=== PATIENT | male | born 1955 | race Caucasian/White ===

== ENCOUNTER 2017-10-27 10:23 | Inpatient (IN) | payer OTHER ==
[2017-10-27] MEDS ORDERED: Alum-Mag Hydrox-Simethicone Susp (30 mL) PO STA (11:51)
[2017-10-27 12:02] LABS: BASO # 0.1 K/uL (0.0-0.2); BASO % 0.9 % (0.0-2.0); EOS # 0.3 K/uL (0.0-0.7); EOS % 3.1 % (0.0-4.0); HEMOGLOBIN 16.5 g/dL (12.0-18.0); LYMPH # 1.2 K/uL (1.0-4.3); MEAN CELL VOLUME 89.6 fL (80.0-94.0); MEAN CORPUSCULAR HEMOGLOBIN 31.3 pg (27.0-31.0); MEAN CORPUSCULAR HGB CONC 34.9 g/dL (33.0-37.0); MEAN PLATELET VOLUME 10.1 fL (7.2-11.7); MONO # 0.6 K/uL (0.0-0.8); MONO % 7.2 % (0.0-10.0); NEUT # 6.1 K/uL (1.8-7.0); NEUT % 73.8 % (50.0-75.0); NRBC % 0.1 % (0.0-2.0); RBC 5.27 Mil/uL (4.40-5.90); WHITE BLOOD COUNT 8.3 K/uL (4.8-10.8)
[2017-10-27 12:16] LABS: ALB/GLOB RATIO 1.1 (1.0-2.1); ALBUMIN 4.1 g/dL (3.5-5.0); ALT/SGPT 29 U/L (21-72); AST/SGOT 32 U/L (17-59); BLOOD UREA NITROGEN 10 mg/dL (9-20); CALCIUM 9.3 mg/dl (8.6-10.4); GFR AFRICAN-AMERICAN > 60; GFR NON-AFRICAN AMERICAN > 60; LIPASE 54 U/L (23-300)
[2017-10-27 12:25] LABS: B-TYPE NATRIURETIC PEPTIDE 38.4 pg/mL (0-900); CK-MB 1.85 ng/mL (0.0-3.38)
--- NOTE | 2017-10-27 12:27 | RAD ---
Chest x-ray single frontal view History: Shortness of breath. Comparison: None available. Findings: Focal somewhat masslike consolidation at the right lung base which may represent focal infiltrate. Correlation with chest CT may be helpful to exclude underlying lesion. Mild venous congestion. Question trace left pleural effusion with mild left basilar consolidative changes. Mild cardiomegaly. Degenerative changes in the spine and shoulders. Impression: Focal somewhat masslike consolidation at the right lung base which may represent focal infiltrate. Correlation with chest CT may be helpful to exclude underlying lesion. Mild venous congestion. Question trace left pleural effusion with mild left basilar consolidative changes. Mild cardiomegaly.
[2017-10-27] MEDS ORDERED: Sodium Chloride 0.9% 1,000 ML ONE (12:29)
[2017-10-27] MEDS ORDERED: Aluminum Hydroxide/Magnesium Hydroxide Susp (30 mL) ONE (12:29)
[2017-10-27] MEDS: Sodium Chloride 0.9% 1,000 ML IV SCH ×2 (12:33→22:00)
[2017-10-27 13:09] LABS: SQUAMOUS EPITHIAL 4 /hpf (0-5); URINE BILIRUBIN NEGATIVE (NEGATIVE); URINE BLOOD NEGATIVE (NEGATIVE); URINE CLARITY Hazy (Clear); URINE COLOR Yellow (YELLOW); URINE GLUCOSE (UA) NORMAL (Normal); URINE LEUKOCYTE ESTERASE NEG Leu/uL (Negative); URINE PROTEIN NEGATIVE (NEGATIVE)
--- NOTE | 2017-10-27 14:24 | C.PDOC ---
History Of Present Illness 62 y/o male with history of HTN, DM, GERD, presents to ED with c/o chest pain for 1 week associated with sob. Patient states pain started as nagging on right side and became increasing more painful yesterday. States it feels "like acid is coming up". (+) orthopnea. Patient reports he saw his PMD 1 week ago for the problem who increased is antacid medication and referral for endoscopy. Reports pain is less today in comparison to yesterday. No h/o stress test. Time Seen by Provider: 10/27/17 11:20 Chief Complaint (Nursing): Chest Pain History Per: Patient History/Exam Limitations: no limitations Onset/Duration Of Symptoms: Days Current Symptoms Are (Timing): Still Present Past Medical History Reviewed: Historical Data, Nursing Documentation, Vital Signs Vital Signs: Last Vital Signs Temp 97.9 F 10/27/17 15:15 Pulse 70 10/27/17 15:15 Resp 20 10/27/17 15:15 BP 138/78 10/27/17 15:15 Pulse Ox 95 10/27/17 18:09 - Medical History PMH: HTN Surgical History: No Surg Hx - [facility] Procedures OTHER LOCAL DESTRUC SKIN (11/08/13) Family History: States: No Known Family Hx - Social History Hx Alcohol Use: No Hx Substance Use: No - Immunization History Hx Tetanus Toxoid Vaccination: No Hx Influenza Vaccination: No Hx Pneumococcal Vaccination: No Review Of Systems Constitutional: Negative for: Fever, Chills Cardiovascular: Positive for: Chest Pain Respiratory: Positive for: Shortness of Breath. Negative for: Cough Gastrointestinal: Negative for: Nausea, Vomiting Skin: Negative for: Rash Neurological: Negative for: Weakness, Numbness Physical Exam - Physical Exam Appears: Non-toxic, No Acute Distress, Other (Obese) Skin: Warm, Dry, No Rash Head: Atraumatic, Normacephalic Eye(s): bilateral: Normal Inspection, EOMI Nose: Normal Oral Mucosa: Moist Neck: Normal ROM, Supple Chest: Symmetrical Cardiovascular: Rhythm Regular Respiratory: Decreased Breath Sounds, No Rales, No Rhonchi, No Wheezing Gastrointestinal/Abdominal: Soft, No Tenderness, No Guarding, No Rebound Extremity: Normal ROM, Capillary Refill (<2 seconds) Neurological/Psych: Oriented x3, Normal Speech, Normal Cognition ED Course And Treatment - Laboratory Results Result Diagrams: 10/27/17 11:55 10/27/17 11:55 ECG: Interpreted By Me, Viewed By Me ECG Rhythm: Sinus Rhythm ECG Interpretation: Normal Rate From EC (BPM) O2 Sat by Pulse Oximetry: 95 (RA) Pulse Ox Interpretation: Normal - Other Rad CXR X-Ray: Viewed By Me, Read By Radiologist Interpretation: Chest x-ray single frontal view. History: Shortness of breath. Comparison: None available. Findings: Focal somewhat masslike consolidation at the right lung base which may represent focal infiltrate. Correlation with chest CT may be helpful to exclude underlying lesion. Mild venous congestion. Question trace left pleural effusion with mild left basilar consolidative changes. Mild cardiomegaly. Degenerative changes in the spine and shoulders. Impression: Focal somewhat masslike consolidation at the right lung base which may represent focal infiltrate. Correlation with chest CT may be helpful to exclude underlying lesion. Mild venous congestion. Question trace left pleural effusion with mild left basilar consolidative changes. Mild cardiomegaly. Chest CT X-Ray: Viewed By Me, Read By Radiologist Interpretation: PROCEDURE: CT Chest with contrast. HISTORY: Midsternal chest pain. COMPARISON: October 27, 2017. Single-view chest. TECHNIQUE: Contiguous axial images were obtained through the chest with intravenous contrast enhancement. Sagittal and coronal reconstructions were performed. IV contrast: 100 cc Visipaque 320. Radiation dose (DLP): 1046.30 mGy-cm. This CT exam was performed using one or more of the following dose reduction techniques: Automated exposure control, adjustment of the mA and/or kV according to patient size, and/or use of iterative reconstruction technique. FINDINGS: LUNGS: Irregular mass abutting the minor fissure anterior segment right lower lobe measuring 2.8 x 3 x 2.2 cm. The mass is suspicious for primary neoplasm of the lung. MEDIASTINUM: Unremarkable thoracic aorta. No aneurysm or dissection. Normal sized heart. Main pulmonary artery unremarkable. No vascular congestion. No lymphadenopathy. PLEURA: No pleural fluid. No pneumothorax. BONES: Lytic lesion T5 vertebral body a small paravertebral soft tissue mass anteriorly. UPPER ABDOMEN: Hepatomegaly, hepatic steatosis without focal hepatic mass. Cholelithiasis without CT evidence of acute cholecystitis. OTHER FINDINGS: None. IMPRESSION: Spiculated mass right lower lobe highly suspicious for primary neoplasm of the lung. Lytic lesion T5 vertebral body suspicious for osseous metastatic disease. Additional benign and/or incidental findings described above. Progress Note: CT chest, EKG, Blood work ordered. Protonix and IV fluids adminsitered. Spoke to Dr. Leonard agreed upon admission under his service. CXR reading reviewed. CT ordered. CT results reviewed. Results discsussed with Dr Leonard at 6pm. Disposition - Disposition Disposition: HOSPITALIZED Disposition Time: 14:00 Condition: STABLE - Clinical Impression Clinical Impression: Chest pain, SOB (shortness of breath) - PA / CARD FEEDER / Resident Statement MD/DO has reviewed & agrees with the documentation as recorded. - Scribe Statement The provider has reviewed the documentation as recorded by the Elke Morelos All medical record entries made by the Elke were at my direction and personally dictated by me. I have reviewed the chart and agree that the record accurately reflects my personal performance of the history, physical exam, medical decision making, and the department course for this patient. I have also personally directed, reviewed, and agree with the discharge instructions and disposition.
[2017-10-27] MEDS ORDERED: Iohexol 300 100 ML IJ ONE (16:43)
[2017-10-27] MEDS ORDERED: Home Med 1 UNIT (Losartan/Hydrochlorothiazide [Losartan-Hctz 50-12.5 Mg Tab] 1 EACH) PO SCH (18:00)
--- NOTE | 2017-10-27 18:01 | CT ---
PROCEDURE: CT Chest with contrast HISTORY: Midsternal chest pain COMPARISON: October 27, 2017. Single-view chest TECHNIQUE: Contiguous axial images were obtained through the chest with intravenous contrast enhancement. Sagittal and coronal reconstructions were performed. IV contrast: 100 cc Visipaque 320 Radiation dose (DLP): 1046.30 mGy-cm. This CT exam was performed using one or more of the following dose reduction techniques: Automated exposure control, adjustment of the mA and/or kV according to patient size, and/or use of iterative reconstruction technique. FINDINGS: LUNGS: Irregular mass abutting the minor fissure anterior segment right lower lobe measuring 2.8 x 3 x 2.2 cm. The mass is suspicious for primary neoplasm of the lung. MEDIASTINUM: Unremarkable thoracic aorta. No aneurysm or dissection. Normal sized heart. Main pulmonary artery unremarkable. No vascular congestion. No lymphadenopathy. PLEURA: No pleural fluid. No pneumothorax. BONES: Lytic lesion T5 vertebral body a small paravertebral soft tissue mass anteriorly. UPPER ABDOMEN: Hepatomegaly, hepatic steatosis without focal hepatic mass. Cholelithiasis without CT evidence of acute cholecystitis. OTHER FINDINGS: None. IMPRESSION: Spiculated mass right lower lobe highly suspicious for primary neoplasm of the lung. Lytic lesion T5 vertebral body suspicious for osseous metastatic disease. Additional benign and/or incidental findings described above.
[2017-10-28 05:01] LABS: HDL CHOLESTEROL 36 mg/dL (30-70)
[2017-10-28 05:12] LABS: LDL CHOLESTEROL 67 mg/dL (0-129)
[2017-10-28] MEDS ORDERED: Aluminum Hydroxide/Magnesium Hydroxide Susp (30 mL) PO STA (05:22)
[2017-10-28] MEDS: Sodium Chloride 0.9% 1,000 ML IV SCH ×4 (05:43→21:00)
[2017-10-28] MEDS: Enoxaparin 40 mg Syringe SC SCH (10:01)
--- NOTE | 2017-10-28 12:39 | CP.PCM.CON ---
History of Present Illness - History of Present Illness History of Present Illness: Reason for consult: Lung mass HPI 62 yo M with PMHx of HTN, DM and GERD came to ER c/o chest pain for one week and sob. Pt states having pain on right side, getting worse yesterday. Pt reports feeling acid come up. PCP recently increased his antiacid medication. Pt admits to orthopnea. Chest Xray done on admission shows incidental findings of a mass like consolidation on right lung base and left pleural effusion. Pt is seen and examined at bedside. Pt states feeling much better. Pt denies chest pain, on physical exam lungs were clear to auscultation bilaterally. Pt will be going for lung biopsy either today or Tuesday. Pt is suspicious of sleep apnea, PMHx: HTN, DM, GERD PSH: none Allergies: NKDA SH: No alcohol, no substance use Review of Systems - Review of Systems All systems: reviewed and no additional remarkable complaints except (chest pain , heartburn) Past Patient History - Past Social History Smoking Status: Heavy Smoker > 10 Cigarettes Daily - CARDIAC Hx Hypertension: Yes - ENDOCRINE/METABOLIC Hx Diabetes Mellitus Type 2: Yes - GASTROINTESTINAL Other/Comment: Acid reflux - PSYCHIATRIC Hx Substance Use: No - SURGICAL HISTORY Other/Comment: cyst removed from neck, Lt. knee surgery - ANESTHESIA Hx Anesthesia: No Hx Anesthesia Reactions: No Meds Allergies/Adverse Reactions: Allergies Allergy/AdvReac Type Severity Reaction Status Date / Time No Known Allergies Allergy Unverified 10/27/17 10:38 - Medications Medications: Current Medications Aspirin (Ecotrin) 81 mg PO DAILY [facility] Last Admin: 10/28/17 10:00 Dose: 81 mg Bisoprolol Fumarate (Zebeta) 5 mg PO BID [facility] Last Admin: 10/28/17 10:01 Dose: 5 mg Enoxaparin Sodium (Lovenox) 40 mg SC DAILY [facility] Last Admin: 10/28/17 10:01 Dose: 40 mg Glimepiride (Amaryl) 4 mg PO BID [facility] Last Admin: 10/28/17 10:03 Dose: 4 mg Home Med (Losartan/Hydrochlorothiazide [Losartan-Hctz 50-12.5 Mg Tab]) 1 each PO BID [facility] Hydralazine HCl (Apresoline) 50 mg PO BID [facility] Last Admin: 10/28/17 10:00 Dose: 50 mg Sodium Chloride (Sodium Chloride 0.9%) 1,000 mls @ 100 mls/hr IV .Q10H [facility] Last Admin: 10/28/17 08:17 Dose: Not Given Metformin HCl (Glucophage) 1,000 mg PO BID [facility] Pantoprazole Sodium (Protonix Inj) 40 mg IVP DAILY [facility] Last Admin: 10/28/17 10:01 Dose: 40 mg Rosuvastatin Calcium (Crestor) 10 mg PO [facility] Sitagliptin Phosphate (Januvia) 100 mg PO DAILY [facility] Last Admin: 10/28/17 10:00 Dose: 100 mg Tamsulosin HCl (Flomax) 0.4 mg PO DAILY [facility] Last Admin: 10/28/17 10:00 Dose: 0.4 mg Physical Exam - Head Exam Head Exam: ATRAUMATIC, NORMOCEPHALIC - Eye Exam Eye Exam: Normal appearance - ENT Exam ENT Exam: Mucous Membranes Moist - Neck Exam Neck exam: Positive for: Normal Inspection - Respiratory Exam Respiratory Exam: Rhonchi, Wheezes - Cardiovascular Exam Cardiovascular Exam: REGULAR RHYTHM - GI/Abdominal Exam GI & Abdominal Exam: Normal Bowel Sounds, Soft - Extremities Exam Extremities exam: Positive for: normal inspection Results - Vital Signs Recent Vital Signs: Last Vital Signs Temp 98.3 F 10/28/17 08:53 Pulse 78 10/28/17 08:53 Resp 20 10/28/17 08:53 BP 137/79 10/28/17 08:53 Pulse Ox 99 10/28/17 08:53 - Labs Result Diagrams: 10/27/17 11:55 10/27/17 11:55 Labs: Laboratory Results - last 24 hr 10/27/17 10/27/17 10/27/17 13:03 16:16 18:01 POC Glucose (mg/dL) 94 Hemoglobin A1c Troponin I < 0.0120 Triglycerides Cholesterol LDL Cholesterol Direct HDL Cholesterol Urine Color Yellow Urine Clarity Hazy Urine pH 7.0 Ur Specific [place] 1.013 Urine Protein Negative Urine Glucose (UA) Normal Urine Ketones Negative Urine Blood Negative Urine Nitrate Negative Urine Bilirubin Negative Urine Urobilinogen 2.0 Ur Leukocyte Esterase Neg Urine WBC (Auto) 1 Urine RBC (Auto) 1 Ur Squamous Epith Cells 4 10/27/17 10/28/17 10/28/17 20:21 04:47 04:47 POC Glucose (mg/dL) 138 H Hemoglobin A1c 6.5 Troponin I < 0.0120 Triglycerides 143 Cholesterol 133 LDL Cholesterol Direct 67 HDL Cholesterol 36 Urine Color Urine Clarity Urine pH Ur Specific [place] Urine Protein Urine Glucose (UA) Urine Ketones Urine Blood Urine Nitrate Urine Bilirubin Urine Urobilinogen Ur Leukocyte Esterase Urine WBC (Auto) Urine RBC (Auto) Ur Squamous Epith Cells 10/28/17 10/28/17 06:40 11:26 POC Glucose (mg/dL) 113 H 102 Hemoglobin A1c Troponin I Triglycerides Cholesterol LDL Cholesterol Direct HDL Cholesterol Urine Color Urine Clarity Urine pH Ur Specific [place] Urine Protein Urine Glucose (UA) Urine Ketones Urine Blood Urine Nitrate Urine Bilirubin Urine Urobilinogen Ur Leukocyte Esterase Urine WBC (Auto) Urine RBC (Auto) Ur Squamous Epith Cells Assessment & Plan - Assessment and Plan (Free Text) Assessment: Assessment and Plan: 1. Rt Lung mass, probable neoplasm - Chest CT 10/27: Spiculated 2.8 x 3 x 2.2 cm mass right lower lobe highly suspicious for primary neoplasm of the lung. Lytic lesion T5 vertebral body suspicious for osseous metastatic disease. - CXR 10/27: Focal somewhat masslike consolidatioon at the Rt lung base which may represent focal inflitrate. Mild venous congestion. Question trace left pelural effusion with mild left basilar consolidative changes. Mild cardiomegaly , - O2 Sat% 96-99 on RA - IR for biopsy of lung mass 2. Chest pain assoc with SOB 2/2 GERD - Negative HIMA x3 - no significant finding on EKG 10/27 3. Sleep Apnea - O2 Sat% 96-99 on RA - recommend sleep study and breathing test as outpatient
[2017-10-28] MEDS: Albuterol-Ipratrop 3 mg / 0.5 (3 ml) UD INH SCH ×2 (13:36→20:07)
--- NOTE | 2017-10-28 17:55 | CARD ---
APPROVED REPORT EXAM: Two-dimensional and M-mode echocardiogram with Doppler and color Doppler. Other Information Quality : FairRhythm : NSR INDICATION Chest Pain RISK FACTORS Obesity 2D DIMENSIONS IVSd1.0 (0.7-1.1cm)LVDd4.7 (3.9-5.9cm) PWd1.1 (0.7-1.1cm)LVDs2.8 (2.5-4.0cm) FS (%) 40.5 %LVEF (%)71.2 (>50%) M-Mode DIMENSIONS Left Atrium (MM)5.24 (2.5-4.0cm)Aortic Root3.59 (2.2-3.7cm) Aortic Cusp Exc.2.25 (1.5-2.0cm) Mitral Valve MV E Lehaxrak15.6cm/sMV A Xnozgznk150.7cm/sE/A ratio0.7 TDI E/Lateral E'0.0E/Medial E'0.0 Tricuspid Valve TR Peak Loteektz016hx/sTR Peak Gr.26mmHg LEFT VENTRICLE The left ventricle is normal size. There is normal left ventricular wall thickness. The left ventricular function is normal. The left ventricular ejection fraction is within the normal range. There is normal LV segmental wall motion. Transmitral Doppler flow pattern is Grade I-abnormal relaxation pattern. RIGHT VENTRICLE The right ventricle is normal size. There is normal right ventricular wall thickness. The right ventricular systolic function is normal. ATRIA The left atrium is mildly dilated. The right atrium is borderline dilated. AORTIC VALVE The aortic valve is normal in structure. There is trace aortic regurgitation. There is no aortic valvular stenosis. MITRAL VALVE The mitral valve is mildly thickened. There is no mitral valve stenosis. There is no mitral valve regurgitation noted. TRICUSPID VALVE The tricuspid valve is normal in structure. GREAT VESSELS The aortic root is normal in size. The IVC was not visualized. PERICARDIAL EFFUSION There is a trace circumferential pericardial effusion. <Conclusion> The left ventricle is normal size. There is normal left ventricular wall thickness. The left ventricular function is normal. The left ventricular ejection fraction is within the normal range. There is normal LV segmental wall motion. Transmitral Doppler flow pattern is Grade I-abnormal relaxation pattern.
--- NOTE | 2017-10-28 22:00 | CARD ---
APPROVED REPORT EKG Measurement Heart [id number] CT [id number] <Conclusion> Normal sinus rhythm Normal ECG
[2017-10-29] MEDS ORDERED: Aluminum Hydroxide/Magnesium Hydroxide Susp (30 mL) PO ONE (00:45)
--- NOTE | 2017-10-29 00:50 | CON ---
DATE: 10/28/2017. REASON FOR CONSULTATION: Shortness of breath. HISTORY OF PRESENT ILLNESS: The patient is a 62-year-old morbidly obese male, who is a smoker. He has a history of gastroesophageal reflux according to him. He presented because of shortness of breath. Chest CT scan revealed speculated mass in the right lower lobe, highly suspicious of primary neoplasm. Lytic lesions in T4 vertebra, suspicious of osseus metastatic lesion. The patient denies any recent loss of weight and denies any hemoptysis. SOCIAL HISTORY: The patient is a smoker. MEDICATIONS: Amaryl 4 mg p.o. twice a day, hydralazine 50 mg twice a day, Crestor 10 mg once a day, aspirin 81 mg once a day, Januvia 100 mg once a day, Lovenox 40 mg subcutaneous once a day, Zebeta 5 mg twice a day, Spiriva 18 mcg inhalation daily. PHYSICAL EXAMINATION: GENERAL: The patient is a morbidly obese male, who does not appear to be in acute distress. VITAL SIGNS: Blood pressure 137/79, heart rate 78, temperature 98.3, respirations 20. HEENT: Normocephalic. CHEST: Bilateral rhonchi. HEART: S1, S2 regular. EXTREMITIES: Trace leg edema. LABORATORY DATA: Hemoglobin and hematocrit 16.5 and 47.2, white count and platelet count are within normal limits. SMA-7 is within normal limits, except for glucose of 116. Three sets of troponins are negative. Lipid profile is within normal limits. Chest x-ray reveals cardiomegaly, prominent bronchovascular markings and questionable right lower lobe mass. EKG revealed normal sinus rhythm. ASSESSMENT: 1. Right lower lobe lung mass with questionable bony metastases. 2. Hypertension and diabetes mellitus. RECOMMENDATIONS: Continue current metformin, subcutaneous Lovenox, Protonix and Zebeta. I will review the echocardiographic study that was performed today. The plan is to perform a CT guided needle biopsy on the patient's right lower lobe lung mass. Lopez Daniels MD
[2017-10-29] MEDS: Albuterol-Ipratrop 3 mg / 0.5 (3 ml) UD INH SCH ×4 (01:22→20:08)
[2017-10-29] MEDS: Sodium Chloride 0.9% 1,000 ML IV SCH ×2 (05:31)
--- NOTE | 2017-10-29 08:51 | HP ---
HISTORY OF PRESENT ILLNESS: This is a 62-year-old male who is morbidly obese with history of multiple medical problems, presented to emergency room with worsening chest pain over 1 week duration. The patient stated that he has a feeling that acid was coming up, and the proton pump inhibitor was increased last week but the pain continued on the right side and was increasing with movement as well as in breathing. The patient presented to emergency room for evaluation, and subsequently, admitted for further management. Positive exertional shortness of breath. Other review of systems is negative. ALLERGIES: NO KNOWN ALLERGY. MEDICATIONS: As per MAR. SOCIAL HISTORY: Smoker. No EtOH or substance abuse. FAMILY HISTORY: Not contributory. PAST MEDICAL HISTORY: Type 2 diabetes mellitus, hypertension. PHYSICAL EXAMINATION: GENERAL: The patient is in bed, not in any cardiopulmonary distress at the time of this examination. VITAL SIGNS: Blood pressure 137/79, temperature 98.3, respiratory rate 20, and pulse 78. HEENT: Pupils equal and reactive to light. Normal-appearing mucosa of the conjunctivae, oropharynx, and nasal membrane mucosa. NECK: Supple. No JVD. No carotid bruit. No lymph node. No thyromegaly. CHEST AND LUNGS: Bilateral symmetrical expansion. Good air exchange. No rales, no rhonchi. CARDIOVASCULAR SYSTEM: PMI not localized. S1, S2. No additional sounds. ABDOMEN: Normoactive bowel sounds. No tenderness. No organomegaly. No masses. EXTREMITIES: No cyanosis, no clubbing, no edema. A[employer] COMMODITIES GRADER: Alert, awake, oriented x2. No neurological deficit could be appreciated. Both chest x-ray and CAT scan showed that there is a right lung mass, and there is a lytic lesion on T5 suggestive for metastatic disease. ASSESSMENT: 1. Right lung mass as a possible cause for right-sided chest pain with lytic lesion at T5. 2. Type 2 diabetes mellitus. 3. Hypertension. 4. Gastroesophageal reflux disease. PLAN: We will do cardiac enzymes to rule out myocardial infarction. Cardiology and pulmonary consult, and IR consult for possible biopsy. Accu-Cheks with insulin coverage. Resume the patient's home medications. Lucero Leonard MD [facility] # [id number]
[2017-10-29] MEDS: Tiotropium 18 mcg Cap For Inhalation INH SCH (09:00)
[2017-10-29] MEDS: Enoxaparin 40 mg Syringe SC SCH (09:52)
--- NOTE | 2017-10-29 14:52 | PN ---
DATE: SUBJECTIVE: The patient complains of acid pain. He denies any chest pain retrosternally. PHYSICAL EXAMINATION: VITAL SIGNS: Blood pressure 132/82, heart rate 63, temperature 97.8, respirations 20. HEENT: Normocephalic. CHEST: Bilateral rhonchi. HEART: S1 and S2, regular. EXTREMITIES: 1+ pitting edema. LABORATORY DATA: Today's blood sugars are 104, 115, 151. Echocardiographic study revealed normal left ventricular size, wall thickness, and systolic function and grade 1 abnormal relaxation pattern. ASSESSMENT: 1. Right lower lobe lung mass. 2. Chronic obstructive lung disease. 3. Chest pain, myocardial infarction ruled out. 4. History of acid reflux. RECOMMENDATIONS: Continue hydralazine 50 mg twice a day, Cozaar 50 mg once a day, subcutaneous Lovenox at 40 mg once a day, hydrochlorothiazide 12.5 mg once a day, Protonix at 40 mg intravenously once a day, Zebeta at 5 mg twice a day. Discontinue aspirin for now. Lopez Daniels MD
--- NOTE | 2017-10-29 18:24 | CP.PCM.PN ---
Subjective - Date & Time of Evaluation Date of Evaluation: 10/29/17 Time of Evaluation: 16:00 - Subjective Subjective: The patient seen and examined Complaining of nasal congestion and postnasal drip GERD much better Denies shortness of breath Afebrile Lung biopsy on Tuesday Start Flonase Objective - Vital Signs/Intake and Output Vital Signs (last 24 hours): Temp Pulse Resp BP Pulse Ox 98.2 F 80 20 157/78 H 95 10/29/17 15:00 10/29/17 16:00 10/29/17 15:00 10/29/17 15:00 10/29/17 15:00 - Medications Medications: Current Medications Albuterol/Ipratropium (Duoneb 3 Mg/0.5 Mg (3 Ml) Ud) 3 ml INH RQ6 [facility] Last Admin: 10/29/17 13:09 Dose: 3 ml Bisoprolol Fumarate (Zebeta) 5 mg PO BID [facility] Last Admin: 10/29/17 17:53 Dose: 5 mg Enoxaparin Sodium (Lovenox) 40 mg SC DAILY [facility] Last Admin: 10/29/17 09:52 Dose: 40 mg Fluticasone Propionate (Flonase) 1 spr AIDEN DAILY [facility] Glimepiride (Amaryl) 4 mg PO BID [facility] Last Admin: 10/29/17 17:11 Dose: Not Given Hydralazine HCl (Apresoline) 50 mg PO BID [facility] Last Admin: 10/29/17 17:53 Dose: 50 mg Hydrochlorothiazide (Microzide) 12.5 mg PO DAILY [facility] Last Admin: 10/29/17 09:52 Dose: 12.5 mg Sodium Chloride (Sodium Chloride 0.9%) 1,000 mls @ 100 mls/hr IV .Q10H [facility] Last Admin: 10/29/17 05:31 Dose: 100 mls/hr Losartan Potassium (Cozaar) 50 mg PO DAILY [facility] Last Admin: 10/29/17 09:52 Dose: 50 mg Metformin HCl (Glucophage) 1,000 mg PO BID [facility] Pantoprazole Sodium (Protonix Inj) 40 mg IVP DAILY [facility] Last Admin: 10/29/17 09:52 Dose: 40 mg Rosuvastatin Calcium (Crestor) 10 mg PO HS [facility] Last Admin: 10/28/17 22:05 Dose: 10 mg Sitagliptin Phosphate (Januvia) 100 mg PO DAILY [facility] Last Admin: 10/29/17 09:52 Dose: 100 mg Tamsulosin HCl (Flomax) 0.4 mg PO DAILY [facility] Last Admin: 10/29/17 09:52 Dose: 0.4 mg Tiotropium [place] (Spiriva) 18 mcg INH RQ24 [facility] Last Admin: 10/29/17 09:00 Dose: 18 mcg - Labs Labs: 10/27/17 11:55 10/27/17 11:55
--- NOTE | 2017-10-30 01:22 | PN ---
DATE: 10/29/2017 SUBJECTIVE: The patient was seen today, 10/29/2017. He is still having some right-sided chest pain, but the hyperacidity is improving. PHYSICAL EXAMINATION: VITAL SIGNS: Blood pressure is 157/78, temperature 98.2, respiratory rate 20, and pulse 68. HEENT: Pupils equal, and reactive to light. Normal-appearing mucosa of the conjunctivae, oropharynx, and nasal membrane mucosa. NECK: Supple. No JVD. No carotid bruit. No lymph node. No thyromegaly. CHEST/LUNGS: Bilateral symmetrical expansion. Good air exchange. No rales, no rhonchi. CARDIOVASCULAR SYSTEM: PMI not localized. S1, S2. No additional sounds. ABDOMEN: Normoactive bowel sounds. No tenderness. No organomegaly. No masses. EXTREMITIES: No cyanosis, no clubbing, no edema. LINING SEWER: Alert, awake, and oriented x3. No neurological deficit could be appreciated. ASSESSMENT: 1. Chest pain, likely musculoskeletal with right lung mass and lytic lesion in T5 suggestive of metastasis. 2. Gastroesophageal reflux disease. 3. Hypertension. 4. Type 2 diabetes mellitus. PLAN: Continue current medications. The patient is scheduled for CT-guided biopsy by IR. Lucero Leonard MD
[2017-10-30] MEDS: Albuterol-Ipratrop 3 mg / 0.5 (3 ml) UD INH SCH ×4 (01:41→20:39)
[2017-10-30 06:44] LABS: HEMOGLOBIN 15.1 g/dL (12.0-18.0); MEAN CELL VOLUME 89.8 fL (80.0-94.0); MEAN CORPUSCULAR HEMOGLOBIN 31.3 pg (27.0-31.0); MEAN CORPUSCULAR HGB CONC 34.8 g/dL (33.0-37.0); RBC 4.84 Mil/uL (4.40-5.90); WHITE BLOOD COUNT 6.9 K/uL (4.8-10.8)
[2017-10-30 06:56] LABS: INR 1.1
[2017-10-30 07:06] LABS: ALBUMIN 3.6 g/dL (3.5-5.0); ALT/SGPT 36 U/L (21-72); AST/SGOT 35 U/L (17-59); BLOOD UREA NITROGEN 13 mg/dL (9-20); CALCIUM 8.6 mg/dl (8.6-10.4); GFR AFRICAN-AMERICAN > 60; GFR NON-AFRICAN AMERICAN > 60
[2017-10-30] MEDS: Tiotropium 18 mcg Cap For Inhalation INH SCH (07:37)
[2017-10-30] MEDS: Fluticasone Nasal 50 mcg/Spray NAS SCH (09:33)
[2017-10-30] MEDS ORDERED: Fluticasone Nasal 50 mcg/Spray NAS SCH (10:00)
--- NOTE | 2017-10-30 19:17 | PN ---
DATE: 10/30/2017 SUBJECTIVE: The patient has been experiencing what he describes as acid reflux. PHYSICAL EXAMINATION: VITAL SIGNS: Blood pressure 133/77, heart rate 63, temperature 97.9, respirations 18. HEENT: Head is normocephalic. CHEST: Bilateral rhonchi. HEART: S1 and S2, regular. EXTREMITIES: 1+ pitting edema. LABORATORY DATA: Today's SMA-7 is within normal limits except for glucose of 112. PT, PTT, INR are within normal limit. Today's hemoglobin, hematocrit, white count, and platelet count are within normal limit. ASSESSMENT: 1. Right lower lobe lung mass. 2. Chronic obstructive lung disease. 3. Uncontrolled diabetes mellitus. RECOMMENDATIONS: Continue current Amaryl, hydralazine Cozaar, Crestor, albuterol, Flonase, metformin. Hold subcutaneous Lovenox tomorrow for the planned lung biopsy. Lopez Daniels MD
--- NOTE | 2017-10-31 00:42 | PN ---
DATE: 10/30/2017 SUBJECTIVE: The patient is seen today, 10/30/2017. He still has some right-sided chest pain. OBJECTIVE: VITAL SIGNS: Blood pressure is 134/85, temperature 98.3, respiratory rate 20, pulse 65. HEENT: Pupils equal and reactive to light. Normal-appearing mucosa of the conjunctivae, oropharynx, and nasal membrane mucosa. NECK: Supple. No JVD. No carotid bruit. No lymph node. No thyromegaly. CHEST AND LUNGS: Bilateral symmetrical expansion. Good air exchange. No rales, no rhonchi. CARDIOVASCULAR SYSTEM: PMI not localized. S1, S2. No additional sounds. ABDOMEN: Normoactive bowel sounds. No tenderness. No organomegaly. No masses. EXTREMITIES: No cyanosis, no clubbing, no edema. TRANSLATOR/INTERPRETER: Alert, awake, oriented x2. No neurological deficit could be appreciated. ASSESSMENT: 1. Chest pain, myocardial infarction ruled out. 2. Right lung mass with lytic lesion in T5 suggestive of metastasis. 3. Type 2 diabetes mellitus. 4. Hypertension. 5. Smoker. PLAN: Discussed the patient's condition with Cardiology who suggested to do a stress test. The patient also for CT-guided biopsy of the right lung mass by IR. Lucero Leonard MD
[2017-10-31] MEDS: Albuterol-Ipratrop 3 mg / 0.5 (3 ml) UD INH SCH ×4 (01:19→21:09)
[2017-10-31] MEDS: Tiotropium 18 mcg Cap For Inhalation INH SCH (08:10)
[2017-10-31] MEDS ORDERED: Midazolam 2 MG/2 ML VIAL ONE (09:47)
[2017-10-31] MEDS: Fluticasone Nasal 50 mcg/Spray NAS SCH (10:20)
--- NOTE | 2017-10-31 10:28 | PCM.SURG1 ---
Surgeon's Initial Post Op Note - Surgeon's Notes Surgeon: Justin Escalona MD Associate Professor Of Geology: NONE Type of Anesthesia: IV Sedation Pre-Operative Diagnosis: Right lung nodule Operative Findings: CT showed a spiculated 2.8 cm right lung nodule. Post-Operative Diagnosis: Right lung nodule Operation Performed: CT guided core biopsy. Specimen/Specimens Removed: 20-gauge core x 2 Estimated Blood Loss: EBL {In ML}: 0 Blood Products Given: N/A Drains Used: No Drains Post-Op Condition: Fair Date of Surgery/Procedure: 10/31/17 Time of Surgery/Procedure: 10:25
--- NOTE | 2017-10-31 11:34 | CT ---
. PROCEDURE: Date of procedure: 10/31/2017 Procedure: 1. CT-guided lung nodule biopsy, CPT [address] Guidance for biopsy, [address] Radiation: 1151.52 mGy-cm Medications: The patient was sedated by anesthesiologist along with physiologic monitoring. HISTORY: Right upper lobe lung nodule TECHNIQUE: Following informed consent, the Pt's chest was marked. The Pt was placed prone on the CT table and procedure time out was performed. A noncontrast CT scan was performed. Noncontrast CT scan confirmed the presence of a peripheral 2.8 cm mass. A skin localizer was placed on the patient's right back and a repeat CT scan was performed. The skin was marked, prepped, and draped in the usual sterile fashion. After the skin was anesthetized with lidocaine and the patient sedated by the anesthesiologist, a 20 gauge core needle was advanced percutaneously under direct CT guidance into the mass. Upon confirmation of needle position, two 20-gauge core specimens were obtained and sent for routine pathology. The needle was removed and a xeroform dressing was applied. A post biopsy CT scan showed no pneumothorax. IMPRESSION: CT guided core biopsy right lung nodule.
--- NOTE | 2017-10-31 13:03 | RAD ---
PROCEDURE: CHEST RADIOGRAPH, 1 VIEW HISTORY: Status post right lung mass biopsy. COMPARISON: None available. FINDINGS: LUNGS: Slight vascular congestion. Opacity right lower lobe consistent with lung nodule seen on CT scan. PLEURA: No pneumothorax or pleural fluid seen. CARDIOVASCULAR: Slightly enlarged cardiopericardial silhouette. OSSEOUS STRUCTURES: No significant abnormalities. VISUALIZED UPPER ABDOMEN: Normal. OTHER FINDINGS: None. IMPRESSION: No pneumothorax following biopsy of right lung nodule.
--- NOTE | 2017-10-31 15:46 | CP.PCM.PN ---
Subjective - Date & Time of Evaluation Date of Evaluation: 10/31/17 Time of Evaluation: 11:30 - Subjective Subjective: Patient seen and examined at bedside after returning from R-guided lung biopsy today. The patient feels better and would like to go home. Informed the patient that from a pulmonary standpoint he is ready for discharge but will need outpatient follow-up. Assessment and Plan: 1. Rt Lung mass, probable neoplasm - Chest CT 10/27: Spiculated 2.8 x 3 x 2.2 cm mass right lower lobe highly suspicious for primary neoplasm of the lung. Lytic lesion T5 vertebral body suspicious for osseous metastatic disease. - CXR 10/27: Focal somewhat masslike consolidatioon at the Rt lung base which may represent focal inflitrate. Mild venous congestion. Question trace left pelural effusion with mild left basilar consolidative changes. Mild cardiomegaly , - lung biopsy today, results pending 2. Chest pain assoc with SOB 2/2 GERD - protonix 3. Sleep Apnea - O2 Sat% 96-99 on RA - recommend sleep study and breathing test as outpatient Objective - Vital Signs/Intake and Output Vital Signs (last 24 hours): Temp Pulse Resp BP Pulse Ox 97.6 F 73 20 138/81 97 10/31/17 08:28 10/31/17 12:21 10/31/17 08:28 10/31/17 08:28 10/31/17 08:28 Intake and Output: 10/31/17 10/31/17 06:59 18:59 Intake Total 480 350 Balance 480 350 - Medications Medications: Current Medications Albuterol/Ipratropium (Duoneb 3 Mg/0.5 Mg (3 Ml) Ud) 3 ml INH RQ6 [facility] Last Admin: 10/31/17 13:43 Dose: Not Given Bisoprolol Fumarate (Zebeta) 5 mg PO BID [facility] Last Admin: 10/31/17 10:20 Dose: Not Given Enoxaparin Sodium (Lovenox) 40 mg SC DAILY [facility] Last Admin: 10/29/17 09:52 Dose: 40 mg Fluticasone Propionate (Flonase) 1 spr AIDEN DAILY [facility] Last Admin: 10/31/17 10:20 Dose: Not Given Glimepiride (Amaryl) 4 mg PO BID [facility] Last Admin: 10/31/17 09:19 Dose: Not Given Hydralazine HCl (Apresoline) 50 mg PO BID [facility] Last Admin: 10/31/17 10:19 Dose: Not Given Hydrochlorothiazide (Microzide) 12.5 mg PO DAILY [facility] Last Admin: 10/31/17 11:51 Dose: 12.5 mg Losartan Potassium (Cozaar) 50 mg PO DAILY [facility] Last Admin: 10/31/17 11:49 Dose: 50 mg Metformin HCl (Glucophage) 1,000 mg PO BID [facility] Pantoprazole Sodium (Protonix Inj) 40 mg IVP DAILY [facility] Last Admin: 10/31/17 10:20 Dose: Not Given Rosuvastatin Calcium (Crestor) 10 mg PO HS [facility] Last Admin: 10/30/17 21:57 Dose: 10 mg Sitagliptin Phosphate (Januvia) 100 mg PO DAILY [facility] Last Admin: 10/31/17 10:20 Dose: Not Given Tamsulosin HCl (Flomax) 0.4 mg PO DAILY [facility] Last Admin: 10/31/17 11:50 Dose: 0.4 mg Tiotropium [place] (Spiriva) 18 mcg INH RQ24 [facility] Last Admin: 10/31/17 08:10 Dose: 18 mcg - Labs Labs: 10/30/17 06:38 10/30/17 06:38 PT 12.0 SECONDS (9.7-12.2) 10/30/17 06:38 INR 1.1 10/30/17 06:38 APTT 34 SECONDS (21-34) 10/30/17 06:38
--- NOTE | 2017-10-31 21:23 | PN ---
DATE: SUBJECTIVE: The patient denies any chest pain. He underwent needle-guided biopsy. Chest x-ray revealed normal pneumothorax. PHYSICAL EXAMINATION: VITAL SIGNS: Blood pressure 138/81, heart rate 64, temperature 97.6, respirations 20. HEENT: Normocephalic. CHEST: Clear. HEART: S1 and S2, regular. EXTREMITIES: Trace leg edema. The patient underwent a treadmill stress test; however, he exercised for 3 minutes on Sanjay protocol. Case was terminated due to significant shortness of breath. The patient achieved 72% of the predicted maximal heart rate. There was no chest pain or ischemic EKG changes. ASSESSMENT: 1. Right lower lobe lung mass with possible spinal Met. 2. Atypical chest pain. 3. Diabetes mellitus. 4. Morbid obesity. 5. Chronic obstructive lung disease. RECOMMENDATIONS: The case was discussed with the primary physician. Continue current conservative medical management. Cardiac catheterization, so far is not justified unless the patient has more typical current level of chest pain or has ischemic EKG changes. I will obtain venous Doppler of the lower extremities. Lopez Daniels MD MTDRichard
--- NOTE | 2017-10-31 22:24 | CP.PCM.CON ---
History of Present Illness - History of Present Illness History of Present Illness: 62 year old male with a history of tobacco abuse, DM, HTN, GERD, presenting with chest pain and shortness of breath, found to have a RLL lung mass s/p percutaneous biopsy. The patient notes to right sided chest pain with shortness of breath, worsening for about 1 week which prompted him to come to the hospital. He feels his pain is related to acid reflux and had a recent increase in his antacid medication by his PMD. Review of his imaging shows a 3cm RLL mass with a T5 lytic lesion. Past medical history: tobacco abuse, HTN, DM, GERD Past surgical history: Neck and knee surgery Family history: Mother had cervical cancer Social history: 1/2ppd x 40 years, denies alcohol, and illicit drug use. Allergies: NKA Review of systems: All remaining review of systems including HEENT, cardiovascular, respiratory, gastrointestinal, genitourinary, musculoskeletal, dermatologic, neurologic, and psychiatric are negative unless mentioned in the HPI. Past Patient History - Past Social History Smoking Status: Current Some Days Smoker - CARDIAC Hx Hypertension: Yes - ENDOCRINE/METABOLIC Hx Diabetes Mellitus Type 2: Yes - MUSCULOSKELETAL/RHEUMATOLOGICAL Hx Falls: No - GASTROINTESTINAL Other/Comment: Acid reflux - PSYCHIATRIC Hx Substance Use: No - SURGICAL HISTORY Other/Comment: cyst removed from neck, Lt. knee surgery - ANESTHESIA Hx Anesthesia: No Hx Anesthesia Reactions: No Meds Allergies/Adverse Reactions: Allergies Allergy/AdvReac Type Severity Reaction Status Date / Time No Known Allergies Allergy Unverified 10/27/17 10:38 - Medications Medications: Current Medications Albuterol/Ipratropium (Duoneb 3 Mg/0.5 Mg (3 Ml) Ud) 3 ml INH RQ6 [facility] Last Admin: 10/31/17 21:09 Dose: 3 ml Bisoprolol Fumarate (Zebeta) 5 mg PO BID [facility] Last Admin: 10/31/17 18:30 Dose: 5 mg Enoxaparin Sodium (Lovenox) 40 mg SC DAILY [facility] Last Admin: 10/29/17 09:52 Dose: 40 mg Fluticasone Propionate (Flonase) 1 spr AIDEN DAILY [facility] Last Admin: 10/31/17 10:20 Dose: Not Given Glimepiride (Amaryl) 4 mg PO BID [facility] Last Admin: 10/31/17 18:30 Dose: Not Given Hydralazine HCl (Apresoline) 50 mg PO BID [facility] Last Admin: 10/31/17 18:30 Dose: 50 mg Hydrochlorothiazide (Microzide) 12.5 mg PO DAILY [facility] Last Admin: 10/31/17 11:51 Dose: 12.5 mg Losartan Potassium (Cozaar) 50 mg PO DAILY [facility] Last Admin: 10/31/17 11:49 Dose: 50 mg Metformin HCl (Glucophage) 1,000 mg PO BID [facility] Pantoprazole Sodium (Protonix Inj) 40 mg IVP DAILY [facility] Last Admin: 10/31/17 10:20 Dose: Not Given Rosuvastatin Calcium (Crestor) 10 mg PO HS [facility] Last Admin: 10/31/17 21:27 Dose: 10 mg Sitagliptin Phosphate (Januvia) 100 mg PO DAILY [facility] Last Admin: 10/31/17 10:20 Dose: Not Given Tamsulosin HCl (Flomax) 0.4 mg PO DAILY [facility] Last Admin: 10/31/17 11:50 Dose: 0.4 mg Tiotropium [place] (Spiriva) 18 mcg INH RQ24 [facility] Last Admin: 10/31/17 08:10 Dose: 18 mcg Physical Exam - Head Exam Head Exam: ATRAUMATIC - Eye Exam Eye Exam: Normal appearance - ENT Exam ENT Exam: Mucous Membranes Dry - Respiratory Exam Respiratory Exam: NORMAL BREATHING PATTERN - Cardiovascular Exam Cardiovascular Exam: +S1, +S2 - GI/Abdominal Exam GI & Abdominal Exam: Normal Bowel Sounds - Neurological Exam Neurological exam: Oriented x3 - Psychiatric Exam Psychiatric exam: Normal Affect, Normal Mood - Skin Skin Exam: Warm Results - Vital Signs Recent Vital Signs: Last Vital Signs Temp 98.4 F 10/31/17 15:48 Pulse 83 10/31/17 16:00 Resp 20 10/31/17 15:48 BP 145/91 H 10/31/17 15:48 Pulse Ox 95 10/31/17 15:48 - Labs Result Diagrams: 10/30/17 06:38 10/30/17 06:38 Labs: Laboratory Results - last 24 hr 10/31/17 10/31/17 10/31/17 06:24 09:10 12:00 POC Glucose (mg/dL) 96 116 H 102 10/31/17 10/31/17 17:06 20:51 POC Glucose (mg/dL) 107 86 Assessment & Plan (1) Lung mass Assessment and Plan: concerning for malignancy s/p percutaneous biopsy Lytic lesion concerning for metastatic disease outpatient f/u of biopsy outpatient PET CT scan and MRI brain to obtain baseline staging Thank you for this interesting consult. Status: Acute
--- NOTE | 2017-11-01 00:48 | PN ---
DATE: 10/31/2017 SUBJECTIVE: The patient is seen today, 10/31/2017. He is still having right-sided chest pain, status post CT-guided biopsy by interventional radiologist today. OBJECTIVE: VITAL SIGNS: Blood pressure 145/91, temperature 98.4, respiratory rate 20, and pulse 80. HEENT: Pupils equal and reactive to light. Normal-appearing mucosa of the conjunctivae, oropharynx, and nasal membrane mucosa. NECK: Supple. No JVD. No carotid bruit. No lymph nodes. No thyromegaly. CHEST AND LUNGS: Bilateral symmetrical expansion. Good air exchange. No rales. No rhonchi. CARDIOVASCULAR SYSTEM: PMI not localized. S1, S2. No additional sounds. ABDOMEN: Normoactive bowel sounds. No tenderness. No organomegaly. No masses. EXTREMITIES: No cyanosis, no clubbing, no edema. AWNING CRAFTSMAN: Alert, awake, and oriented x2. No neurological deficit could be appreciated. ASSESSMENT: 1. Chest pain. Differential diagnosis cardiac versus gastroesophageal reflux. 2. Right lung mass with lytic lesion on T5. 3. Hypertension. 4. Type 2 diabetes mellitus. 5. Smoker. 6. Morbid obesity. PLAN: I discussed the patient's condition with Cardiology who did a submaximal stress test and cleared the patient for EGD. GI consult was called and also oncology consult was called for lung mass with possible bone metastasis. Lucero Leonard MD
[2017-11-01] MEDS: Albuterol-Ipratrop 3 mg / 0.5 (3 ml) UD INH SCH ×4 (03:35→20:13)
--- NOTE | 2017-11-01 08:22 | CP.PCM.CON ---
History of Present Illness - History of Present Illness History of Present Illness: ASked to see pt for epig pain and reflux. h/o DM, HTN, obesity. Admitted for CP and SOB. Pt reports worse reflux x 2 weeks- severe.- improving with PPI. Reports dysphagia 4 mo ago- which improved. Denies wt loss, RB Review of Systems - Constitutional Constitutional: absent: Anorexia, Chills, Weight Gain, Weight Loss - Cardiovascular Cardiovascular: Chest Pain, Dyspnea - Respiratory Respiratory: Dyspnea on Exertion. absent: Hemoptysis - Gastrointestinal Gastrointestinal: Abdominal Pain, Belching, Dysphagia. absent: Coffee Ground Emesis, Constipation, Diarrhea, Hematemesis, Hematochezia, Loose Stools, Melena , Odynophagia - Genitourinary Genitourinary: absent: Dysuria, Hematuria - Musculoskeletal Musculoskeletal: absent: Muscle Cramps - Integumentary Integumentary: absent: Jaundice - Neurological Neurological: absent: Convulsions - Psychiatric Psychiatric: absent: Hallucinations Past Patient History - Past Social History Smoking Status: Current Some Days Smoker - CARDIAC Hx Hypertension: Yes - ENDOCRINE/METABOLIC Hx Diabetes Mellitus Type 2: Yes - MUSCULOSKELETAL/RHEUMATOLOGICAL Hx Falls: No - GASTROINTESTINAL Other/Comment: Acid reflux - PSYCHIATRIC Hx Substance Use: No - SURGICAL HISTORY Other/Comment: cyst removed from neck, Lt. knee surgery - ANESTHESIA Hx Anesthesia: No Hx Anesthesia Reactions: No Meds Allergies/Adverse Reactions: Allergies Allergy/AdvReac Type Severity Reaction Status Date / Time No Known Allergies Allergy Unverified 10/27/17 10:38 - Medications Medications: Current Medications Albuterol/Ipratropium (Duoneb 3 Mg/0.5 Mg (3 Ml) Ud) 3 ml INH RQ6 [facility] Last Admin: 11/01/17 03:35 Dose: Not Given Bisoprolol Fumarate (Zebeta) 5 mg PO BID [facility] Last Admin: 10/31/17 18:30 Dose: 5 mg Enoxaparin Sodium (Lovenox) 40 mg SC DAILY [facility] Last Admin: 10/29/17 09:52 Dose: 40 mg Fluticasone Propionate (Flonase) 1 spr AIDEN DAILY [facility] Last Admin: 10/31/17 10:20 Dose: Not Given Glimepiride (Amaryl) 4 mg PO BID [facility] Last Admin: 10/31/17 18:30 Dose: Not Given Hydralazine HCl (Apresoline) 50 mg PO BID [facility] Last Admin: 10/31/17 18:30 Dose: 50 mg Hydrochlorothiazide (Microzide) 12.5 mg PO DAILY [facility] Last Admin: 10/31/17 11:51 Dose: 12.5 mg Losartan Potassium (Cozaar) 50 mg PO DAILY [facility] Last Admin: 10/31/17 11:49 Dose: 50 mg Metformin HCl (Glucophage) 1,000 mg PO BID [facility] Pantoprazole Sodium (Protonix Inj) 40 mg IVP DAILY [facility] Last Admin: 10/31/17 10:20 Dose: Not Given Rosuvastatin Calcium (Crestor) 10 mg PO HS [facility] Last Admin: 10/31/17 21:27 Dose: 10 mg Sitagliptin Phosphate (Januvia) 100 mg PO DAILY [facility] Last Admin: 10/31/17 10:20 Dose: Not Given Tamsulosin HCl (Flomax) 0.4 mg PO DAILY [facility] Last Admin: 10/31/17 11:50 Dose: 0.4 mg Tiotropium [place] (Spiriva) 18 mcg INH RQ24 [facility] Last Admin: 10/31/17 08:10 Dose: 18 mcg Physical Exam - Constitutional Appears: Well - Respiratory Exam Respiratory Exam: Clear to Auscultation Bilateral - Cardiovascular Exam Cardiovascular Exam: RRR - GI/Abdominal Exam GI & Abdominal Exam: Normal Bowel Sounds, Soft. absent: Distended, Firm, Guarding, Mass, Rebound, Tenderness - Extremities Exam Extremities exam: Negative for: calf tenderness - Neurological Exam Neurological exam: Alert, Oriented x3 Results - Vital Signs Recent Vital Signs: Last Vital Signs Temp 98.4 F 11/01/17 04:10 Pulse 51 L 11/01/17 04:17 Resp 20 11/01/17 04:10 BP 138/83 11/01/17 04:10 Pulse Ox 96 11/01/17 04:10 - Labs Result Diagrams: 10/30/17 06:38 10/30/17 06:38 Labs: Laboratory Results - last 24 hr 10/31/17 10/31/17 10/31/17 09:10 12:00 17:06 POC Glucose (mg/dL) 116 H 102 107 10/31/17 11/01/17 20:51 06:19 POC Glucose (mg/dL) 86 102 Assessment & Plan (1) Diabetes mellitus Status: Acute (2) HTN (hypertension) Status: Acute (3) Epigastric pain Assessment and Plan: Consider gastritis. I doubt ulcer. Had dysphagia- but waas MONTHS ago. Status: Acute (4) Esophageal reflux Assessment and Plan: GERD. Dysphagia- gone Consider EGD. Pt reports esophogram 2 yrs ago. Pt wants to go home. Status: Acute (5) Colon polyps Assessment and Plan: Had colonosocpy last year showing 2 benign polyps and a abnormal colon fold with a dimple. this could be an inverted diverticulum, it was not removed or biopsied. I had recommended to patient to go to [facility] for colonoscopic ultrasound- he failed to do this. I told patient now that he should do this when he is discharged. I explained risk for polyp and cancer. Status: Acute (6) Chest pain Status: Acute (7) Lung mass Status: Acute (8) SOB (shortness of breath) Status: Acute
[2017-11-01] MEDS: Tiotropium 18 mcg Cap For Inhalation INH SCH (08:48)
[2017-11-01] MEDS: Fluticasone Nasal 50 mcg/Spray NAS SCH ×2 (10:17→21:11)
--- NOTE | 2017-11-01 13:11 | CP.PCM.PN ---
Subjective - Date & Time of Evaluation Date of Evaluation: 11/01/17 Time of Evaluation: 13:00 - Subjective Subjective: No complaints, seen eating. Objective - Vital Signs/Intake and Output Vital Signs (last 24 hours): Temp Pulse Resp BP Pulse Ox 98.3 F 59 L 20 145/84 95 11/01/17 08:42 11/01/17 08:42 11/01/17 08:42 11/01/17 08:42 11/01/17 08:42 Intake and Output: 11/01/17 11/01/17 06:59 18:59 Intake Total 400 Balance 400 - Medications Medications: Current Medications Albuterol/Ipratropium (Duoneb 3 Mg/0.5 Mg (3 Ml) Ud) 3 ml INH RQ6 [facility] Last Admin: 11/01/17 08:48 Dose: 3 ml Bisoprolol Fumarate (Zebeta) 5 mg PO BID [facility] Last Admin: 11/01/17 10:18 Dose: 5 mg Enoxaparin Sodium (Lovenox) 40 mg SC DAILY [facility] Last Admin: 10/29/17 09:52 Dose: 40 mg Fluticasone Propionate (Flonase) 1 spr AIDEN DAILY [facility] Last Admin: 11/01/17 10:17 Dose: 1 spray Glimepiride (Amaryl) 4 mg PO BID [facility] Last Admin: 11/01/17 10:16 Dose: 4 mg Hydralazine HCl (Apresoline) 50 mg PO BID [facility] Last Admin: 11/01/17 10:16 Dose: 50 mg Hydrochlorothiazide (Microzide) 12.5 mg PO DAILY [facility] Last Admin: 11/01/17 10:17 Dose: 12.5 mg Losartan Potassium (Cozaar) 50 mg PO DAILY [facility] Last Admin: 11/01/17 10:16 Dose: 50 mg Pantoprazole Sodium (Protonix Inj) 40 mg IVP DAILY [facility] Last Admin: 11/01/17 10:19 Dose: 40 mg Rosuvastatin Calcium (Crestor) 10 mg PO HS [facility] Last Admin: 10/31/17 21:27 Dose: 10 mg Sitagliptin Phosphate (Januvia) 100 mg PO DAILY [facility] Last Admin: 11/01/17 10:17 Dose: 100 mg Tamsulosin HCl (Flomax) 0.4 mg PO DAILY [facility] Last Admin: 11/01/17 10:17 Dose: 0.4 mg Tiotropium [facility] (Spiriva) 18 mcg INH RQ24 [facility] Last Admin: 11/01/17 08:48 Dose: Not Given - Labs Labs: 10/30/17 06:38 10/30/17 06:38 PT 12.0 SECONDS (9.7-12.2) 10/30/17 06:38 INR 1.1 10/30/17 06:38 APTT 34 SECONDS (21-34) 10/30/17 06:38 - Head Exam Head Exam: ATRAUMATIC - Eye Exam Eye Exam: Normal appearance - ENT Exam ENT Exam: Mucous Membranes Dry - Respiratory Exam Respiratory Exam: NORMAL BREATHING PATTERN - Cardiovascular Exam Cardiovascular Exam: +S1, +S2 - GI/Abdominal Exam GI & Abdominal Exam: Normal Bowel Sounds Assessment and Plan (1) Lung mass Assessment & Plan: s/p biopsy L5 lytic lesion suggestive of metastasis if confirmed malignancy outpatient f/u Status: Acute
--- NOTE | 2017-11-01 15:06 | CP.PCM.PN ---
Subjective - Date & Time of Evaluation Date of Evaluation: 11/01/17 Time of Evaluation: 10:00 - Subjective Subjective: Patient seen and examined at bedside. The patient feels better and would like to go home. The patient's lung biopsy yesterday was uncomplicated. Clear for discharge from pulmonary standpoint. Assessment and Plan: 1. Rt Lung mass, probable neoplasm - Chest CT 10/27: Spiculated 2.8 x 3 x 2.2 cm mass right lower lobe highly suspicious for primary neoplasm of the lung. Lytic lesion T5 vertebral body suspicious for osseous metastatic disease. - CXR 10/27: Focal somewhat masslike consolidatioon at the Rt lung base which may represent focal inflitrate. Mild venous congestion. Question trace left pelural effusion with mild left basilar consolidative changes. Mild cardiomegaly , - lung biopsy done yesterday, results pending - Dr. Gallo suggests outpatient work-up 2. Chest pain assoc with SOB 2/2 GERD - protonix - Dr. Irvin on-board 3. Sleep Apnea - O2 Sat% 95-97 on RA - recommend sleep study and breathing test as outpatient Objective - Vital Signs/Intake and Output Vital Signs (last 24 hours): Temp Pulse Resp BP Pulse Ox 98.3 F 59 L 20 145/84 95 11/01/17 08:42 11/01/17 08:42 11/01/17 08:42 11/01/17 08:42 11/01/17 08:42 Intake and Output: 11/01/17 11/01/17 06:59 18:59 Intake Total 400 Balance 400 - Medications Medications: Current Medications Albuterol/Ipratropium (Duoneb 3 Mg/0.5 Mg (3 Ml) Ud) 3 ml INH RQ6 [facility] Last Admin: 11/01/17 13:14 Dose: 3 ml Bisoprolol Fumarate (Zebeta) 5 mg PO BID [facility] Last Admin: 11/01/17 10:18 Dose: 5 mg Enoxaparin Sodium (Lovenox) 40 mg SC DAILY [facility] Last Admin: 10/29/17 09:52 Dose: 40 mg Fluticasone Propionate (Flonase) 1 spr AIDEN DAILY [facility] Last Admin: 11/01/17 10:17 Dose: 1 spray Glimepiride (Amaryl) 4 mg PO BID [facility] Last Admin: 11/01/17 10:16 Dose: 4 mg Hydralazine HCl (Apresoline) 50 mg PO BID [facility] Last Admin: 11/01/17 10:16 Dose: 50 mg Hydrochlorothiazide (Microzide) 12.5 mg PO DAILY [facility] Last Admin: 11/01/17 10:17 Dose: 12.5 mg Losartan Potassium (Cozaar) 50 mg PO DAILY [facility] Last Admin: 11/01/17 10:16 Dose: 50 mg Pantoprazole Sodium (Protonix Inj) 40 mg IVP DAILY [facility] Last Admin: 11/01/17 10:19 Dose: 40 mg Rosuvastatin Calcium (Crestor) 10 mg PO HS [facility] Last Admin: 10/31/17 21:27 Dose: 10 mg Sitagliptin Phosphate (Januvia) 100 mg PO DAILY [facility] Last Admin: 11/01/17 10:17 Dose: 100 mg Tamsulosin HCl (Flomax) 0.4 mg PO DAILY [facility] Last Admin: 11/01/17 10:17 Dose: 0.4 mg Tiotropium [place] (Spiriva) 18 mcg INH RQ24 [facility] Last Admin: 11/01/17 08:48 Dose: Not Given - Labs Labs: 10/30/17 06:38 10/30/17 06:38 PT 12.0 SECONDS (9.7-12.2) 10/30/17 06:38 INR 1.1 10/30/17 06:38 APTT 34 SECONDS (21-34) 10/30/17 06:38
--- NOTE | 2017-11-01 18:10 | PN ---
DATE: 11/01/2017 SUBJECTIVE: The patient denies any chest pain or shortness of breath today. PHYSICAL EXAMINATION: VITAL SIGNS: Blood pressure 145/84, heart rate 59, temperature 98.3, respirations 20. HEENT: Normocephalic. CHEST: Diminished breath sounds over the bases. HEART: S1 and S2, regular and distant. EXTREMITIES: Trace leg edema. LABORATORY DATA: Today's blood sugar is 102 and 92 respectively. The preliminary report of venous Doppler of lower extremity, no DVT's, official report is still pending. The patient was evaluated by Dr. Gallo, key operator yesterday. RECOMMENDATIONS: Outpatient followup of biopsy and outpatient PET CT scan and brain MRI to obtain baseline staging. ASSESSMENT: 1. Atypical chest pain, myocardial infarction is ruled out. 2. Right lower lobe lung mass with possible spinal metastasis. 3. Morbid obesity. 4. Chronic obstructive lung disease. 5. Hypertension. RECOMMENDATIONS: Continue current Zebeta, IV Protonix, hydrochlorothiazide, subcutaneous Lovenox, albuterol, Crestor, Cozaar, hydralazine, and Amaryl. The case was discussed with . No increased cardiac workup is justified at this time. Lopez Daniels MD
--- NOTE | 2017-11-01 19:10 | CARD ---
APPROVED REPORT Protocol: LUTHER Test Type: Treadmill Stress Test Test Indications: CHEST PAIN,SOB Medications: LIST SCAN Medical History: CHEST PAIN,SHORTNESS OF BREATH Target HR: 159 bpm Resting ECG: normal Resting Heart Rate: 75 bpm Resting Blood Pressure: 144/86mmHg submaximum (85%): 135 bpm TEST SUMMARY [id number]. EXERCISESTAGE [id number]. [id number]. POST EXERCISE Reason for Termination: Dyspnea Target HR: No Max HR: 115 bpm 72% of Maximum Predicted HR: 159 bpm Exercise duration: 03:00 min:sec, 1 Stage Exercise capacity: 4.6METs Max Blood Pressure: 214/98mmHg Blood Pressure response to exercise: resting hypertension - exaggerated response Heart Rate response to exercise: appropriate Chest Pain: No, none Angina index: 0 Arrhythmia: Yes, ventricular premature beats-isolated ST Change: No, none Deviation: 0 mm INTERPRETATION Stress EKG Conclusion: Nondiagnostic stress test
--- NOTE | 2017-11-02 01:14 | PN ---
DATE: 11/01/2017 DAILY PROGRESS NOTE SUBJECTIVE: Patient is seen today, 11/01/2017. He still has some right-sided chest pain. The patient was seen by both Gastroenterology and Hematology/Oncology. OBJECTIVE: VITAL SIGNS: Blood pressure 144/76, temperature 98.6, respiratory rate 20, and pulse 70. HEENT: Pupils equal, reactive to light. Normal-appearing mucosa of the conjunctivae, oropharynx and nasal membrane mucosa. NECK: Supple. No JVD. No carotid bruit. No lymph node. No thyromegaly. CHEST AND LUNGS: Bilateral symmetrical expansion. Good air exchange. No rales, no rhonchi. CARDIOVASCULAR SYSTEM: PMI not localized. S1, S2. No additional sounds. ABDOMEN: Normoactive bowel sounds. No tenderness. No organomegaly. No masses. EXTREMITIES: No cyanosis, no clubbing, no edema. METAL PLATER: Alert, awake, oriented x2. No neurological deficit could be appreciated. ASSESSMENT: 1. Chest pain, myocardial infarction was ruled out and stress test was negative for ischemia and patient reached to 70% of heart rates. 2. Hypertension. 3. Type 2 diabetes mellitus. 4. Right lung mass with lytic lesion on T5. 5. Severe gastroesophageal reflux disease. PLAN: Discussed patient's condition with Gastroenterology. We will plan to do an EGD in the morning. Lucero Leonard MD
[2017-11-02] MEDS: Albuterol-Ipratrop 3 mg / 0.5 (3 ml) UD INH SCH ×2 (01:27→07:10)
[2017-11-02] MEDS: Tiotropium 18 mcg Cap For Inhalation INH SCH (07:10)
[2017-11-02] MEDS ORDERED: Pneumococcal 23-Valent Vaccine IM ONE (10:00)
[2017-11-02] MEDS ORDERED: Fluticasone Nasal 50 mcg/Spray NAS SCH (10:00)
[2017-11-02] MEDS: Fluticasone Nasal 50 mcg/Spray NAS SCH (10:39)
[2017-11-02] MEDS ORDERED: Propofol 10 mg/ml Inj (20 ML) ONE (10:52)
--- NOTE | 2017-11-02 10:59 | VASCLAB ---
PROCEDURE: Lower Extremity Venous Duplex Exam. HISTORY: r/o DVT PRIORS: None. TECHNIQUE: Bilateral common femoral, femoral, popliteal and posterior tibial, peroneal and great saphenous veins were evaluated. Flow was assessed with color Doppler, compressibility, assessment of phasic flow and augmentation response. Report prepared by Nacho Bell, ANNIE, RVT FINDINGS: RIGHT: 1. Common Femoral Vein: 1.1. Compressibility - Fully compressible: Thrombus - None : Flow - Phasic: Augmentation -Normal: Reflux - None. 2. Femoral Vein: 2.1. Compressibility - Fully compressible: Thrombus - None : Flow - Phasic: Augmentation -Normal: Reflux - None. 3. Popliteal Vein: 3.1. Compressibility - Fully compressible: Thrombus - None : Flow - Phasic: Augmentation -Normal: Reflux - None. 4. Posterior Tibial Vein: 4.1. Compressibility - Fully compressible: Thrombus - None: Flow - Phasic: Augmentation -Normal: Reflux - None. 5. Peroneal Vein: 5.1. Compressibility - Fully compressible: Thrombus - None: Flow - Phasic: Augmentation -Normal: Reflux - None. 6. Great Saphenous Vein: 6.1. Compressibility - Fully compressible: Thrombus - None: Flow - Phasic: Augmentation - Normal: Reflux - None. LEFT: 1. Common Femoral Vein: 1.1. Compressibility - Fully compressible: Thrombus - None: Flow - Phasic: Augmentation -Normal: Reflux - None. 2. Femoral Vein: 2.1. Compressibility - Fully compressible: Thrombus - None: Flow - Phasic: Augmentation -Normal: Reflux - None. 3. Popliteal Vein: 3.1. Compressibility - Fully compressible: Thrombus - None : Flow - Phasic: Augmentation -Normal: Reflux - None. 4. Posterior Tibial Vein: 4.1. Compressibility - Fully compressible: Thrombus - None: Flow - Phasic: Augmentation -Normal: Reflux - None. 5. Peroneal Vein: 5.1. Compressibility - Fully compressible: Thrombus - None: Flow - Phasic: Augmentation -Normal: Reflux - None. 6. Great Saphenous Vein: 6.1. Compressibility - Fully compressible: Thrombus - None: Flow - Phasic: Augmentation - Normal: Reflux - None. OTHER FINDINGS: Right: None significant. Left: None significant. IMPRESSION: Right: No evidence of deep or superficial vein thrombosis of the right lower extremity. Normal valve function noted of the right side. Left: No evidence of deep or superficial vein thrombosis of the left lower extremity. Normal valve function noted of the left side.
[2017-11-02 11:47] VITALS: O2SAT 98
[2017-11-02 12:06] VITALS: BP 137/86; PULSE 95; RESP 16; TEMP 98
--- NOTE | 2017-11-02 22:18 | CP.PCM.PN ---
Subjective - Date & Time of Evaluation Date of Evaluation: 11/02/17 Time of Evaluation: 12:00 - Subjective Subjective: No complaints. Objective - Vital Signs/Intake and Output Vital Signs (last 24 hours): Temp Pulse Resp BP Pulse Ox 98 F 95 H 16 137/86 98 11/02/17 12:00 11/02/17 12:00 11/02/17 12:00 11/02/17 12:00 11/02/17 12:00 Intake and Output: 11/02/17 11/03/17 18:59 06:59 Intake Total 300 Balance 300 - Labs Labs: 10/30/17 06:38 10/30/17 06:38 PT 12.0 SECONDS (9.7-12.2) 10/30/17 06:38 INR 1.1 10/30/17 06:38 APTT 34 SECONDS (21-34) 10/30/17 06:38 - Head Exam Head Exam: ATRAUMATIC - Eye Exam Eye Exam: Normal appearance - ENT Exam ENT Exam: Mucous Membranes Dry - Respiratory Exam Respiratory Exam: NORMAL BREATHING PATTERN - Cardiovascular Exam Cardiovascular Exam: +S1, +S2 - GI/Abdominal Exam GI & Abdominal Exam: Normal Bowel Sounds - Extremities Exam Extremities Exam: Normal Inspection Assessment and Plan (1) Lung mass Assessment & Plan: discussed with pathology; prelim NSCLC adenocarcinoma outpatient PET CT scan and MRI to complete staging L5 lytic lesion concerning for metastasis Status: Acute
--- NOTE | 2017-11-04 08:02 | DS ---
REASON FOR ADMISSION: This is a 62-year-old male with history of multiple medical problems who was admitted through emergency room for chest pain. COURSE OF HOSPITALIZATION: The patient was evaluated in the emergency room and admitted for chest pain. Myocardial infarction was ruled out. The patient's chest x-ray showed right lung mass and CAT scan was done that showed lytic lesion on T5. The patient had also symptoms of gastroesophageal reflux disease. The patient had in this admission, consultation with cardiology, gastroenterology, pulmonary, and hematology/oncology. The patient had a CT-guided biopsy of the right lung mass that showed adenocarcinoma. The patient also had an EGD that showed some esophagitis and gastritis. The patient was discharged home, and he was to follow with Dr. Angelo Gallo the following day for further investigating and staging the lung cancer and deciding treatment. The patient was discharged in asymptomatic condition to continue his preadmission medications. FINAL DIAGNOSES: 1. Adenocarcinoma of the lung. 2. Gastroesophageal reflux disease. 3. Hypertension. 4. Type 2 diabetes mellitus. 5. Morbid obesity. 6. Smoker. Lucero Leonard MD
--- NOTE | 2017-11-06 10:59 | CARD ---
APPROVED REPORT EKG Measurement Heart [id number] <Conclusion> Normal sinus rhythm Normal ECG
== END 2017-11-02 14:05 | disposition home or self-care (01) | DRG 181 ==
LOC: C.ER 10:23 → C.9E 11:57 → C.6T 12:48 → OBSVTOIN 10-29 11:57
PROVIDERS: ADMIT Internal Medicine; ATTEND Internal Medicine
PROC: 0BBK3ZX Excision of Right Lung, Percutaneous Approach, Diagnostic (ICD-10-PCS; principal; 2017-10-31)
PROC: BB24ZZZ Computerized Tomography (CT Scan) of Bilateral Lungs (ICD-10-PCS; 2017-10-31)
PROC: 0DB58ZX Excision of Esophagus, Via Natural or Artificial Opening Endoscopic, Diagnostic (ICD-10-PCS; 2017-11-02)
PROC: 0DB68ZX Excision of Stomach, Via Natural or Artificial Opening Endoscopic, Diagnostic (ICD-10-PCS; 2017-11-02)
DX: C34.31 Malignant neoplasm of lower lobe, right bronchus or lung (principal); C79.51 Secondary malignant neoplasm of bone; J90 Pleural effusion, not elsewhere classified; Z68.41 Body mass index [BMI] 40.0-44.9, adult; K21.9 Gastro-esophageal reflux disease without esophagitis; K31.7 Polyp of stomach and duodenum; E66.01 Morbid (severe) obesity due to excess calories; E11.65 Type 2 diabetes mellitus with hyperglycemia; I10 Essential (primary) hypertension; J44.9 Chronic obstructive pulmonary disease, unspecified; I51.7 Cardiomegaly; K63.5 Polyp of colon; G47.30 Sleep apnea, unspecified; F17.210 Nicotine dependence, cigarettes, uncomplicated

== ENCOUNTER 2018-02-16 11:20 | Inpatient (IN) | payer OTHER ==
--- NOTE | 2018-02-16 11:38 | C.PDOC ---
History Of Present Illness 63 y/o male with history of HTN and DM presents to ED with c/o cellulitis of left lower leg which has been present for the past few days. Patient states that he was referred to the ER by his PMD, . Denies having fever and chills. Of note, patient states that he has history of lung cancer and he is undergoing chemotherapy treatment with . Time Seen by Provider: 02/16/18 11:35 Chief Complaint (Nursing): Abnormal Skin Integrity History Per: Patient History/Exam Limitations: no limitations Onset/Duration Of Symptoms: Days Current Symptoms Are (Timing): Still Present Severity: Moderate Past Medical History Reviewed: Historical Data, Nursing Documentation, Vital Signs Vital Signs: Last Vital Signs Temp 99.0 F 02/16/18 11:29 Pulse 100 H 02/16/18 11:29 Resp 20 02/16/18 11:29 BP 131/81 02/16/18 11:29 Pulse Ox 97 02/16/18 12:21 - Medical History PMH: HTN Surgical History: No Surg Hx - [facility] Procedures COMPUTERIZED TOMOGRAPHY (CT SCAN) OF BILATERAL LUNGS (10/29/17) EXCISION OF ESOPHAGUS, ENDO, DIAGN (10/29/17) EXCISION OF RIGHT LUNG, PERCUTANEOUS APPROACH, DIAGNOSTIC (10/29/17) EXCISION OF STOMACH, ENDO, DIAGN (10/29/17) OTHER LOCAL DESTRUC SKIN (11/08/13) Family History: States: No Known Family Hx - Social History Hx Alcohol Use: No Hx Substance Use: No - Immunization History Hx Tetanus Toxoid Vaccination: No Hx Influenza Vaccination: No Hx Pneumococcal Vaccination: No Review Of Systems Except As Marked, All Systems Reviewed And Found Negative. Constitutional: Negative for: Fever, Chills Skin: Positive for: Other (cellulitis to left lower leg) Physical Exam - Physical Exam Appears: Non-toxic, No Acute Distress, Other (morbidly obese) Skin: Normal Color, Warm, Dry, Other (distal anterior tibial region of left leg : bright blanching erythema, circumferential, extends to ankle, tactile warmth left foot: hyperkeratosis and scaling) Head: Atraumatic, Normacephalic Eye(s): bilateral: Normal Inspection Nose: Normal Oral Mucosa: Moist Neck: Supple Chest: Symmetrical Cardiovascular: Rhythm Regular Respiratory: Normal Breath Sounds, No Rales, No Rhonchi, No Wheezing Extremity: Normal ROM, Other (bilateral pedal edema) Neurological/Psych: Oriented x3, Normal Speech ED Course And Treatment - Laboratory Results Result Diagrams: 02/16/18 12:00 02/16/18 12:00 O2 Sat by Pulse Oximetry: 97 (RA) Pulse Ox Interpretation: Normal Medical Decision Making Medical Decision Making: Impression: Cellulitis Plan: * Labs * UA * Zosyn IV * Vancomycin IV Progress: Labs reviewed. [id number] Leonard for admission. He requests Vanco IV and to consult ID Dr Auguste Disposition Counseled Patient/Family Regarding: Diagnosis - Disposition Disposition: HOSPITALIZED Disposition Time: 12:40 Condition: STABLE - POA Present On Arrival: None - Clinical Impression Clinical Impression: Cellulitis of left leg - PA / [employer] STATISTICAL PROGRAMMER / Resident Statement MD/DO has reviewed & agrees with the documentation as recorded. - Scribe Statement The provider has reviewed the documentation as recorded by the Chloee Jimbo Swan Provider Attestation All medical record entries made by the Scribe were at my direction and personally dictated by me. I have reviewed the chart and agree that the record accurately reflects my personal performance of the history, physical exam, medical decision making, and the department course for this patient. I have also personally directed, reviewed, and agree with the discharge instructions and disposition. Decision To Admit - Pt Status Changed To: Hospital Disposition Of: Inpatient - Admit Certification Admit to Inpatient:: After my assessment, the patient will require hospitalization for at least two midnights. This is because of the severity of symptoms shown, intensity of services needed, and/or the medical risk in this patient being treated as an outpatient. - InPatient: Physician Admission Certification: I certify that this patient requires 2 or more midnights of care for the following reason:: Patient with cellulitis of left lower extremity, not improving with oral antibiotics and area is worsening. Patient needs IV antibiotics. Will consult ID - . Bed Request Type: Regular Admitting Physician: Lucero Leonard Patient Diagnosis: Cellulitis of left leg
[2018-02-16] MEDS ORDERED: Vancomycin 1 gm/NS 200 ml 1 GM/200 ML BAG IVPB STA (11:57)
[2018-02-16] MEDS ORDERED: Piperacill/Tazo 3.375gm in Dex 3.375 GM/50 ML BAG IVPB STA (11:57)
[2018-02-16 12:03] LABS: BASO # 0.1 K/uL (0.0-0.2); BASO % 0.7 % (0.0-2.0); EOS # 0.1 K/uL (0.0-0.7); EOS % 0.6 % (0.0-4.0); HEMOGLOBIN 13.6 g/dL (12.0-18.0); LYMPH # 1.1 K/uL (1.0-4.3); LYMPH % 8.7 % (20.0-40.0); MEAN CORPUSCULAR HEMOGLOBIN 32.9 pg (27.0-31.0); MEAN CORPUSCULAR HGB CONC 34.9 g/dL (33.0-37.0); MEAN PLATELET VOLUME 8.9 fL (7.2-11.7); MONO # 1.6 K/uL (0.0-0.8); MONO % 12.7 % (0.0-10.0); NEUT # 9.9 K/uL (1.8-7.0); NEUT % 77.3 % (50.0-75.0); PLATELET COUNT 261 K/uL (130-400); RBC 4.14 Mil/uL (4.40-5.90); RED CELL DISTRIBUTION WIDTH 17.2 % (11.5-14.5)
[2018-02-16 12:06] LABS: MEAN CELL VOLUME 94.2 fL (80.0-94.0); WHITE BLOOD COUNT 12.8 K/uL (4.8-10.8)
[2018-02-16 12:13] LABS: INR 1.3; PROTHROMBIN TIME 13.9 SECONDS (9.7-12.2)
[2018-02-16 12:16] LABS: ALB/GLOB RATIO 1.1 (1.0-2.1); ALBUMIN 4.2 g/dL (3.5-5.0); ALT/SGPT 39 U/L (21-72); AST/SGOT 29 U/L (17-59); BLOOD UREA NITROGEN 11 mg/dL (9-20); CALCIUM 9.3 mg/dl (8.6-10.4); GFR NON-AFRICAN AMERICAN > 60
[2018-02-16] MEDS ORDERED: Piperacillin/Tazobact 3.375 gm 100 ML IVPB ONE (12:18)
[2018-02-16 12:24] LABS: LYMPHOCYTE 12 % (20-40); MONOCYTE 12 % (0-10); NEUTROPHIL 76 % (50-75); PLATELET ESTIMATE NORMAL (NORMAL); TOTAL CELLS COUNTED 100
[2018-02-16 12:25] LABS: B-TYPE NATRIURETIC PEPTIDE 50.9 pg/mL (0-900)
[2018-02-16 12:43] LABS: SQUAMOUS EPITHIAL 2 /hpf (0-5); URINE BILIRUBIN NEGATIVE (NEGATIVE); URINE BLOOD NEGATIVE (NEGATIVE); URINE CLARITY Clear (Clear); URINE COLOR Yellow (YELLOW); URINE GLUCOSE (UA) NORMAL (Normal); URINE LEUKOCYTE ESTERASE NEG Leu/uL (Negative); URINE PROTEIN NEGATIVE (NEGATIVE); URINE UROBILINOGEN NORMAL mg/dL (0.2-1.0)
[2018-02-16] MEDS ORDERED: oxyCODONE 5 mg Immediate Release Tab PO PRN (17:43)
--- NOTE | 2018-02-16 19:51 | CP.PCM.CON ---
History of Present Illness - History of Present Illness History of Present Illness: INFECTIOUS DISEASE CONSULT; HPI; 63-year-old male with history of hypertension, DM, GERD who presented to [facility] ER because of cellulitis of the left lower leg which has been present for past few days. Patient states he was referred to the ER by his private Humaira Leonard. Patient states he was given some by mouth antibiotics for 10 days by his oncologist for cellulitis but it failed to improve. So he is referred to ER for further evaluation. Patient gives history of NSCLC- CA of the LUNG diagnosed in September 2017. Patient states he had a biopsy which came back positive for lung CA and also IMAGING SHOWED L5 lytic lesion at that time. Patient presently on chemotherapy as per his oncologist Dr. LABOY and last dose given was on January 30, 2018. PATIENT DENIES ANY FEVER OR CHILLS.DENIES ANY COUGH OR CHEST PAIN AT PRESENT. INFECTIOUS DISEASE CONSULT REQUESTED BY PMD FOR CELLULITIS LEFT LOWER EXTREMITY NON-RESOLVING WITH OUTPATIENT THERAPY. Past medical history: tobacco abuse, HTN, DM, GERD,MORBID OBESITY. Past surgical history: Neck and knee surgery Family history: Mother had cervical cancer Social history: 1/2ppd x 40 years, denies alcohol, and illicit drug use.PATIENT STATES HE HAS QUIT SMOKING SINCE LAST 3 MONTHS. Allergies: NKA Review of Systems - Constitutional Constitutional: absent: Chills, Fever - EENT Eyes: absent: Change in Vision, Floaters Ears: absent: Ear Pain, Dizziness Nose/Mouth/Throat: absent: Dry Mouth, Dysphagia, Odynophagia - Cardiovascular Cardiovascular: Dyspnea on Exertion, Pedal Edema. absent: Chest Pain, Dyspnea, Palpitations - Respiratory Respiratory: absent: Cough, Hemoptysis - Gastrointestinal Gastrointestinal: absent: Abdominal Pain, Constipation, Loose Stools, Nausea, Odynophagia, Vomiting - Genitourinary Genitourinary: absent: Change in Urinary Stream, Dysuria, Freq UTI - Integumentary Integumentary: Dry Skin, Pruritus, Rash (SCALY RASH BOTH ELBOWS, ANTERIOR KNEES AND KNUCKLES OF THE HAND ? PSORIASIS..) - Psychiatric Psychiatric: absent: Depression - Hematologic/Lymphatic Hematologic: As Per HPI. absent: Lymphadenopathy Past Patient History - Past Medical History & Family History Past Medical History?: Yes - Past Social History Smoking Status: Former Smoker - CARDIAC Hx Hypertension: Yes - PULMONARY Hx Respiratory Disorders: No - NEUROLOGICAL Hx Neurological Disorder: No - HEENT Hx HEENT Problems: Yes Other/Comment: poor visio - RENAL Hx Chronic Kidney Disease: No - ENDOCRINE/METABOLIC Hx Endocrine Disorders: Yes Hx Diabetes Mellitus Type 2: Yes (diet controlled) - HEMATOLOGICAL/ONCOLOGICAL Hx Blood Disorders: No - INTEGUMENTARY Hx Dermatological Problems: Yes Other/Comment: athlete's foot - MUSCULOSKELETAL/RHEUMATOLOGICAL Hx Falls: No - GASTROINTESTINAL Hx Gastrointestinal Disorders: Yes Hx Constipation: Yes Hx Gastroesophageal Reflux: Yes Other/Comment: Acid reflux - GENITOURINARY/GYNECOLOGICAL Hx Genitourinary Disorders: Yes Hx Prostate Problems: Yes - PSYCHIATRIC Hx Substance Use: No - SURGICAL HISTORY Hx Surgeries: Yes Other/Comment: cyst removed from neck, Lt. knee surgery; L 5th digit tendon repair,lung bx - ANESTHESIA Hx Anesthesia: Yes Hx Anesthesia Reactions: Yes (nausea,vomitting) Meds Allergies/Adverse Reactions: Allergies Allergy/AdvReac Type Severity Reaction Status Date / Time No Known Allergies Allergy Verified 02/16/18 11:33 - Medications Medications: Current Medications Aspirin (Ecotrin) 81 mg PO DAILY [facility] Bisoprolol Fumarate (Zebeta) 5 mg PO BID [facility] Enoxaparin Sodium (Lovenox) 40 mg SC DAILY [facility] Folic Acid (Folic Acid) 1 mg PO DAILY [facility] Hydralazine HCl (Apresoline) 50 mg PO BID [facility] Hydrochlorothiazide (Microzide) 12.5 mg PO BID [facility] Insulin Aspart (Novolog) 0 unit SC ACHS [facility] PRN Reason: Protocol Losartan Potassium (Cozaar) 50 mg PO BID [facility] Ondansetron HCl (Zofran Tab) 4 mg PO Q6H PRN PRN Reason: Nausea/Vomiting Oxycodone HCl (Oxycodone Immediate Release Tab) 5 mg PO Q6H PRN PRN Reason: Pain, moderate (4-7) Pantoprazole Sodium (Protonix Ec Tab) 40 mg PO DAILY [facility] Rosuvastatin Calcium (Crestor) 10 mg PO HS [facility] Tamsulosin HCl (Flomax) 0.4 mg PO BID [facility] Physical Exam - Constitutional Appears: No Acute Distress - Head Exam Head Exam: NORMAL INSPECTION - Eye Exam Eye Exam: EOMI, PERRL - ENT Exam ENT Exam: Normal Oropharynx - Neck Exam Neck exam: Positive for: Normal Inspection - Respiratory Exam Respiratory Exam: Clear to Auscultation Bilateral, NORMAL BREATHING PATTERN - Cardiovascular Exam Cardiovascular Exam: REGULAR RHYTHM, +S1, +S2 - GI/Abdominal Exam GI & Abdominal Exam: Normal Bowel Sounds, Soft. absent: Organomegaly - Extremities Exam Extremities exam: Positive for: normal capillary refill (LOCALIZED CELLULITIS ANTERIOR ZAMUDIO LOWER EXTREMITY WITH RAISED MARGINS, ERYTHEMA AND WARMTH.), pedal edema (2+ BILATERAL LOWER EXTREMITY.), pedal pulses present. Negative for: calf tenderness Additional comments: ONYCHOMYCOSIS OF THE NAILS BILATERAL FEET. - Neurological Exam Neurological exam: Alert, CN II-XII Intact, Normal Gait, Oriented x3, Reflexes Normal - Psychiatric Exam Psychiatric exam: Normal Mood - Skin Skin Exam: Normal Color, Rash (BILATERAL ELBOWS AND KNUCKLES OF THE HAND.), Warm Results - Vital Signs Recent Vital Signs: Last Vital Signs Temp 98.6 F 02/16/18 15:05 Pulse 87 02/16/18 15:05 Resp 20 02/16/18 15:05 BP 109/74 02/16/18 15:05 Pulse Ox 97 02/16/18 17:55 - Labs Result Diagrams: 02/16/18 12:00 02/16/18 12:00 Labs: Laboratory Results - last 24 hr 02/16/18 02/16/18 02/16/18 12:00 12:00 12:00 WBC 12.8 H D RBC 4.14 L Hgb 13.6 Hct 39.0 MCV 94.2 H D MCH 32.9 H MCHC 34.9 RDW 17.2 H Plt Count 261 MPV 8.9 Neut % (Auto) 77.3 H Lymph % (Auto) 8.7 L [place] % (Auto) 12.7 H Eos % (Auto) 0.6 Baso % (Auto) 0.7 Neut # (Auto) 9.9 H Lymph # (Auto) 1.1 [place] # (Auto) 1.6 H Eos # (Auto) 0.1 Baso # (Auto) 0.1 Neutrophils % (Manual) 76 H Lymphocytes % (Manual) 12 L Monocytes % (Manual) 12 H Platelet Estimate Normal PT 13.9 H INR 1.3 APTT 34 Sodium 141 Potassium 3.8 Chloride 101 Carbon Dioxide 30 Anion Gap 14 BUN 11 Creatinine 0.8 Est GFR ( Amer) > 60 Est GFR (Non-Af Amer) > 60 Random Glucose 155 H Calcium 9.3 Total Bilirubin 1.0 AST 29 ALT 39 Alkaline Phosphatase 85 NT-Pro-B Natriuret Pep 50.9 Total Protein 8.1 Albumin 4.2 Globulin 3.9 Albumin/Globulin Ratio 1.1 Urine Color Urine Clarity Urine pH Ur Specific [place] Urine Protein Urine Glucose (UA) Urine Ketones Urine Blood Urine Nitrate Urine Bilirubin Urine Urobilinogen Ur Leukocyte Esterase Urine WBC (Auto) Urine RBC (Auto) Ur Squamous Epith Cells 02/16/18 12:34 WBC RBC Hgb Hct MCV MCH MCHC RDW Plt Count MPV Neut % (Auto) Lymph % (Auto) [place] % (Auto) Eos % (Auto) Baso % (Auto) Neut # (Auto) Lymph # (Auto) [place] # (Auto) Eos # (Auto) Baso # (Auto) Neutrophils % (Manual) Lymphocytes % (Manual) Monocytes % (Manual) Platelet Estimate PT INR APTT Sodium Potassium Chloride Carbon Dioxide Anion Gap BUN Creatinine Est GFR ( Amer) Est GFR (Non-Af Amer) Random Glucose Calcium Total Bilirubin AST ALT Alkaline Phosphatase NT-Pro-B Natriuret Pep Total Protein Albumin Globulin Albumin/Globulin Ratio Urine Color Yellow Urine Clarity Clear Urine pH 5.0 Ur Specific [place] 1.020 Urine Protein Negative Urine Glucose (UA) Normal Urine Ketones Negative Urine Blood Negative Urine Nitrate Negative Urine Bilirubin Negative Urine Urobilinogen Normal Ur Leukocyte Esterase Neg Urine WBC (Auto) 2 Urine RBC (Auto) 1 Ur Squamous Epith Cells 2 Assessment & Plan (1) Cellulitis of left leg Assessment and Plan: pancultures ESR CRP. MRSA SCREEN. CONTINUE iv zOSYN 3.375 EVERY 8 HOURLY 02/16/18. CONTINUE iv VANCOMYCIN 1 G EVERY 12 HOURLY. 02/16/18. fOLLOW-UP vANCO TROUGH PRIOR TO THE FOURTH DOSE AND KEEP BETWEEN 10 AND 20. F/U RENAL FUNCTIONS CLOSELY. WILL FOLLOW ALONG WITH YOU NEEDED. Status: Acute (2) Non-small cell lung cancer (NSCLC) Assessment and Plan: patient on chemotherapy for lung cancer. . Last chemotherapy dose on January 30, 2018. Status: Acute (3) Diabetes mellitus Status: Acute (4) HTN (hypertension) Status: Acute (5) Obesity, morbid Status: Acute
[2018-02-16] MEDS: Pantoprazole 40 mg EC Tab PO SCH (20:03)
[2018-02-16] MEDS: (Novolog) Insulin Aspart, Recombinant 100 u/ml 10 ml vial SC SCH (22:05)
[2018-02-17] MEDS: Piperacillin/Tazobact 3.375 GM in Sodium Chloride 100 ML IVPB SCH ×4 (01:30→23:45)
[2018-02-17] MEDS: Vancomycin 1 gm/NS 200 ml 1 GM/200 ML BAG IVPB SCH ×2 (02:10→12:50)
--- NOTE | 2018-02-17 05:21 | HP ---
Copied To: Lucero Leonard MD Attending MD: Lucero Leonard MD HISTORY OF PRESENT ILLNESS: This is a 63-year-old male with history of multiple medical problems, recently diagnosed with metastatic cancer of lung; was admitted through emergency room for cellulitis of the left lower extremity that did not respond to outpatient treatment. The patient was seen in my office two days ago, and he was already on Augmentin 875 twice a day that was given by oncologist a week earlier. Pain and redness did not improve. The patient has been on chemotherapy every 3 weeks for metastatic cancer of lung. The patient had symptoms of shivering and pain on the left lower extremity. He denied any trauma. Other review of systems is negative. ALLERGIES: NO KNOWN ALLERGY. MEDICATIONS: Medications were reviewed as per MAR. SOCIAL HISTORY: Positive for smoking. No EtOH or substance abuse. FAMILY HISTORY: Not contributory. PAST MEDICAL HISTORY: Type 2 diabetes mellitus, hypertension, metastatic cancer of lung. PHYSICAL EXAMINATION: GENERAL: The patient is in bed, not in any cardiopulmonary distress. VITAL SIGNS: Blood pressure 109/74, temperature 98.6, respiratory rate 20, and pulse 87. HEENT: Pupils equal, reactive to light. Normal-appearing mucosa of the conjunctivae, oropharynx, and nasal membrane mucosa. NECK: Supple. No JVD. No carotid bruit. No lymph node. No thyromegaly. CHEST AND LUNGS: Bilateral symmetrical expansion. Good air exchange. No rales, no rhonchi. CARDIOVASCULAR: PMI not localized. S1, S2. No additional sounds. ABDOMEN: Normoactive bowel sounds. No tenderness. No organomegaly. No masses. EXTREMITIES: No cyanosis, no clubbing, no edema. There is diffuse redness and tenderness of the left lower extremity from the ankle up to the mid tibia. SOAP BOILER: Alert, awake, oriented x3. No neurological deficit could be appreciated. ASSESSMENT: 1. Cellulitis of the left lower extremity that is not responding to outpatient therapy. 2. Metastatic cancer of lung, on chemotherapy. 3. Type 2 diabetes mellitus, uncontrolled. 4. Hypertension. 5. Smoker. PLAN: ID consult and follow recommendations regarding IV antibiotics and blood culture. Resume the patient's home medications. We will do Accu-Cheks with insulin coverage four times a day. Oncology consult. [facility] MD [facility] # [id number]
[2018-02-17 06:17] LABS: BASO % 0.2 % (0.0-2.0); EOS # 0.1 K/uL (0.0-0.7); EOS % 0.8 % (0.0-4.0); HEMOGLOBIN 12.9 g/dL (12.0-18.0); LYMPH # 0.8 K/uL (1.0-4.3); LYMPH % 6.6 % (20.0-40.0); MEAN CELL VOLUME 94.2 fL (80.0-94.0); MEAN CORPUSCULAR HEMOGLOBIN 32.9 pg (27.0-31.0); MEAN CORPUSCULAR HGB CONC 34.9 g/dL (33.0-37.0); MEAN PLATELET VOLUME 9.1 fL (7.2-11.7); MONO # 1.7 K/uL (0.0-0.8); MONO % 13.4 % (0.0-10.0); PLATELET COUNT 262 K/uL (130-400); RBC 3.92 Mil/uL (4.40-5.90); RED CELL DISTRIBUTION WIDTH 17.3 % (11.5-14.5); WHITE BLOOD COUNT 12.7 K/uL (4.8-10.8)
[2018-02-17 07:36] LABS: ALBUMIN 3.8 g/dL (3.5-5.0); ALT/SGPT 43 U/L (21-72); AST/SGOT 26 U/L (17-59); BILIRUBIN,DIRECT 0.5 mg/dL (0.0-0.4); BLOOD UREA NITROGEN 11 mg/dL (9-20); CALCIUM 8.9 mg/dl (8.6-10.4); GFR NON-AFRICAN AMERICAN > 60
[2018-02-17 07:56] LABS: BANDS 3 % (0-2); EOSINOPHIL 1 % (0-4); LYMPHOCYTE 15 % (20-40); MONOCYTE 11 % (0-10); NEUTROPHIL 70 % (50-75); PLATELET ESTIMATE NORMAL (NORMAL); TOTAL CELLS COUNTED 100
[2018-02-17] MEDS: (Novolog) Insulin Aspart, Recombinant 100 u/ml 10 ml vial SC SCH ×4 (08:05→23:08)
[2018-02-17 08:29] LABS: ERYTHROCYTE SEDIMENTATION RATE 50 mm/hr (0-15)
[2018-02-17] MEDS: Pantoprazole 40 mg EC Tab PO SCH (09:15)
[2018-02-17] MEDS: Enoxaparin 40 mg Syringe SC SCH (09:15)
[2018-02-17] MEDS ORDERED: Potassium Chloride 20 mEq ER Tab PO ONE (14:09)
--- NOTE | 2018-02-17 20:42 | CP.PCM.PN ---
Subjective - Date & Time of Evaluation Date of Evaluation: 02/17/18 Time of Evaluation: 20:42 - Subjective Subjective: CHIEF COMPLAINTS TODAY : AFEBRILE. states he vomited once. LT. LE CELLULITUS/AND EDEMA UNCHANGED ROS. HEENT : N. Resp : No cough, wheezing ,pleuritic CP ,or hemoptysis Cardio : No anginal CP, PND, orthopnea, palpitation GI : No abd.pain, n/v ,diarrhea or GI bleeding . CAR BODY INSPECTOR : No headache, vertigo, focal deficit. Musculoskel : No joint swelling , Derm : CELLULITIS LLE /EDEMA+VE Psych : Normal affect. Ext : No swelling ,calf pain PE. Pt. is alert awake in no distress. V.S As noted in the chart Head ,ear nose,throat and eyes : Normal. Neck : Supple with normal carotids. Lungs: Clear air entry. Heart : S1 & S2 normal with S4. No murmur. Abd : Soft non tender with normal bowel sounds. Neuro : Moves all ext. with no localized deficit. Ext :Non tender calves CELLULITIS LLE /EDEMA+VE Derm : No rashes or decubitus ulcer. LABS/RADIOLOGY: ALL NEGATIVE TO DATE MRSA screen negative. wbc 12.7/H/H 12.9 PLATELETS 262 CREATININE 0.8 bun OF 11. Objective - Vital Signs/Intake and Output Vital Signs (last 24 hours): Temp Pulse Resp BP Pulse Ox 99.2 F 92 H 20 130/74 95 02/17/18 15:00 02/17/18 15:00 02/17/18 15:00 02/17/18 15:00 02/17/18 15:00 Intake and Output: 02/17/18 02/18/18 18:59 06:59 Intake Total 600 Balance 600 - Medications Medications: Current Medications Aspirin (Ecotrin) 81 mg PO DAILY [facility] Last Admin: 02/17/18 09:15 Dose: 81 mg Bisoprolol Fumarate (Zebeta) 5 mg PO BID [facility] Last Admin: 02/17/18 18:17 Dose: 5 mg Enoxaparin Sodium (Lovenox) 40 mg SC DAILY [facility] Last Admin: 02/17/18 09:15 Dose: 40 mg Folic Acid (Folic Acid) 1 mg PO DAILY [facility] Last Admin: 02/17/18 09:15 Dose: 1 mg Hydralazine HCl (Apresoline) 50 mg PO BID [facility] Last Admin: 02/17/18 18:17 Dose: 50 mg Hydrochlorothiazide (Microzide) 12.5 mg PO BID [facility] Last Admin: 02/17/18 18:17 Dose: 12.5 mg Vancomycin/Sodium Chloride (Vancomycin 1 Gm/Ns 200 Ml) 1 gm in 200 mls @ 133 mls/hr IVPB Q12H [facility] PRN Reason: Protocol Stop: 02/22/18 00:01 Last Admin: 02/17/18 12:50 Dose: 133 mls/hr Piperacillin Sod/Tazobactam (Sod 3.375 gm/ Sodium Chloride) 100 mls @ 200 mls/ hr IVPB Q8H [facility] PRN Reason: Protocol Last Admin: 02/17/18 18:15 Dose: 200 mls/hr Insulin Aspart (Novolog) 0 unit SC ACHS [facility] PRN Reason: Protocol Last Admin: 02/17/18 20:13 Dose: Not Given Lactulose (Enulose) 20 gm PO Q4H [facility] Last Admin: 02/17/18 20:23 Dose: 20 gm Losartan Potassium (Cozaar) 50 mg PO BID [facility] Last Admin: 02/17/18 18:17 Dose: 50 mg Ondansetron HCl (Zofran Tab) 4 mg PO Q6H [facility]N PRN Reason: Nausea/Vomiting Oxycodone HCl (Oxycodone Immediate Release Tab) 5 mg PO Q6H PRN PRN Reason: Pain, moderate (4-7) Pantoprazole Sodium (Protonix Ec Tab) 40 mg PO DAILY [facility] Last Admin: 02/17/18 09:15 Dose: 40 mg Rosuvastatin Calcium (Crestor) 10 mg PO HS [facility] Last Admin: 02/16/18 22:05 Dose: 10 mg Tamsulosin HCl (Flomax) 0.4 mg PO BID [facility] Last Admin: 02/17/18 18:18 Dose: 0.4 mg - Labs Labs: 02/17/18 06:08 02/17/18 06:08 PT 13.9 SECONDS (9.7-12.2) H 02/16/18 12:00 INR 1.3 02/16/18 12:00 APTT 34 SECONDS (21-34) 02/16/18 12:00 Assessment and Plan (1) Cellulitis of left leg Assessment & Plan: CONTINUE iv zOSYN 3.375 EVERY 8 HOURLY 02/16/18. CONTINUE iv VANCOMYCIN 1 G EVERY 12 HOURLY. 02/16/18. ADD iv cleocin 300 mg IV piggyback every 6 hourly for now 02/17/18 fOLLOW-UP vANCO TROUGH PRIOR TO THE FOURTH DOSE AND KEEP BETWEEN 10 AND 20. F/U RENAL FUNCTIONS CLOSELY. Status: Acute (2) Non-small cell lung cancer (NSCLC) Status: Acute (3) Diabetes mellitus Status: Acute (4) HTN (hypertension) Status: Acute (5) Obesity, morbid Status: Acute
--- NOTE | 2018-02-17 20:46 | PN ---
Copied To: Lucero Leonard MD Attending MD: Lucero Leonard MD DATE: 02/17/2018 DAILY PROGRESS NOTE SUBJECTIVE: The patient is seen today, 02/17/2018. He is not in any cardiopulmonary distress. He still has redness in the left lower extremity. PHYSICAL EXAMINATION VITAL SIGNS: Blood pressure 130/74, temperature 99.2, respiratory rate 20, and pulse 92. HEENT: Pupils equal, reactive to light. Normal-appearing mucosa of the conjunctivae, oropharynx, and nasal membrane mucosa. NECK: Supple. No JVD. No carotid bruit. No lymph node. No thyromegaly. CHEST AND LUNGS: Bilateral symmetrical expansion. Good air exchange. No rales. No rhonchi. CARDIOVASCULAR: PMI not localized. S1, S2. No additional sounds. ABDOMEN: Normoactive bowel sounds. No tenderness. No organomegaly. No masses. EXTREMITIES: There is redness of the left lower extremity with tenderness. ELECTRICAL SOLDERER: Alert, awake, oriented x3. No neurological deficit could be appreciated. ASSESSMENT: Cellulitis of the left lower extremity, metastatic cancer of lung, hypertension, type 2 diabetes mellitus, and constipation. PLAN We will do Fleet's enema and continue current medications and antibiotics as per Infectious Disease. Continue DVT prophylaxis. Lucero Leonard MD
[2018-02-18] MEDS: Vancomycin 1 gm/NS 200 ml 1 GM/200 ML BAG IVPB SCH ×2 (00:21→12:55)
[2018-02-18] MEDS: Clindamycin 300 MG in Sodium Chloride 0.9% 50 ML IVPB SCH ×4 (00:43→19:39)
[2018-02-18] MEDS: Piperacillin/Tazobact 3.375 GM in Sodium Chloride 100 ML IVPB SCH ×2 (06:47→16:39)
[2018-02-18] MEDS: (Novolog) Insulin Aspart, Recombinant 100 u/ml 10 ml vial SC SCH ×4 (08:09→23:24)
[2018-02-18] MEDS: Pantoprazole 40 mg EC Tab PO SCH (09:34)
[2018-02-18] MEDS: Enoxaparin 40 mg Syringe SC SCH (09:34)
--- NOTE | 2018-02-18 20:13 | CP.PCM.PN ---
Subjective - Date & Time of Evaluation Date of Evaluation: 02/18/18 Time of Evaluation: 20:13 - Subjective Subjective: CHIEF COMPLAINTS TODAY : AFEBRILE. c/o constipation Had enema today LT. LE CELLULITUS/AND EDEMA IMPROVING VERY SLOWLY ROS. HEENT : N. Resp : No cough, wheezing ,pleuritic CP ,or hemoptysis Cardio : No anginal CP, PND, orthopnea, palpitation GI : No abd.pain, n/v ,diarrhea or GI bleeding . TIME PIECE REPAIRER : No headache, vertigo, focal deficit. Musculoskel : No joint swelling , Derm : CELLULITIS LLE /EDEMA+VE Psych : Normal affect. Ext : No swelling ,calf pain PE. Pt. is alert awake in no distress. V.S As noted in the chart Head ,ear nose,throat and eyes : Normal. Neck : Supple with normal carotids. Lungs: Clear air entry. Heart : S1 & S2 normal with S4. No murmur. Abd : Soft non tender with normal bowel sounds. Neuro : Moves all ext. with no localized deficit. Ext :Non tender calves CELLULITIS LLE /EDEMA+VE Derm : No rashes or decubitus ulcer. LABS/RADIOLOGY: ALL NEGATIVE TO DATE MRSA screen negative. wbc 12.7/H/H 12.9 pLATELETS 262 cREATININE 0.8 bun OF 11. Objective - Vital Signs/Intake and Output Vital Signs (last 24 hours): Temp Pulse Resp BP Pulse Ox 98.7 F 70 20 107/67 96 02/18/18 15:00 02/18/18 15:00 02/18/18 15:00 02/18/18 15:00 02/18/18 15:00 Intake and Output: 02/18/18 02/19/18 18:59 06:59 Intake Total 300 Balance 300 - Medications Medications: Current Medications Aspirin (Ecotrin) 81 mg PO DAILY [facility] Last Admin: 02/18/18 09:34 Dose: 81 mg Bisoprolol Fumarate (Zebeta) 5 mg PO BID [facility] Last Admin: 02/18/18 18:50 Dose: 5 mg Enoxaparin Sodium (Lovenox) 40 mg SC DAILY [facility] Last Admin: 02/18/18 09:34 Dose: 40 mg Folic Acid (Folic Acid) 1 mg PO DAILY [facility] Last Admin: 02/18/18 09:34 Dose: 1 mg Hydralazine HCl (Apresoline) 50 mg PO BID [facility] Last Admin: 02/18/18 18:50 Dose: 50 mg Hydrochlorothiazide (Microzide) 12.5 mg PO BID [facility] Last Admin: 02/18/18 18:50 Dose: 12.5 mg Vancomycin/Sodium Chloride (Vancomycin 1 Gm/Ns 200 Ml) 1 gm in 200 mls @ 133 mls/hr IVPB Q12H [facility] PRN Reason: Protocol Stop: 02/22/18 00:01 Last Admin: 02/18/18 12:55 Dose: 133 mls/hr Piperacillin Sod/Tazobactam (Sod 3.375 gm/ Sodium Chloride) 100 mls @ 200 mls/ hr IVPB Q8H [facility] PRN Reason: Protocol Last Admin: 02/18/18 16:39 Dose: 200 mls/hr Clindamycin Phosphate 300 mg/ (Sodium Chloride) 52 mls @ 104 mls/hr IVPB Q6H [facility] PRN Reason: Protocol Last Admin: 02/18/18 14:25 Dose: 104 mls/hr Insulin Aspart (Novolog) 0 unit SC ACHS [facility] PRN Reason: Protocol Last Admin: 02/18/18 18:50 Dose: Not Given Lactulose (Enulose) 20 gm PO Q4H [facility] Last Admin: 02/18/18 18:50 Dose: 20 gm Losartan Potassium (Cozaar) 50 mg PO BID [facility] Last Admin: 02/18/18 18:50 Dose: 50 mg Ondansetron HCl (Zofran Tab) 4 mg PO Q6H [facility] PRN Reason: Nausea/Vomiting Oxycodone HCl (Oxycodone Immediate Release Tab) 5 mg PO Q6H PRN PRN Reason: Pain, moderate (4-7) Pantoprazole Sodium (Protonix Ec Tab) 40 mg PO DAILY [facility] Last Admin: 02/18/18 09:34 Dose: 40 mg Rosuvastatin Calcium (Crestor) 10 mg PO HS [facility] Last Admin: 02/17/18 22:04 Dose: 10 mg Tamsulosin HCl (Flomax) 0.4 mg PO BID [facility] Last Admin: 02/18/18 18:50 Dose: 0.4 mg - Labs Labs: 02/17/18 06:08 02/17/18 06:08 PT 13.9 SECONDS (9.7-12.2) H 02/16/18 12:00 INR 1.3 02/16/18 12:00 APTT 34 SECONDS (21-34) 02/16/18 12:00 Assessment and Plan (1) Cellulitis of left leg Assessment & Plan: CONTINUE iv zOSYN 3.375 EVERY 8 HOURLY 02/16/18. CONTINUE iv VANCOMYCIN 1 G EVERY 12 HOURLY. 02/16/18. Continue iv cleocin 300 mg IV piggyback every 6 hourly for now 02/17/18 fOLLOW-UP vANCO TROUGH PRIOR TO THE FOURTH DOSE AND KEEP BETWEEN 10 AND 20. F/U RENAL FUNCTIONS CLOSELY. Status: Acute (2) Non-small cell lung cancer (NSCLC) Assessment & Plan: patient on chemotherapy for lung cancer. . Last chemotherapy dose on January 30, 2018. Status: Acute (3) Diabetes mellitus Status: Acute (4) HTN (hypertension) Status: Acute (5) Obesity, morbid Status: Acute
[2018-02-19] MEDS: Piperacillin/Tazobact 3.375 GM in Sodium Chloride 100 ML IVPB SCH ×4 (00:43→23:45)
[2018-02-19] MEDS: Vancomycin 1 gm/NS 200 ml 1 GM/200 ML BAG IVPB SCH ×2 (01:33→12:08)
[2018-02-19] MEDS: Clindamycin 300 MG in Sodium Chloride 0.9% 50 ML IVPB SCH ×4 (03:46→19:46)
[2018-02-19] MEDS: (Novolog) Insulin Aspart, Recombinant 100 u/ml 10 ml vial SC SCH ×4 (08:13→21:22)
[2018-02-19] MEDS: Enoxaparin 40 mg Syringe SC SCH (10:08)
[2018-02-19] MEDS: Pantoprazole 40 mg EC Tab PO SCH (10:08)
[2018-02-20] MEDS: Vancomycin 1 gm/NS 200 ml 1 GM/200 ML BAG IVPB SCH ×2 (00:49→12:31)
[2018-02-20] MEDS: Clindamycin 300 MG in Sodium Chloride 0.9% 50 ML IVPB SCH ×4 (01:30→18:11)
--- NOTE | 2018-02-20 02:27 | PN ---
Copied To: Lucero Leonard MD Attending MD: Lucero Leonard MD DATE: 02/18/2018 SUBJECTIVE: The patient was seen on 02/18/2018. He is not in any cardiopulmonary distress and still did not move bowel. OBJECTIVE: VITAL SIGNS: Blood pressure was 107/67, temperature 97.8, respiratory rate 20, and pulse 17. HEENT: Pupils equal and reactive to light. Normal appearing mucosa of the conjunctivae, oropharynx, and nasal membrane mucosa. NECK: Supple. No JVD. No carotid bruit. No lymph node. No thyromegaly. CHEST AND LUNGS: Bilateral symmetrical expansion. Good air exchange. No rales, no rhonchi. CARDIOVASCULAR SYSTEM: PMI not localized. S1, S2. No additional sounds. ABDOMEN: Normoactive bowel sounds. No tenderness. No organomegaly. No masses. EXTREMITIES: No cyanosis, no clubbing. There is diffuse redness of the left lower extremity which is slightly less than before. INDUCTION MACHINE SETTER: Alert, awake, oriented x3. No neurological deficit could be appreciated. ASSESSMENT: 1. Cellulitis of the left lower extremity. 2. Metastatic cancer of lung. 3. Type 2 diabetes mellitus. 4. Hypertension. PLAN: Continue current IV antibiotics as per infectious disease inside sales consultant, and we will also give the patient enema to help in moving bowel. Lucero Leonard MD
[2018-02-20] MEDS: (Novolog) Insulin Aspart, Recombinant 100 u/ml 10 ml vial SC SCH ×4 (08:02→21:18)
[2018-02-20] MEDS: Piperacillin/Tazobact 3.375 GM in Sodium Chloride 100 ML IVPB SCH ×3 (09:06→23:59)
[2018-02-20] MEDS: Pantoprazole 40 mg EC Tab PO SCH (10:55)
[2018-02-20] MEDS: Enoxaparin 40 mg Syringe SC SCH (10:55)
--- NOTE | 2018-02-20 17:23 | CP.PCM.PN ---
Subjective - Date & Time of Evaluation Date of Evaluation: 02/20/18 Time of Evaluation: 17:23 - Subjective Subjective: CHIEF COMPLAINTS TODAY : AFEBRILE. LT. LE CELLULITUS/AND EDEMA IMPROVING C/O GLANS PENIS/AND FORESKIN IRRITATION( PT UNCIRCUMSIZED ) ? BALANITIS ?FUNGAL. ROS. HEENT : N. Resp : No cough, wheezing ,pleuritic CP ,or hemoptysis Cardio : No anginal CP, PND, orthopnea, palpitation GI : No abd.pain, n/v ,diarrhea or GI bleeding . SOFTWARE TOOLS ENGINEER : No headache, vertigo, focal deficit. Musculoskel : No joint swelling , Derm : CELLULITIS LLE /EDEMA+VE Psych : Normal affect. Ext : No swelling ,calf pain PE. Pt. is alert awake in no distress. V.S As noted in the chart Head ,ear nose,throat and eyes : Normal. Neck : Supple with normal carotids. Lungs: Clear air entry. Heart : S1 & S2 normal with S4. No murmur. Abd : Soft non tender with normal bowel sounds. Neuro : Moves all ext. with no localized deficit. Ext :Non tender calves CELLULITIS LLE /EDEMA+VE Derm : No rashes or decubitus ulcer. LABS/RADIOLOGY: ALL NEGATIVE TO DATE MRSA screen negative. VANCO TROUGH LOW Objective - Vital Signs/Intake and Output Vital Signs (last 24 hours): Temp Pulse Resp BP Pulse Ox 98.2 F 82 20 129/79 96 02/20/18 15:41 02/20/18 15:41 02/20/18 15:41 02/20/18 15:41 02/20/18 15:41 Intake and Output: 02/20/18 02/20/18 06:59 18:59 Intake Total 940 Balance 940 - Medications Medications: Current Medications Aspirin (Ecotrin) 81 mg PO DAILY [facility] Last Admin: 02/20/18 10:55 Dose: 81 mg Bisoprolol Fumarate (Zebeta) 5 mg PO BID [facility] Last Admin: 02/20/18 10:59 Dose: 5 mg Enoxaparin Sodium (Lovenox) 40 mg SC DAILY [facility] Last Admin: 02/20/18 10:55 Dose: 40 mg Folic Acid (Folic Acid) 1 mg PO DAILY [facility] Last Admin: 02/20/18 10:56 Dose: 1 mg Hydralazine HCl (Apresoline) 50 mg PO BID [facility] Last Admin: 02/20/18 10:55 Dose: 50 mg Hydrochlorothiazide (Microzide) 12.5 mg PO BID [facility] Last Admin: 02/20/18 10:55 Dose: 12.5 mg Vancomycin/Sodium Chloride (Vancomycin 1 Gm/Ns 200 Ml) 1 gm in 200 mls @ 133 mls/hr IVPB Q12H [facility] PRN Reason: Protocol Stop: 02/22/18 00:01 Last Admin: 02/20/18 12:31 Dose: 133 mls/hr Piperacillin Sod/Tazobactam (Sod 3.375 gm/ Sodium Chloride) 100 mls @ 200 mls/ hr IVPB Q8H [facility] PRN Reason: Protocol Last Admin: 02/20/18 16:15 Dose: 200 mls/hr Clindamycin Phosphate 300 mg/ (Sodium Chloride) 52 mls @ 104 mls/hr IVPB Q6H [facility] PRN Reason: Protocol Last Admin: 02/20/18 14:30 Dose: 104 mls/hr Insulin Aspart (Novolog) 0 unit SC ACHS [facility] PRN Reason: Protocol Last Admin: 02/20/18 17:08 Dose: Not Given Lactulose (Enulose) 20 gm PO Q4H [facility] Last Admin: 02/20/18 16:18 Dose: Not Given Losartan Potassium (Cozaar) 50 mg PO BID [facility] Last Admin: 02/20/18 10:56 Dose: 50 mg Ondansetron HCl (Zofran Tab) 4 mg PO Q6H [facility] PRN Reason: Nausea/Vomiting Oxycodone HCl (Oxycodone Immediate Release Tab) 5 mg PO Q6H PRN PRN Reason: Pain, moderate (4-7) Pantoprazole Sodium (Protonix Ec Tab) 40 mg PO DAILY [facility] Last Admin: 02/20/18 10:55 Dose: 40 mg Rosuvastatin Calcium (Crestor) 10 mg PO HS [facility] Last Admin: 02/19/18 21:21 Dose: 10 mg Tamsulosin HCl (Flomax) 0.4 mg PO BID [facility] Last Admin: 02/20/18 10:55 Dose: 0.4 mg - Labs Labs: 02/17/18 06:08 02/17/18 06:08 PT 13.9 SECONDS (9.7-12.2) H 02/16/18 12:00 INR 1.3 02/16/18 12:00 APTT 34 SECONDS (21-34) 02/16/18 12:00 Assessment and Plan (1) Cellulitis of left leg Assessment & Plan: IMPROVING. CONTINUE iv ZOSYN 3.375 EVERY 8 HOURLY 02/16/18. CONTINUE iv VANCOMYCIN , INCREASE DOSE TO 1350MG EVERY 12 HOURLY. 02/16/18. F/U VANCO TROUGH PRIOR TO 4TH DOSE AND KEEP BETWEEN 10 AND 20MG/L. F/U RENAL FUNCTIONS. 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 U/A /URINE CULTURE LOTRISONE CREAM LOCALLY TID.. Status: Acute
[2018-02-20 19:13] LABS: SQUAMOUS EPITHIAL 2 /hpf (0-5); URINE BACTERIA RARE (<OCC); URINE BILIRUBIN NEGATIVE (NEGATIVE); URINE BLOOD NEGATIVE (NEGATIVE); URINE CLARITY Clear (Clear); URINE COLOR Yellow (YELLOW); URINE GLUCOSE (UA) NORMAL (Normal); URINE LEUKOCYTE ESTERASE NEG Leu/uL (Negative); URINE PROTEIN NEGATIVE (NEGATIVE); URINE UROBILINOGEN NORMAL mg/dL (0.2-1.0)
[2018-02-20 19:59] LABS: BASO # 0.1 K/uL (0.0-0.2); EOS # 0.2 K/uL (0.0-0.7); EOS % 2.5 % (0.0-4.0); HEMOGLOBIN 13.2 g/dL (12.0-18.0); LYMPH # 1.4 K/uL (1.0-4.3); LYMPH % 16.9 % (20.0-40.0); MEAN CELL VOLUME 93.5 fL (80.0-94.0); MEAN CORPUSCULAR HEMOGLOBIN 32.8 pg (27.0-31.0); MEAN CORPUSCULAR HGB CONC 35.1 g/dL (33.0-37.0); MEAN PLATELET VOLUME 8.8 fL (7.2-11.7); MONO # 0.8 K/uL (0.0-0.8); MONO % 9.4 % (0.0-10.0); NEUT # 5.7 K/uL (1.8-7.0); NEUT % 70.2 % (50.0-75.0); NRBC % 0.1 % (0.0-2.0); RBC 4.02 Mil/uL (4.40-5.90); RED CELL DISTRIBUTION WIDTH 17.4 % (11.5-14.5); WHITE BLOOD COUNT 8.2 K/uL (4.8-10.8)
[2018-02-20 20:23] LABS: ALBUMIN 3.7 g/dL (3.5-5.0); ALT/SGPT 32 U/L (21-72); AST/SGOT 27 U/L (17-59); BILIRUBIN,DIRECT 0.4 mg/dL (0.0-0.4); BLOOD UREA NITROGEN 9 mg/dL (9-20); CALCIUM 8.9 mg/dl (8.6-10.4); GFR NON-AFRICAN AMERICAN > 60
--- NOTE | 2018-02-20 21:07 | PN ---
Copied To: Lucero Leonard MD Attending MD: Lucero Leonard MD DATE: 02/20/2018 DAILY PROGRESS NOTE SUBJECTIVE: The patient is seen today, 02/20/2018. He is complaining of pain during urination as well as still redness on the left lower extremity. PHYSICAL EXAMINATION VITAL SIGNS: Blood pressure 129/79, temperature 98.2, respiratory rate 20, and pulse 82. HEENT: Pupils equal, reactive to light. Normal-appearing mucosa of the conjunctivae, oropharynx, and nasal membrane mucosa. NECK: Supple. No JVD. No carotid bruit. No lymph nodes. No thyromegaly. CHEST AND LUNGS: Bilateral symmetrical expansion. Good air exchange. No rales. No rhonchi. CARDIOVASCULAR: PMI not localized. S1, S2. No additional sounds. ABDOMEN: Normoactive bowel sounds. No tenderness. No organomegaly. No masses. EXTREMITIES: Redness of the left lower extremity which is slightly less. WAITER AND CASHIER: Alert, awake, and oriented x3. No neurological deficit could be appreciated. GENITOURINARY: The patient has slight erythema of the foreskin. ASSESSMENT: 1. Cellulitis of the left lower extremity. 2. Type 2 diabetes mellitus. 3. Hypertension. 4. Metastatic cancer of lung. 5. Balanitis. PLAN: Continue current IV antibiotics. Discussed the patient's condition with Infectious Disease who will add clindamycin. We will do Bactroban cream to the foreskin of the penis. Lucero Leonard MD
[2018-02-20] MEDS: Clotrimazole/Betamethasone Cream(15 gm) TOP SCH (21:46)
[2018-02-21] MEDS: Clindamycin 300 MG in Sodium Chloride 0.9% 50 ML IVPB SCH ×4 (00:38→19:30)
[2018-02-21] MEDS: Vancomycin 1,350 MG in Sodium Chloride 0.9% 500 ML IVPB SCH ×2 (01:22→11:44)
[2018-02-21] MEDS: (Novolog) Insulin Aspart, Recombinant 100 u/ml 10 ml vial SC SCH ×4 (08:05→22:03)
[2018-02-21] MEDS: Piperacillin/Tazobact 3.375 GM in Sodium Chloride 100 ML IVPB SCH ×2 (08:10→15:04)
[2018-02-21] MEDS: Pantoprazole 40 mg EC Tab PO SCH (09:22)
[2018-02-21] MEDS: Enoxaparin 40 mg Syringe SC SCH (09:24)
[2018-02-21] MEDS: Clotrimazole/Betamethasone Cream(15 gm) TOP SCH ×3 (09:31→17:38)
--- NOTE | 2018-02-21 15:19 | CP.PCM.PN ---
Subjective - Date & Time of Evaluation Date of Evaluation: 02/21/18 Time of Evaluation: 15:19 - Subjective Subjective: CHIEF COMPLAINTS TODAY : AFEBRILE. LT. LE CELLULITUS/AND EDEMA IMPROVING LESS IRRITATION GLANS PENIS/AND FORESKIN( PT UNCIRCUMSIZED ) ROS. HEENT : N. Resp : No cough, wheezing ,pleuritic CP ,or hemoptysis Cardio : No anginal CP, PND, orthopnea, palpitation GI : No abd.pain, n/v ,diarrhea or GI bleeding . VENTILATION WORKER : No headache, vertigo, focal deficit. Musculoskel : No joint swelling , Derm : CELLULITIS LLE /EDEMA+VE Psych : Normal affect. Ext : No swelling ,calf pain PE. Pt. is alert awake in no distress. V.S As noted in the chart Head ,ear nose,throat and eyes : Normal. Neck : Supple with normal carotids. Lungs: Clear air entry. Heart : S1 & S2 normal with S4. No murmur. Abd : Soft non tender with normal bowel sounds. Neuro : Moves all ext. with no localized deficit. Ext :Non tender calves CELLULITIS LLE /EDEMA+VE Derm : No rashes or decubitus ulcer. LABS/RADIOLOGY: URINE CULTURE -VE 02/20/18 ALL NEGATIVE TO DATE MRSA screen negative. VANCO TROUGH LOW cREATININE 0.8 bun OF 11. Objective - Vital Signs/Intake and Output Vital Signs (last 24 hours): Temp Pulse Resp BP Pulse Ox 98.5 F 64 20 120/71 95 02/21/18 12:11 02/21/18 12:11 02/21/18 12:11 02/21/18 12:11 02/21/18 12:11 Intake and Output: 02/21/18 02/21/18 06:59 18:59 Intake Total 750 1150 Balance 750 1150 - Medications Medications: Current Medications Aspirin (Ecotrin) 81 mg PO DAILY [facility] Last Admin: 02/21/18 09:23 Dose: 81 mg Betamethasone/Clotrimazole (Lotrisone) 0 gm TOP TID [facility] Last Admin: 02/21/18 14:03 Dose: 1 applic Bisoprolol Fumarate (Zebeta) 5 mg PO BID [facility] Last Admin: 02/21/18 10:26 Dose: 5 mg Enoxaparin Sodium (Lovenox) 40 mg SC DAILY [facility] Last Admin: 02/21/18 09:24 Dose: 40 mg Folic Acid (Folic Acid) 1 mg PO DAILY [facility] Last Admin: 02/21/18 09:22 Dose: 1 mg Hydralazine HCl (Apresoline) 50 mg PO BID [facility] Last Admin: 02/21/18 09:22 Dose: 50 mg Hydrochlorothiazide (Microzide) 12.5 mg PO BID [facility] Last Admin: 02/21/18 09:22 Dose: 12.5 mg Piperacillin Sod/Tazobactam (Sod 3.375 gm/ Sodium Chloride) 100 mls @ 200 mls/ hr IVPB Q8H [facility] PRN Reason: Protocol Last Admin: 02/21/18 15:04 Dose: 200 mls/hr Clindamycin Phosphate 300 mg/ (Sodium Chloride) 52 mls @ 104 mls/hr IVPB Q6H [facility] PRN Reason: Protocol Last Admin: 02/21/18 14:00 Dose: 104 mls/hr Vancomycin HCl 1,350 mg/ (Sodium Chloride) 500 mls @ 220 mls/hr IVPB Q12H [facility] PRN Reason: Protocol Last Admin: 02/21/18 11:44 Dose: 220 mls/hr Insulin Aspart (Novolog) 0 unit SC ACHS [facility] PRN Reason: Protocol Last Admin: 02/21/18 12:38 Dose: Not Given Lactulose (Enulose) 20 gm PO Q4H [facility] Last Admin: 02/21/18 14:15 Dose: Not Given Losartan Potassium (Cozaar) 50 mg PO BID [facility] Last Admin: 02/21/18 09:22 Dose: 50 mg Mupirocin (Bactroban Ointment) 0 gm TOP BID [facility] Last Admin: 02/21/18 10:26 Dose: 2 applic Ondansetron HCl (Zofran Tab) 4 mg PO Q6H PRN PRN Reason: Nausea/Vomiting Pantoprazole Sodium (Protonix Ec Tab) 40 mg PO DAILY [facility] Last Admin: 02/21/18 09:22 Dose: 40 mg Rosuvastatin Calcium (Crestor) 10 mg PO HS [facility] Last Admin: 02/20/18 21:47 Dose: 10 mg Tamsulosin HCl (Flomax) 0.4 mg PO BID [facility] Last Admin: 02/21/18 09:22 Dose: 0.4 mg - Labs Labs: 02/20/18 19:50 02/21/18 10:39 PT 13.9 SECONDS (9.7-12.2) H 02/16/18 12:00 INR 1.3 02/16/18 12:00 APTT 34 SECONDS (21-34) 02/16/18 12:00 Assessment and Plan (1) Cellulitis of left leg Assessment & Plan: IMPROVING. CONTINUE iv ZOSYN 3.375 EVERY 8 HOURLY 02/16/18. CONTINUE iv VANCOMYCIN , INCREASE DOSE TO 1350MG EVERY 12 HOURLY. 02/16/18. F/U VANCO TROUGH PRIOR TO 4TH DOSE AND KEEP BETWEEN 10 AND 20MG/L. F/U RENAL FUNCTIONS. 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 LOTRISONE CREAM LOCALLY TID.. Status: Acute
[2018-02-22] MEDS: Piperacillin/Tazobact 3.375 GM in Sodium Chloride 100 ML IVPB SCH ×3 (00:29→15:40)
[2018-02-22] MEDS: Clindamycin 300 MG in Sodium Chloride 0.9% 50 ML IVPB SCH ×3 (01:07→14:16)
[2018-02-22] MEDS: Vancomycin 1,350 MG in Sodium Chloride 0.9% 500 ML IVPB SCH ×2 (01:39→11:53)
[2018-02-22] MEDS: (Novolog) Insulin Aspart, Recombinant 100 u/ml 10 ml vial SC SCH ×4 (07:44→21:27)
[2018-02-22 07:56] LABS: BASO # 0.1 K/uL (0.0-0.2); BASO % 1.3 % (0.0-2.0); EOS # 0.2 K/uL (0.0-0.7); EOS % 2.9 % (0.0-4.0); HEMOGLOBIN 13.3 g/dL (12.0-18.0); LYMPH # 1.2 K/uL (1.0-4.3); LYMPH % 17.3 % (20.0-40.0); MEAN CELL VOLUME 94.2 fL (80.0-94.0); MEAN CORPUSCULAR HEMOGLOBIN 32.5 pg (27.0-31.0); MEAN CORPUSCULAR HGB CONC 34.5 g/dL (33.0-37.0); MEAN PLATELET VOLUME 9.3 fL (7.2-11.7); MONO # 0.9 K/uL (0.0-0.8); MONO % 12.2 % (0.0-10.0); NEUT # 4.6 K/uL (1.8-7.0); NEUT % 66.3 % (50.0-75.0); NRBC % 0.4 % (0.0-2.0); RBC 4.1 Mil/uL (4.40-5.90); RED CELL DISTRIBUTION WIDTH 17.1 % (11.5-14.5)
[2018-02-22 08:07] LABS: BLOOD UREA NITROGEN 9 mg/dL (9-20); CALCIUM 9.2 mg/dl (8.6-10.4); GFR NON-AFRICAN AMERICAN > 60
[2018-02-22] MEDS: Pantoprazole 40 mg EC Tab PO SCH (10:35)
[2018-02-22] MEDS: Enoxaparin 40 mg Syringe SC SCH (10:35)
[2018-02-22] MEDS: Clotrimazole/Betamethasone Cream(15 gm) TOP SCH ×3 (10:36→18:01)
--- NOTE | 2018-02-22 12:25 | PN ---
Copied To: Lucero Leonard MD Attending MD: Lucero Leonard MD DATE: 02/21/2018 SUBJECTIVE: The patient was seen on 02/21/2018. Redness and swelling of the left lower extremity is decreasing. PHYSICAL EXAMINATION: VITAL SIGNS: Blood pressure 150/77, temperature 97.9, respiratory rate 20, and pulse 73. HEENT: Pupils equal, reactive to light. Normal-appearing mucosa of the conjunctivae, oropharynx and nasal membrane mucosa. NECK: Supple. No JVD. No carotid bruit. No lymph nodes. No thyromegaly. CHEST AND LUNGS: Bilateral symmetrical expansion. Good air exchange. No rales. No rhonchi. CARDIOVASCULAR SYSTEM: PMI not localized. S1 and S2. No additional sounds. ABDOMEN: Normoactive bowel sounds. No tenderness. No organomegaly. No masses. EXTREMITIES: No cyanosis, no clubbing, no edema. Left lower extremity, there is redness from the left ankle up to the mid tibia, which is receding. FOLLOW UP SPECIALIST: Alert, awake, oriented x3. No neurological deficit could be appreciated. ASSESSMENT: Cellulitis of the left lower extremity, type 2 diabetes mellitus, hypertension, metastatic cancer of lung. PLAN: Continue current antibiotics and follow ID recommendations. Lucero Leonard MD
--- NOTE | 2018-02-22 18:29 | CP.PCM.PN ---
Subjective - Date & Time of Evaluation Date of Evaluation: 02/22/18 Time of Evaluation: 18:29 - Subjective Subjective: CHIEF COMPLAINTS TODAY : AFEBRILE. LT. LE CELLULITUS/AND EDEMA IMPROVING BUT SLOWLY GENITAL RASH IMPROVING ROS. HEENT : N. Resp : No cough, wheezing ,pleuritic CP ,or hemoptysis Cardio : No anginal CP, PND, orthopnea, palpitation GI : No abd.pain, n/v ,diarrhea or GI bleeding . 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 Musculoskel : No joint swelling , Derm : CELLULITIS LLE /EDEMA+VE Psych : Normal affect. Ext : No swelling ,calf pain PE. Pt. is alert awake in no distress. V.S As noted in the chart Head ,ear nose,throat and eyes : Normal. Neck : Supple with normal carotids. Lungs: Clear air entry. Heart : S1 & S2 normal with S4. No murmur. Abd : Soft non tender with normal bowel sounds. Neuro : Moves all ext. with no localized deficit. Ext :Non tender calves CELLULITIS LLE /EDEMA+VE Derm : No rashes or decubitus ulcer. LABS/RADIOLOGY: WBC7.0 H/H 13.3 H/H 13.3 URINE CULTURE -VE 02/20/18 ALL NEGATIVE TO DATE MRSA screen negative. VANCO TROUGH LOW cREATININE 0.8 bun 9.. Objective - Vital Signs/Intake and Output Vital Signs (last 24 hours): Temp Pulse Resp BP Pulse Ox 98.1 F 68 20 140/74 95 02/22/18 16:00 02/22/18 16:00 02/22/18 16:00 02/22/18 16:00 02/22/18 16:00 Intake and Output: 02/22/18 02/22/18 06:59 18:59 Intake Total 1999 Balance 1999 - Medications Medications: Current Medications Aspirin (Ecotrin) 81 mg PO DAILY [facility] Last Admin: 02/22/18 10:35 Dose: 81 mg Betamethasone/Clotrimazole (Lotrisone) 0 gm TOP TID [facility] Last Admin: 02/22/18 18:01 Dose: 1 applic Bisoprolol Fumarate (Zebeta) 5 mg PO BID [facility] Last Admin: 02/22/18 17:30 Dose: 5 mg Enoxaparin Sodium (Lovenox) 40 mg SC DAILY [facility] Last Admin: 02/22/18 10:35 Dose: 40 mg Folic Acid (Folic Acid) 1 mg PO DAILY [facility] Last Admin: 02/22/18 10:35 Dose: 1 mg Hydralazine HCl (Apresoline) 50 mg PO BID [facility] Last Admin: 02/22/18 17:30 Dose: 50 mg Hydrochlorothiazide (Microzide) 12.5 mg PO BID [facility] Last Admin: 02/22/18 17:30 Dose: 12.5 mg Piperacillin Sod/Tazobactam (Sod 3.375 gm/ Sodium Chloride) 100 mls @ 200 mls/ hr IVPB Q8H [facility] PRN Reason: Protocol Last Admin: 02/22/18 15:40 Dose: 200 mls/hr Vancomycin HCl 1,350 mg/ (Sodium Chloride) 500 mls @ 220 mls/hr IVPB Q12H [facility] PRN Reason: Protocol Last Admin: 02/22/18 11:53 Dose: 220 mls/hr Insulin Aspart (Novolog) 0 unit SC ACHS [facility] PRN Reason: Protocol Last Admin: 02/22/18 17:34 Dose: Not Given Lactulose (Enulose) 20 gm PO Q4H [facility] Last Admin: 02/22/18 14:23 Dose: Not Given Losartan Potassium (Cozaar) 50 mg PO BID [facility] Last Admin: 02/22/18 17:30 Dose: 50 mg Mupirocin (Bactroban Ointment) 0 gm TOP BID [facility] Last Admin: 02/22/18 18:00 Dose: 1 applic Ondansetron HCl (Zofran Tab) 4 mg PO Q6H [facility] PRN Reason: Nausea/Vomiting Last Admin: 02/22/18 10:35 Dose: 4 mg Pantoprazole Sodium (Protonix Ec Tab) 40 mg PO DAILY [facility] Last Admin: 02/22/18 10:35 Dose: 40 mg Rosuvastatin Calcium (Crestor) 10 mg PO HS [facility] Last Admin: 02/21/18 21:08 Dose: 10 mg Tamsulosin HCl (Flomax) 0.4 mg PO BID [facility] Last Admin: 02/22/18 17:30 Dose: 0.4 mg - Labs Labs: 02/22/18 07:38 02/22/18 07:38 PT 13.9 SECONDS (9.7-12.2) H 02/16/18 12:00 INR 1.3 02/16/18 12:00 APTT 34 SECONDS (21-34) 02/16/18 12:00 Assessment and Plan (1) Cellulitis of left leg Assessment & Plan: IMPROVING SLOWLY CONTINUE iv ZOSYN 3.375 EVERY 8 HOURLY 02/16/18. CONTINUE iv VANCOMYCIN , INCREASE DOSE TO 1350MG EVERY 12 HOURLY. 02/16/18. F/U VANCO TROUGH PRIOR TO 4TH DOSE AND KEEP BETWEEN 10 AND 20MG/L. F/U RENAL FUNCTIONS. DC iv cleocin 300 mg IV piggyback every 6 hourly for now 02/17/18---> 02/22/18 CASE DISCUSSED WITH PRIMARY CARE DR UMANA. PATIENT HAS AN INFECTIOUS PROCESS AND WOULD CONSIDER CHEMOTHERAPY AFTER RESOLUTION OF ERYSIPLAS LEFT LE. PLEASE DISCUSS WITH ONCOLOGIST TO EVALUATE FOR CHEMOTHERAPY HE IS SCHEDULED TO GET IT ON TUESDAY. CONTINUE IV ANTIBIOTICS TILL WEEKEND AND CAN SWITCH PT ON PO DOXYCYCLINE 100MG PO BID X 10 DAYS. F/U PT OPD. Status: Acute (2) Non-small cell lung cancer (NSCLC) Status: Acute (3) Diabetes mellitus Status: Acute (4) HTN (hypertension) Status: Acute (5) Obesity, morbid Status: Acute (6) Balanitis circinata Assessment & Plan: MOSTLY FUNGAL IN DM. LOTRISONE CREAM LOCALLY TID X 10 DAYS. Status: Acute
--- NOTE | 2018-02-22 21:04 | CP.PCM.CON ---
History of Present Illness - History of Present Illness History of Present Illness: 62 year old male with a history of tobacco abuse, DM, HTN, GERD, stage IV NSCLC with bone metastasis on chemotherapy and immunotherapy, admitted with left lower extremity cellulitis. The patient had a trial of oral antibiotics but notes to worsening swelling, redness, and pain in the left leg. He denies fevers and chills. Lower extremity venous duplex was negative for DVT. Past medical history: tobacco abuse, HTN, DM, GERD, stage IV NSCLC Past surgical history: Neck and knee surgery Family history: Mother had cervical cancer Social history: 1/2ppd x 40 years, denies alcohol, and illicit drug use. Allergies: NKA Review of systems: All remaining review of systems including HEENT, cardiovascular, respiratory, gastrointestinal, genitourinary, musculoskeletal, dermatologic, neurologic, and psychiatric are negative unless mentioned in the HPI. Past Patient History - Past Medical History & Family History Past Medical History?: Yes - Past Social History Smoking Status: Former Smoker - CARDIAC Hx Hypertension: Yes - PULMONARY Hx Respiratory Disorders: No - NEUROLOGICAL Hx Neurological Disorder: No - HEENT Hx HEENT Problems: Yes Other/Comment: poor visio - RENAL Hx Chronic Kidney Disease: No - ENDOCRINE/METABOLIC Hx Endocrine Disorders: Yes Hx Diabetes Mellitus Type 2: Yes (diet controlled) - HEMATOLOGICAL/ONCOLOGICAL Hx Blood Disorders: No - INTEGUMENTARY Hx Dermatological Problems: Yes Other/Comment: athlete's foot - MUSCULOSKELETAL/RHEUMATOLOGICAL Hx Falls: No - GASTROINTESTINAL Hx Gastrointestinal Disorders: Yes Hx Constipation: Yes Hx Gastroesophageal Reflux: Yes Other/Comment: Acid reflux - GENITOURINARY/GYNECOLOGICAL Hx Genitourinary Disorders: Yes Hx Prostate Problems: Yes - PSYCHIATRIC Hx Substance Use: No - SURGICAL HISTORY Hx Surgeries: Yes Other/Comment: cyst removed from neck, Lt. knee surgery; L 5th digit tendon repair,lung bx - ANESTHESIA Hx Anesthesia: Yes Hx Anesthesia Reactions: Yes (nausea,vomitting) Meds Allergies/Adverse Reactions: Allergies Allergy/AdvReac Type Severity Reaction Status Date / Time No Known Allergies Allergy Verified 02/16/18 11:33 - Medications Medications: Current Medications Aspirin (Ecotrin) 81 mg PO DAILY [facility] Last Admin: 02/22/18 10:35 Dose: 81 mg Betamethasone/Clotrimazole (Lotrisone) 0 gm TOP TID [facility] Last Admin: 02/22/18 18:01 Dose: 1 applic Bisoprolol Fumarate (Zebeta) 5 mg PO BID [facility] Last Admin: 02/22/18 17:30 Dose: 5 mg Enoxaparin Sodium (Lovenox) 40 mg SC DAILY [facility] Last Admin: 02/22/18 10:35 Dose: 40 mg Folic Acid (Folic Acid) 1 mg PO DAILY [facility] Last Admin: 02/22/18 10:35 Dose: 1 mg Hydralazine HCl (Apresoline) 50 mg PO BID [facility] Last Admin: 02/22/18 17:30 Dose: 50 mg Hydrochlorothiazide (Microzide) 12.5 mg PO BID [facility] Last Admin: 02/22/18 17:30 Dose: 12.5 mg Piperacillin Sod/Tazobactam (Sod 3.375 gm/ Sodium Chloride) 100 mls @ 200 mls/ hr IVPB Q8H [facility] PRN Reason: Protocol Last Admin: 02/22/18 15:40 Dose: 200 mls/hr Vancomycin HCl 1,350 mg/ (Sodium Chloride) 500 mls @ 220 mls/hr IVPB Q12H [facility] PRN Reason: Protocol Last Admin: 02/22/18 11:53 Dose: 220 mls/hr Insulin Aspart (Novolog) 0 unit SC ACHS [facility] PRN Reason: Protocol Last Admin: 02/22/18 17:34 Dose: Not Given Lactulose (Enulose) 20 gm PO Q4H [facility] Last Admin: 02/22/18 14:23 Dose: Not Given Losartan Potassium (Cozaar) 50 mg PO BID [facility] Last Admin: 02/22/18 17:30 Dose: 50 mg Mupirocin (Bactroban Ointment) 0 gm TOP BID [facility] Last Admin: 02/22/18 18:00 Dose: 1 applic Ondansetron HCl (Zofran Tab) 4 mg PO Q6H [facility] PRN Reason: Nausea/Vomiting Last Admin: 02/22/18 10:35 Dose: 4 mg Pantoprazole Sodium (Protonix Ec Tab) 40 mg PO DAILY [facility] Last Admin: 02/22/18 10:35 Dose: 40 mg Rosuvastatin Calcium (Crestor) 10 mg PO HS [facility] Last Admin: 02/21/18 21:08 Dose: 10 mg Tamsulosin HCl (Flomax) 0.4 mg PO BID [facility] Last Admin: 08/22/18 17:30 Dose: 0.4 mg Physical Exam - Head Exam Head Exam: ATRAUMATIC - Eye Exam Eye Exam: Normal appearance - ENT Exam ENT Exam: Mucous Membranes Dry - Respiratory Exam Respiratory Exam: NORMAL BREATHING PATTERN - Cardiovascular Exam Cardiovascular Exam: +S1, +S2 - GI/Abdominal Exam GI & Abdominal Exam: Normal Bowel Sounds - Extremities Exam Extremities exam: Positive for: pedal edema Results - Vital Signs Recent Vital Signs: Last Vital Signs Temp 98.1 F 02/22/18 16:00 Pulse 68 02/22/18 16:00 Resp 20 02/22/18 16:00 BP 140/74 02/22/18 16:00 Pulse Ox 95 02/22/18 16:00 - Labs Result Diagrams: 02/22/18 07:38 02/23/18 07:42 Labs: Laboratory Results - last 24 hr 02/21/18 02/22/18 02/22/18 21:22 07:06 07:38 WBC 7.0 RBC 4.10 L Hgb 13.3 Hct 38.6 MCV 94.2 H MCH 32.5 H MCHC 34.5 RDW 17.1 H Plt Count 288 MPV 9.3 Neut % (Auto) 66.3 Lymph % (Auto) 17.3 L Carbon % (Auto) 12.2 H Eos % (Auto) 2.9 Baso % (Auto) 1.3 Neut # (Auto) 4.6 Lymph # (Auto) 1.2 Carbon # (Auto) 0.9 H Eos # (Auto) 0.2 Baso # (Auto) 0.1 Sodium Potassium Chloride Carbon Dioxide Anion Gap BUN Creatinine Est GFR ( Amer) Est GFR (Non-Af Amer) POC Glucose (mg/dL) 106 129 H Random Glucose Calcium 02/22/18 02/22/18 07:38 16:27 WBC RBC Hgb Hct MCV MCH MCHC RDW Plt Count MPV Neut % (Auto) Lymph % (Auto) Carbon % (Auto) Eos % (Auto) Baso % (Auto) Neut # (Auto) Lymph # (Auto) Carbon # (Auto) Eos # (Auto) Baso # (Auto) Sodium 142 Potassium 3.8 Chloride 101 Carbon Dioxide 32 H Anion Gap 13 BUN 9 Creatinine 0.8 Est GFR ( Amer) > 60 Est GFR (Non-Af Amer) > 60 POC Glucose (mg/dL) 141 H Random Glucose 129 H Calcium 9.2 Assessment & Plan (1) Non-small cell lung cancer (NSCLC) Assessment and Plan: stage IV NSCLC - adenocarcinoma on carboplatin, Alimta, Keytruda will hold chemotherapy until infection cleared Thank you for this interesting consult. Status: Acute
[2018-02-23] MEDS: Piperacillin/Tazobact 3.375 GM in Sodium Chloride 100 ML IVPB SCH ×4 (00:12→23:54)
[2018-02-23] MEDS: Vancomycin 1,350 MG in Sodium Chloride 0.9% 500 ML IVPB SCH ×2 (01:28→12:21)
[2018-02-23] MEDS: (Novolog) Insulin Aspart, Recombinant 100 u/ml 10 ml vial SC SCH ×4 (07:29→21:47)
[2018-02-23 08:20] LABS: BLOOD UREA NITROGEN 10 mg/dL (9-20); CALCIUM 8.9 mg/dl (8.6-10.4); GFR NON-AFRICAN AMERICAN > 60
[2018-02-23] MEDS: Enoxaparin 40 mg Syringe SC SCH (09:26)
[2018-02-23] MEDS: Pantoprazole 40 mg EC Tab PO SCH (09:26)
[2018-02-23] MEDS: Clotrimazole/Betamethasone Cream(15 gm) TOP SCH ×3 (09:27→18:10)
--- NOTE | 2018-02-23 13:38 | PN ---
COPIED To: Lucero Leonard MD Attending MD: Lucero Leonard MD DATE: 02/22/2018 SUBJECTIVE: This patient was seen on 02/22/2018. He still has redness of the left lower extremity with some tenderness. He is on both vancomycin and Zosyn. PHYSICAL EXAMINATION: VITAL SIGNS: Blood pressure was 140/74, temperature 98.1, respiratory rate 20, and pulse 68. HEENT: Pupils equal and reactive to light. Normal-appearing mucosa of the conjunctivae, oropharyngeal and nasal membrane mucosa. NECK: Supple. No JVD. No carotid bruit. No lymph node. No thyromegaly. CHEST AND LUNGS: Bilateral symmetrical expansion. Good air exchange bilaterally. CARDIOVASCULAR SYSTEM: PMI not localized. S1 and S2. No additional sounds. ABDOMEN: Normoactive bowel sounds. No tenderness. No organomegaly. No masses. EXTREMITIES: Redness of the left lower extremity from the ankle to the mid tibia, which is slightly decreased from before. 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 No neurological deficit could be appreciated. ASSESSMENT: 1. Cellulitis of the left lower extremity with slow improvement on current treatment. All cultures were negative. 2. Metastatic cancer of lung, on chemotherapy. 3. Type 2 diabetes mellitus. 4. Hypertension. PLAN: We discussed the patient's condition with ID cancer program consultant and also called websphere consultant as the patient is due for another cycle of chemotherapy. We will continue current antibiotics for now and monitor blood work and electrolytes. Lucero Leonard MD
[2018-02-24] MEDS: Vancomycin 1,350 MG in Sodium Chloride 0.9% 500 ML IVPB SCH ×2 (01:36→12:15)
--- NOTE | 2018-02-24 02:10 | PN ---
Copied To: Lucero Leonard MD Attending MD: Lucero Leonard MD DATE: 02/23/2018 SUBJECTIVE: The patient is seen today, 02/23/2018. He is not in any cardiopulmonary distress. The patient still has redness and swelling of the left lower extremity which is getting better. PHYSICAL EXAMINATION: VITAL SIGNS: Blood pressure 138/79, temperature 98.2, respiratory rate 20, and pulse 61. HEENT: Pupils equal, reactive to light. Normal-appearing mucosa of the conjunctivae, oropharynx, and nasal membrane mucosa. NECK: Supple. No JVD. No carotid bruit. No lymph node. No thyromegaly. CHEST AND LUNGS: Bilateral symmetrical expansion. Good air exchange. No rales. No rhonchi. CARDIOVASCULAR SYSTEM: PMI not localized. S1, S2. No additional sounds. ABDOMEN: Normoactive bowel sounds. No tenderness. No organomegaly. No masses. EXTREMITIES: No cyanosis. No clubbing. No edema. In left lower extremity, there is defined area of redness and slight swelling of the left lower extremity. ASSESSMENT: 1. Cellulitis of the left lower extremity. 2. Hypertension. 3. Type 2 diabetes mellitus. 4. Metastatic cancer of lung. PLAN: Continue current medications, and we will do venous Doppler of the lower extremity. Continue antibiotics as per ID. Lucero Leonard MD
[2018-02-24] MEDS: (Novolog) Insulin Aspart, Recombinant 100 u/ml 10 ml vial SC SCH ×4 (07:41→22:20)
[2018-02-24] MEDS: Piperacillin/Tazobact 3.375 GM in Sodium Chloride 100 ML IVPB SCH ×2 (08:52→15:01)
[2018-02-24] MEDS: Pantoprazole 40 mg EC Tab PO SCH (09:45)
[2018-02-24] MEDS: Enoxaparin 40 mg Syringe SC SCH (09:45)
[2018-02-24] MEDS: Clotrimazole/Betamethasone Cream(15 gm) TOP SCH ×3 (09:46→17:01)
--- NOTE | 2018-02-24 11:37 | CP.PCM.PN ---
Subjective - Date & Time of Evaluation Date of Evaluation: 02/23/18 Time of Evaluation: 15:00 - Subjective Subjective: No complaints. Objective - Vital Signs/Intake and Output Vital Signs (last 24 hours): Temp Pulse Resp BP Pulse Ox 98 F 60 20 160/82 H 97 02/24/18 08:44 02/24/18 08:44 02/24/18 08:44 02/24/18 08:44 02/24/18 08:44 Intake and Output: 02/24/18 02/24/18 06:59 18:59 Intake Total 400 800 Balance 400 800 - Medications Medications: Current Medications Aspirin (Ecotrin) 81 mg PO DAILY [facility] Last Admin: 02/24/18 09:45 Dose: 81 mg Betamethasone/Clotrimazole (Lotrisone) 0 gm TOP TID [facility] Last Admin: 02/24/18 09:46 Dose: 1 applic Bisoprolol Fumarate (Zebeta) 5 mg PO BID [facility] Last Admin: 02/24/18 09:45 Dose: 5 mg Folic Acid (Folic Acid) 1 mg PO DAILY [facility] Last Admin: 02/24/18 09:45 Dose: 1 mg Hydralazine HCl (Apresoline) 50 mg PO BID [facility] Last Admin: 02/24/18 09:45 Dose: 50 mg Hydrochlorothiazide (Microzide) 12.5 mg PO BID [facility] Last Admin: 02/24/18 09:45 Dose: 12.5 mg Piperacillin Sod/Tazobactam (Sod 3.375 gm/ Sodium Chloride) 100 mls @ 200 mls/ hr IVPB Q8H [facility] PRN Reason: Protocol Last Admin: 02/24/18 08:52 Dose: 200 mls/hr Vancomycin HCl 1,350 mg/ (Sodium Chloride) 500 mls @ 220 mls/hr IVPB Q12H [facility] PRN Reason: Protocol Last Admin: 02/24/18 01:36 Dose: 220 mls/hr Insulin Aspart (Novolog) 0 unit SC ACHS [facility] PRN Reason: Protocol Last Admin: 02/24/18 07:41 Dose: Not Given Lactulose (Enulose) 20 gm PO Q4H [facility] Last Admin: 02/24/18 07:40 Dose: Not Given Losartan Potassium (Cozaar) 50 mg PO BID [facility] Last Admin: 02/24/18 09:45 Dose: 50 mg Mupirocin (Bactroban Ointment) 0 gm TOP BID [facility] Last Admin: 02/24/18 09:46 Dose: 1 applic Ondansetron HCl (Zofran Tab) 4 mg PO Q6H [facility] PRN Reason: Nausea/Vomiting Last Admin: 02/22/18 10:35 Dose: 4 mg Pantoprazole Sodium (Protonix Ec Tab) 40 mg PO DAILY [facility] Last Admin: 02/24/18 09:45 Dose: 40 mg Rosuvastatin Calcium (Crestor) 10 mg PO HS [facility] Last Admin: 02/23/18 21:46 Dose: 10 mg Tamsulosin HCl (Flomax) 0.4 mg PO BID [facility] Last Admin: 02/24/18 09:45 Dose: 0.4 mg - Labs Labs: 02/22/18 07:38 02/23/18 07:42 PT 13.9 SECONDS (9.7-12.2) H 02/16/18 12:00 INR 1.3 02/16/18 12:00 APTT 34 SECONDS (21-34) 02/16/18 12:00 - Head Exam Head Exam: ATRAUMATIC - Eye Exam Eye Exam: Normal appearance - ENT Exam ENT Exam: Mucous Membranes Dry - Respiratory Exam Respiratory Exam: NORMAL BREATHING PATTERN - Cardiovascular Exam Cardiovascular Exam: +S1, +S2 - GI/Abdominal Exam GI & Abdominal Exam: Normal Bowel Sounds Assessment and Plan (1) Non-small cell lung cancer (NSCLC) Assessment & Plan: stage IV chemotherapy on hold until infection clears Status: Acute
--- NOTE | 2018-02-24 11:38 | CP.PCM.PN ---
Subjective - Date & Time of Evaluation Date of Evaluation: 02/24/18 Time of Evaluation: 11:00 - Subjective Subjective: No complaints. Objective - Vital Signs/Intake and Output Vital Signs (last 24 hours): Temp Pulse Resp BP Pulse Ox 98 F 60 20 160/82 H 97 02/24/18 08:44 02/24/18 08:44 02/24/18 08:44 02/24/18 08:44 02/24/18 08:44 Intake and Output: 02/24/18 02/24/18 06:59 18:59 Intake Total 400 800 Balance 400 800 - Medications Medications: Current Medications Aspirin (Ecotrin) 81 mg PO DAILY [facility] Last Admin: 02/24/18 09:45 Dose: 81 mg Betamethasone/Clotrimazole (Lotrisone) 0 gm TOP TID [facility] Last Admin: 02/24/18 09:46 Dose: 1 applic Bisoprolol Fumarate (Zebeta) 5 mg PO BID [facility] Last Admin: 02/24/18 09:45 Dose: 5 mg Folic Acid (Folic Acid) 1 mg PO DAILY [facility] Last Admin: 02/24/18 09:45 Dose: 1 mg Hydralazine HCl (Apresoline) 50 mg PO BID [facility] Last Admin: 02/24/18 09:45 Dose: 50 mg Hydrochlorothiazide (Microzide) 12.5 mg PO BID [facility] Last Admin: 02/24/18 09:45 Dose: 12.5 mg Piperacillin Sod/Tazobactam (Sod 3.375 gm/ Sodium Chloride) 100 mls @ 200 mls/ hr IVPB Q8H [facility] PRN Reason: Protocol Last Admin: 02/24/18 08:52 Dose: 200 mls/hr Vancomycin HCl 1,350 mg/ (Sodium Chloride) 500 mls @ 220 mls/hr IVPB Q12H [facility] PRN Reason: Protocol Last Admin: 02/24/18 01:36 Dose: 220 mls/hr Insulin Aspart (Novolog) 0 unit SC ACHS [facility] PRN Reason: Protocol Last Admin: 02/24/18 07:41 Dose: Not Given Lactulose (Enulose) 20 gm PO Q4H [facility] Last Admin: 02/24/18 07:40 Dose: Not Given Losartan Potassium (Cozaar) 50 mg PO BID [facility] Last Admin: 02/24/18 09:45 Dose: 50 mg Mupirocin (Bactroban Ointment) 0 gm TOP BID [facility] Last Admin: 02/24/18 09:46 Dose: 1 applic Ondansetron HCl (Zofran Tab) 4 mg PO Q6H [facility] PRN Reason: Nausea/Vomiting Last Admin: 02/22/18 10:35 Dose: 4 mg Pantoprazole Sodium (Protonix Ec Tab) 40 mg PO DAILY [facility] Last Admin: 02/24/18 09:45 Dose: 40 mg Rosuvastatin Calcium (Crestor) 10 mg PO HS [facility] Last Admin: 02/23/18 21:46 Dose: 10 mg Tamsulosin HCl (Flomax) 0.4 mg PO BID [facility] Last Admin: 02/24/18 09:45 Dose: 0.4 mg - Labs Labs: 02/22/18 07:38 02/23/18 07:42 PT 13.9 SECONDS (9.7-12.2) H 02/16/18 12:00 INR 1.3 02/16/18 12:00 APTT 34 SECONDS (21-34) 02/16/18 12:00 - Head Exam Head Exam: ATRAUMATIC - Eye Exam Eye Exam: Normal appearance - ENT Exam ENT Exam: Mucous Membranes Dry - Respiratory Exam Respiratory Exam: NORMAL BREATHING PATTERN - Cardiovascular Exam Cardiovascular Exam: +S1, +S2 - GI/Abdominal Exam GI & Abdominal Exam: Normal Bowel Sounds Assessment and Plan (1) Non-small cell lung cancer (NSCLC) Assessment & Plan: stage IV outpatient treatment chemotherapy on hold until clear of infection Status: Acute
[2018-02-25] MEDS: (Novolog) Insulin Aspart, Recombinant 100 u/ml 10 ml vial SC SCH ×2 (07:24→11:36)
[2018-02-25 07:53] LABS: BASO % 0.7 % (0.0-2.0); EOS # 0.2 K/uL (0.0-0.7); EOS % 3.3 % (0.0-4.0); HEMOGLOBIN 13.5 g/dL (12.0-18.0); LYMPH % 15.9 % (20.0-40.0); MEAN CELL VOLUME 95.2 fL (80.0-94.0); MEAN CORPUSCULAR HEMOGLOBIN 32.7 pg (27.0-31.0); MEAN CORPUSCULAR HGB CONC 34.4 g/dL (33.0-37.0); MEAN PLATELET VOLUME 8.8 fL (7.2-11.7); MONO # 0.8 K/uL (0.0-0.8); NEUT # 4.3 K/uL (1.8-7.0); NEUT % 68.1 % (50.0-75.0); NRBC % 0.1 % (0.0-2.0); RBC 4.11 Mil/uL (4.40-5.90); RED CELL DISTRIBUTION WIDTH 17.4 % (11.5-14.5); WHITE BLOOD COUNT 6.4 K/uL (4.8-10.8)
[2018-02-25 08:05] LABS: BLOOD UREA NITROGEN 10 mg/dL (9-20); CALCIUM 9.6 mg/dl (8.6-10.4); GFR NON-AFRICAN AMERICAN > 60
[2018-02-25 08:24] VITALS: BP 142/78; PULSE 62; RESP 20; TEMP 98.1; O2SAT 96
[2018-02-25] MEDS ORDERED: Saccharomyces Boulardi 250 mg Cap PO SCH (10:00)
[2018-02-25] MEDS: Pantoprazole 40 mg EC Tab PO SCH (10:02)
[2018-02-25] MEDS: Clotrimazole/Betamethasone Cream(15 gm) TOP SCH (10:06)
--- NOTE | 2018-02-25 10:14 | PN ---
Copied To: Lucero Leonard MD Attending MD: Lucero Leonard MD DATE: 02/24/2018 SUBJECTIVE: The patient was seen, 02/24/2018. The patient's left lower extremity redness continued to improve. OBJECTIVE: VITAL SIGNS: Blood pressure was 160/82, temperature 98, respiratory rate 20, and pulse 60. HEENT: Pupils equal and reactive to light. Normal-appearing mucosa of the conjunctivae, oropharynx, and nasal membrane mucosa. NECK: Supple. No JVD. No carotid bruit. No lymph node. No thyromegaly. CHEST AND LUNGS: Bilateral symmetrical expansion. Good air exchange. No rales, no rhonchi. CARDIOVASCULAR SYSTEM: PMI not localized. S1, S2. No additional sounds. ABDOMEN: Normoactive bowel sounds. No tenderness. No organomegaly. No masses. EXTREMITIES: No cyanosis, no clubbing, no edema. Left lower extremity redness is improving. INTERNAL REVENUE SERVICE AGENT: Alert, awake, oriented x3. No neurological deficit could be appreciated. ASSESSMENT: 1. Cellulitis of the left lower extremity, mixed metastatic lung cancer. 2. Type 2 diabetes mellitus. 3. Hypertension. PLAN: Continue antibiotics as per ID, and we will discharge on doxycycline as 100 mg twice a day as per ID recommendations. We will follow up as an outpatient. Lucero Leonard MD
--- NOTE | 2018-02-25 15:51 | CP.PCM.PN ---
Subjective - Date & Time of Evaluation Date of Evaluation: 02/25/18 Time of Evaluation: 11:00 - Subjective Subjective: alert, awake, ambulatory. Objective - Vital Signs/Intake and Output Vital Signs (last 24 hours): Temp Pulse Resp BP Pulse Ox 98.1 F 62 20 142/78 96 02/25/18 08:21 02/25/18 08:21 02/25/18 08:21 02/25/18 08:21 02/25/18 08:21 Intake and Output: 02/25/18 02/25/18 06:59 18:59 Intake Total 500 900 Balance 500 900 - Labs Labs: 02/25/18 07:37 02/25/18 07:37 PT 13.9 SECONDS (9.7-12.2) H 02/16/18 12:00 INR 1.3 02/16/18 12:00 APTT 34 SECONDS (21-34) 02/16/18 12:00 Assessment and Plan - Assessment and Plan (Free Text) Assessment: Patient admitted with left leg redness and swelling, seen and examined. Alert and orientedx3, leg pain and swelling is improving. Discussed with DR Leonard, plan to discharge home on po doxycycline for [address] Auguste. No acute distress.
--- NOTE | 2018-02-26 14:51 | DS ---
Copied To: Lucero Leonard MD Attending MD: Lucero Leonard MD REASON FOR ADMISSION: The patient was admitted for cellulitis of the left lower extremity. COURSE OF HOSPITALIZATION: The patient was admitted to medical floor and he had an ID consult done by Dr. Russell Auguste. The patient was treated with vancomycin, Zosyn, and clindamycin. The patient's symptoms gradually improved and the patient was discharged home to continue doxycycline 100 mg twice a day for 10 days. The patient had also Oncology consultation done by Dr. Angelo Gallo due to metastatic non-small cell lung cancer. The patient has been on chemotherapy every 3 weeks. The patient was discharged home in a stable condition to continue the above oral antibiotics for another 10 days. FINAL DIAGNOSES: Cellulitis of the left lower extremity, metastatic non-small cell lung cancer, type 2 diabetes mellitus, hypertension, smoker. Lucero Leonard MD
--- NOTE | 2018-02-27 10:34 | VASCLAB ---
Date of service: 02/24/2018 PROCEDURE: Lower Extremity Venous Duplex Exam. HISTORY: LE swelling and redness PRIORS: None. TECHNIQUE: Bilateral common femoral, femoral, popliteal and posterior tibial, peroneal and great saphenous veins were evaluated. Flow was assessed with color Doppler, compressibility, assessment of phasic flow and augmentation response. Report prepared by Nacho Bell, BS, RVT FINDINGS: RIGHT: 1. Common Femoral Vein: 1.1. Compressibility - Fully compressible: Thrombus - None : Flow - Phasic: Augmentation -Normal: Reflux - None. 2. Femoral Vein: 2.1. Compressibility - Fully compressible: Thrombus - None : Flow - Phasic: Augmentation -Normal: Reflux - None. 3. Popliteal Vein: 3.1. Compressibility - Fully compressible: Thrombus - None : Flow - Phasic: Augmentation -Normal: Reflux - None. 4. Posterior Tibial Vein: 4.1. Compressibility - Fully compressible: Thrombus - None: Flow - Phasic: Augmentation -Normal: Reflux - None. 5. Peroneal Vein: 5.1. Compressibility - Fully compressible: Thrombus - None: Flow - Phasic: Augmentation -Normal: Reflux - None. 6. Great Saphenous Vein: 6.1. Compressibility - Fully compressible: Thrombus - None: Flow - Phasic: Augmentation - Normal: Reflux - None. LEFT: 1. Common Femoral Vein: 1.1. Compressibility - Fully compressible: Thrombus - None: Flow - Phasic: Augmentation -Normal: Reflux - None. 2. Femoral Vein: 2.1. Compressibility - Fully compressible: Thrombus - None: Flow - Phasic: Augmentation -Normal: Reflux - None. 3. Popliteal Vein: 3.1. Compressibility - Fully compressible: Thrombus - None : Flow - Phasic: Augmentation -Normal: Reflux - None. 4. Posterior Tibial Vein: 4.1. Compressibility - Fully compressible: Thrombus - None: Flow - Phasic: Augmentation -Normal: Reflux - None. 5. Peroneal Vein: 5.1. Compressibility - Fully compressible: Thrombus - None: Flow - Phasic: Augmentation -Normal: Reflux - None. 6. Great Saphenous Vein: 6.1. Compressibility - Fully compressible: Thrombus - None: Flow - Phasic: Augmentation - Normal: Reflux - None. OTHER FINDINGS: Right: None significant. Left: None significant. IMPRESSION: Right: No evidence of deep or superficial vein thrombosis of the right lower extremity. Normal valve function noted of the right side. Left: No evidence of deep or superficial vein thrombosis of the left lower extremity. Normal valve function noted of the left side.
== END 2018-02-25 13:15 | disposition home or self-care (01) | DRG 603 ==
LOC: C.ER 11:20 → C.9E 12:39 → C.6T 14:13 → C.3T 02-21 11:19
PROVIDERS: ADMIT Internal Medicine; ATTEND Internal Medicine
DX: L03.116 Cellulitis of left lower limb (principal); C34.90 Malignant neoplasm of unspecified part of unspecified bronchus or lung; C79.51 Secondary malignant neoplasm of bone; E11.65 Type 2 diabetes mellitus with hyperglycemia; N48.1 Balanitis; I10 Essential (primary) hypertension; E66.01 Morbid (severe) obesity due to excess calories; K21.9 Gastro-esophageal reflux disease without esophagitis; Z68.41 Body mass index [BMI] 40.0-44.9, adult; K59.00 Constipation, unspecified; F17.210 Nicotine dependence, cigarettes, uncomplicated

== ENCOUNTER 2018-03-23 09:12 | Inpatient (IN) | payer OTHER ==
--- NOTE | 2018-03-23 10:00 | C.PDOC ---
History Of Present Illness 63 y/o male with history of Lung CA presents to ED sent by Dr. Auguste for further evaluation of left leg cellulitis and to rule out DVT. At ED patient c/o left leg redness, swelling and pain since 02/03/18. Patient has had Outpatient antibiotics and inpatient IV antibiotics with no improvement, currently denies fever, chills or change in sensation. Dr Leonard, PMD Dr Auguste, ID Dr. Gallo oncologist Time Seen by Provider: 03/23/18 09:20 Chief Complaint (Nursing): Lower Extremity Problem/Injury History Per: Patient History/Exam Limitations: no limitations Onset/Duration Of Symptoms: Days Current Symptoms Are (Timing): Still Present Past Medical History Reviewed: Historical Data, Nursing Documentation, Vital Signs Vital Signs: Last Vital Signs Temp 98.8 F 03/23/18 11:48 Pulse 66 03/23/18 11:48 Resp 18 03/23/18 11:48 BP 143/84 03/23/18 11:48 Pulse Ox 95 03/23/18 12:02 - Medical History PMH: HTN Surgical History: No Surg Hx - [facility] Procedures COMPUTERIZED TOMOGRAPHY (CT SCAN) OF BILATERAL LUNGS (10/29/17) EXCISION OF ESOPHAGUS, ENDO, DIAGN (10/29/17) EXCISION OF RIGHT LUNG, PERCUTANEOUS APPROACH, DIAGNOSTIC (10/29/17) EXCISION OF STOMACH, ENDO, DIAGN (10/29/17) OTHER LOCAL DESTRUC SKIN (11/08/13) Family History: States: No Known Family Hx - Social History Hx Alcohol Use: No Hx Substance Use: No - Immunization History Hx Tetanus Toxoid Vaccination: No Hx Influenza Vaccination: No Hx Pneumococcal Vaccination: No Review Of Systems Constitutional: Negative for: Fever, Chills Cardiovascular: Negative for: Chest Pain Respiratory: Negative for: Cough, Shortness of Breath Musculoskeletal: Positive for: Leg Pain (swelling) Skin: Positive for: Other (redness to left leg). Negative for: Rash Physical Exam - Physical Exam Appears: Non-toxic, No Acute Distress Skin: Warm, Dry, Other (Left leg: Distal anterior tibial region, bright blanching erythema which is circumferential. Tactile warmth. Left foot with hyperkeratosis and scaling) Head: Atraumatic, Normacephalic Eye(s): bilateral: Normal Inspection Oral Mucosa: Moist Neck: Supple Cardiovascular: Rhythm Regular, No Murmur Respiratory: Normal Breath Sounds, No Rales, No Rhonchi, No Wheezing Gastrointestinal/Abdominal: Soft, No Tenderness, No Guarding, No Rebound Extremity: Pedal Edema (bilateral), Calf Tenderness (left), No Deformity Neurological/Psych: Oriented x3, Normal Speech, Normal Motor, Normal Sensation Gait: Steady ED Course And Treatment - Laboratory Results Result Diagrams: 03/23/18 10:05 03/23/18 10:05 Lab Interpretation: No Acute Changes O2 Sat by Pulse Oximetry: 95 (RA) Pulse Ox Interpretation: Normal Medical Decision Making Medical Decision Making: Impression: Left leg pain, cellulitis Plan: * Blood work * UA * Left knee xray * Doppler Progress: Patient sent with note from Dr. Auguste for admission to Dr. Leonard Spoke with Dr Auguste who requests IV antibiotics, orders placed Spoke with Dr Leonard who accepts admission Disposition Counseled Patient/Family Regarding: Diagnosis, Need For Followup - Disposition Disposition: HOSPITALIZED Disposition Time: 10:50 Condition: STABLE - POA Present On Arrival: None - Clinical Impression Clinical Impression: Cellulitis of left leg, Edema leg - PA / METER TECHNICIAN / Resident Statement MD/DO has reviewed & agrees with the documentation as recorded. - Scribe Statement The provider has reviewed the documentation as recorded by the Elke Morelos All medical record entries made by the Elke were at my direction and personally dictated by me. I have reviewed the chart and agree that the record accurately reflects my personal performance of the history, physical exam, medical decision making, and the department course for this patient. I have also personally directed, reviewed, and agree with the discharge instructions and disposition. Decision To Admit - Pt Status Changed To: Hospital Disposition Of: Inpatient - Admit Certification Admit to Inpatient:: After my assessment, the patient will require hospitalization for at least two midnights. This is because of the severity of symptoms shown, intensity of services needed, and/or the medical risk in this patient being treated as an outpatient. - InPatient: Physician Admission Certification: I certify that this patient requires 2 or more midnights of care for the following reason:: Patient with PMH DM and Lung Cancer with left leg cellulitis, not improving with oral antibiotics. - . Bed Request Type: Regular Admitting Physician: Lucero Leonard Patient Diagnosis: Cellulitis of left leg, Edema leg
[2018-03-23 10:09] LABS: BASO # 0.1 K/uL (0.0-0.2); BASO % 1.4 % (0.0-2.0); EOS # 0.3 K/uL (0.0-0.7); EOS % 5.1 % (0.0-4.0); HEMOGLOBIN 14.2 g/dL (12.0-18.0); LYMPH % 20.9 % (20.0-40.0); MEAN CORPUSCULAR HEMOGLOBIN 33.1 pg (27.0-31.0); MEAN CORPUSCULAR HGB CONC 34.4 g/dL (33.0-37.0); MEAN PLATELET VOLUME 9.6 fL (7.2-11.7); MONO # 0.5 K/uL (0.0-0.8); MONO % 10.2 % (0.0-10.0); NEUT # 3.1 K/uL (1.8-7.0); NEUT % 62.4 % (50.0-75.0); NRBC % 0.1 % (0.0-2.0); RBC 4.3 Mil/uL (4.40-5.90); RED CELL DISTRIBUTION WIDTH 15.7 % (11.5-14.5); WHITE BLOOD COUNT 4.9 K/uL (4.8-10.8)
[2018-03-23 10:17] LABS: INR 1.1
[2018-03-23 10:31] LABS: ALB/GLOB RATIO 1.1 (1.0-2.1); ALBUMIN 4.1 g/dL (3.5-5.0); ALT/SGPT 48 U/L (21-72); AST/SGOT 38 U/L (17-59); B-TYPE NATRIURETIC PEPTIDE 54.1 pg/mL (0-900); BLOOD UREA NITROGEN 13 mg/dL (9-20); CALCIUM 9.3 mg/dl (8.6-10.4); GFR NON-AFRICAN AMERICAN > 60
[2018-03-23] MEDS ORDERED: Vancomycin 1 GM 1 GM/250 ML BAG IVPB ONE (10:57)
[2018-03-23] MEDS ORDERED: Vancomycin 1 GM 1 GM/250 ML BAG IV SCH (11:00)
[2018-03-23] MEDS: Piperacill/Tazo 2.25gm in Dex 2.25 GM/50 ML BAG IVPB SCH ×3 (11:29→22:04)
[2018-03-23 11:30] LABS: SQUAMOUS EPITHIAL 4 /hpf (0-5); URINE BACTERIA RARE (<OCC); URINE BILIRUBIN NEGATIVE (NEGATIVE); URINE BLOOD NEGATIVE (NEGATIVE); URINE CLARITY Clear (Clear); URINE COLOR Yellow (YELLOW); URINE GLUCOSE (UA) NORMAL (Normal); URINE LEUKOCYTE ESTERASE NEG Leu/uL (Negative); URINE PROTEIN NEGATIVE (NEGATIVE); URINE UROBILINOGEN NORMAL mg/dL (0.2-1.0)
--- NOTE | 2018-03-23 12:45 | CP.PCM.CON ---
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 Patient has been on chemotherapy last dose of chemotherapy third dose on January. Patient recently hospitalized at [facility] 02/16/18 to 02/25/18 with left lower extremity cellulitis and erysipelas which has been slowly improving with IV and by mouth antibiotics. Patient was discharged on 02/25/18 with 10 days of doxycycline which patient completed-f/u wih po levaquin 750mg x 10 days. Patient came to the office for follow-up on his blood works and c/o increased swelling and edema and PAIN in the LEFT CALF. Paient c/o difficuly ambulaing and standing for long period and had to sit down.Patient therefore was referred to the ER for further evaluation and to rule out underlying DVT. Patient denied any fever or chills but states his appetite is poor and he feels weak. PATIENT ANXIOUS TO GET HIS CHEMOTHERAPY. As per his oncologist patient to clear up his infection before next chemotherapy. PMH: tobacco abuse, HTN, DM, GERD,MORBID OBESITY , recently diagnosed with small cell lung CA stage IV with metastasis showing lytic lesion at L5 in September 2017. Past surgical history: Neck and knee surgery Family history: Mother had cervical cancer Social history: 1/2ppd x 40 years, denies alcohol, and illicit drug use.PATIENT STATES HE HAS QUIT SMOKING SINCE LAST 3 MONTHS. Allergies: NKA. Exposure History: Not exposed to allergens and blood transfusion. 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 - Immunization History Hx Tetanus Toxoid Vaccination: No Hx Influenza Vaccination: No Hx Pneumococcal Vaccination: No Review of Systems - Constitutional Constitutional: Weakness. absent: Chills, Fever - EENT Eyes: absent: Change in Vision Ears: absent: Dizziness Nose/Mouth/Throat: absent: Nasal Congestion, Mouth Lesions, Odynophagia, Sore Throat - Cardiovascular Cardiovascular: Leg Edema. absent: Chest Pain, Leg Ulcers - Respiratory Respiratory: absent: Cough - Gastrointestinal Gastrointestinal: absent: Abdominal Pain, Diarrhea, Nausea, Odynophagia, Vomiting - Musculoskeletal Musculoskeletal: As Per HPI (LEFT LOWER EXTREMITY PAIN ON AMBULATION/AND AT REST.) - Integumentary Integumentary: Rash (ERYTHEMA FROM ANKLE TO BELOW THE KNEE LEFT LOWER EXTREMITY WITH DEMARCATION BORDER) - Neurological Neurological: Abnormal Gait. absent: Headaches - Endocrine Endocrine: As Per HPI (MORBID OBESITY.), Fatigue - Hematologic/Lymphatic Hematologic: As Per HPI. absent: Lymphadenopathy Past Patient History - Past Medical History & Family History Past Medical History?: Yes - Past Social History Smoking Status: Former Smoker - CARDIAC Hx Hypertension: Yes - PULMONARY Hx Respiratory Disorders: No - NEUROLOGICAL Hx Neurological Disorder: No - HEENT Hx HEENT Problems: Yes Other/Comment: poor visio - RENAL Hx Chronic Kidney Disease: No - ENDOCRINE/METABOLIC Hx Endocrine Disorders: Yes Hx Diabetes Mellitus Type 2: Yes (diet controlled) - HEMATOLOGICAL/ONCOLOGICAL Hx Blood Disorders: No Hx Cancer: Yes (LUNG, SPINE PER PATIENT) - INTEGUMENTARY Hx Dermatological Problems: Yes Other/Comment: athlete's foot - MUSCULOSKELETAL/RHEUMATOLOGICAL Hx Falls: No - GASTROINTESTINAL Hx Gastrointestinal Disorders: Yes Hx Constipation: Yes Hx Gastroesophageal Reflux: Yes Other/Comment: Acid reflux - GENITOURINARY/GYNECOLOGICAL Hx Genitourinary Disorders: Yes Hx Prostate Problems: Yes - PSYCHIATRIC Hx Substance Use: No - SURGICAL HISTORY Hx Surgeries: Yes Other/Comment: cyst removed from neck, Lt. knee surgery; L 5th digit tendon repair,lung bx - ANESTHESIA Hx Anesthesia: Yes Hx Anesthesia Reactions: Yes (nausea,vomitting) Meds Allergies/Adverse Reactions: Allergies Allergy/AdvReac Type Severity Reaction Status Date / Time No Known Allergies Allergy Verified 03/23/18 09:23 - Medications Medications: Current Medications Acetaminophen (Tylenol 325mg Tab) 650 mg PO Q6 PRN PRN Reason: Fever >100.4 F Piperacillin Sod/Tazobactam Sod (Zosyn 2.25 Gm Iv Premix) 2.25 gm in 50 mls @ 100 mls/hr IVPB Q6H LILLIAM PRN Reason: Protocol Last Admin: 03/23/18 11:29 Dose: 100 mls/hr Vancomycin HCl (Vancomycin 1gm In Normal Saline Addvantage) 1 gm in 250 mls @ 166.667 mls/hr IV Q12H LILLIAM PRN Reason: Protocol Last Admin: 03/23/18 11:30 Dose: 166.667 mls/hr Physical Exam - Constitutional Appears: No Acute Distress - Head Exam Head Exam: NORMAL INSPECTION - Eye Exam Eye Exam: EOMI, PERRL - ENT Exam ENT Exam: Mucous Membranes Dry, Normal Oropharynx - Neck Exam Neck exam: Positive for: Normal Inspection - Respiratory Exam Respiratory Exam: Clear to Auscultation Bilateral, NORMAL BREATHING PATTERN - Cardiovascular Exam Cardiovascular Exam: REGULAR RHYTHM, +S1, +S2 - GI/Abdominal Exam GI & Abdominal Exam: Normal Bowel Sounds, Soft. absent: Organomegaly - Extremities Exam Extremities exam: Positive for: calf tenderness (LEFT CALF TENDERNESS), normal capillary refill (ERYTHEMA AND SWELLING LEFT LOWER EXTREMITY WITH ERYTHEMA FROM ANKLE TO BELOW THE KNEE. tENDERNESS ON PALPATION.), pedal edema, pedal pulses present - Neurological Exam Neurological exam: Alert, CN II-XII Intact, Oriented x3, Reflexes Normal - Psychiatric Exam Psychiatric exam: Normal Mood - Skin Skin Exam: Normal Color, Rash (LEFT LOWER EXTREMITY), Warm Results - Vital Signs Recent Vital Signs: Last Vital Signs Temp 98.8 F 03/23/18 11:48 Pulse 66 03/23/18 11:48 Resp 18 03/23/18 11:48 BP 143/84 03/23/18 11:48 Pulse Ox 95 03/23/18 12:02 - Labs Result Diagrams: 03/23/18 10:05 03/23/18 10:05 Labs: Laboratory Results - last 24 hr 03/23/18 03/23/18 03/23/18 10:05 10:05 10:05 WBC 4.9 RBC 4.30 L Hgb 14.2 Hct 41.3 MCV 96.0 H MCH 33.1 H MCHC 34.4 RDW 15.7 H Plt Count 200 MPV 9.6 Neut % (Auto) 62.4 Lymph % (Auto) 20.9 [place] % (Auto) 10.2 H Eos % (Auto) 5.1 H Baso % (Auto) 1.4 Neut # (Auto) 3.1 Lymph # (Auto) 1.0 [place] # (Auto) 0.5 Eos # (Auto) 0.3 Baso # (Auto) 0.1 PT 12.0 INR 1.1 APTT 36 H Sodium 142 Potassium 4.1 Chloride 102 Carbon Dioxide 27 Anion Gap 17 BUN 13 Creatinine 0.8 Est GFR ( Amer) > 60 Est GFR (Non-Af Amer) > 60 Random Glucose 166 H Calcium 9.3 Total Bilirubin 0.6 AST 38 ALT 48 Alkaline Phosphatase 76 NT-Pro-B Natriuret Pep 54.1 Total Protein 7.9 Albumin 4.1 Globulin 3.8 Albumin/Globulin Ratio 1.1 Urine Color Urine Clarity Urine pH Ur Specific [place] Urine Protein Urine Glucose (UA) Urine Ketones Urine Blood Urine Nitrate Urine Bilirubin Urine Urobilinogen Ur Leukocyte Esterase Urine WBC (Auto) Urine RBC (Auto) Ur Squamous Epith Cells Urine Bacteria 03/23/18 11:12 WBC RBC Hgb Hct MCV MCH MCHC RDW Plt Count MPV Neut % (Auto) Lymph % (Auto) [place] % (Auto) Eos % (Auto) Baso % (Auto) Neut # (Auto) Lymph # (Auto) [place] # (Auto) Eos # (Auto) Baso # (Auto) PT INR APTT Sodium Potassium Chloride Carbon Dioxide Anion Gap BUN Creatinine Est GFR ( Amer) Est GFR (Non-Af Amer) Random Glucose Calcium Total Bilirubin AST ALT Alkaline Phosphatase NT-Pro-B Natriuret Pep Total Protein Albumin Globulin Albumin/Globulin Ratio Urine Color Yellow Urine Clarity Clear Urine pH 6.0 Ur Specific [place] 1.021 Urine Protein Negative Urine Glucose (UA) Normal Urine Ketones Negative Urine Blood Negative Urine Nitrate Negative Urine Bilirubin Negative Urine Urobilinogen Normal Ur Leukocyte Esterase Neg Urine WBC (Auto) 2 Urine RBC (Auto) < 1 Ur Squamous Epith Cells 4 Urine Bacteria Rare - Imaging and Cardiology XRAY L. TIBIA AND FIBULA Status: Report reviewed by me Assessment & Plan (1) Erysipelas of lower extremity Assessment and Plan: pancultures ESR CRP. MRSA SCREEN. DUPLEX VENOUS LLE R/O DVT D DIMER GOT ONE DOSE iv zOSYN 3.375 EVERY 8 HOURLY 02/20/18 F/U W zOSYN 2.25 IVPB q6 HOURLY. CONTINUE iv VANCOMYCIN 1 G EVERY 12 HOURLY. 02/20/18 fOLLOW-UP VANCO TROUGH PRIOR TO THE FOURTH DOSE AND KEEP BETWEEN 10 AND 20. F/U RENAL FUNCTIONS CLOSELY. WILL FOLLOW ALONG WITH YOU. Status: Acute Status: Acute (2) Diabetes mellitus Status: Acute (3) HTN (hypertension) Status: Acute (4) Non-small cell lung cancer (NSCLC) Assessment and Plan: patient on chemotherapy for lung cancer. . Last chemotherapy dose on January 30, 2018. Status: Acute (5) Obesity, morbid Status: Acute
--- NOTE | 2018-03-23 13:35 | RAD ---
Date of service: 03/23/2018 PROCEDURE: Radiographs of the left tibia and fibula. HISTORY: leg pain COMPARISON: None available. TECHNIQUE: Frontal and lateral views obtained. FINDINGS: BONES: No acute fracture or destructive bony lesion identified. JOINT SPACES: Unremarkable. OTHER FINDINGS: Soft tissues may reflect cellulitis given diffuse reticular changes throughout subcutaneous fat. IMPRESSION: No fracture or dislocation appreciated related to the left tibia or fibula. Questionable cellulitis pattern as discussed above. Further clinical correlation advised.
[2018-03-23] MEDS ORDERED: oxyCODONE 5 mg Immediate Release Tab PO PRN (15:00)
--- NOTE | 2018-03-23 16:27 | VASCLAB ---
Date of service: 03/23/2018 PROCEDURE: Left Lower Extremity Venous Duplex Exam. HISTORY: Left calf pain, R/O DVT PRIORS: None. TECHNIQUE: Left common femoral, femoral, popliteal and posterior tibial, peroneal and great saphenous veins were evaluated. Flow was assessed with color Doppler, compressibility, assessment of phasic flow and augmentation response. Report prepared by EBONY Ramirez FINDINGS: LEFT: 1. Common Femoral Vein: 1.1. Compressibility - Fully compressible: Thrombus - None : Flow - Phasic: Augmentation -Normal: Reflux - None. 2. Femoral Vein: 2.1. Compressibility - Fully compressible: Thrombus - None: Flow - Phasic: Augmentation -Normal: Reflux - None. 3. Popliteal Vein: 3.1. Compressibility - Fully compressible: Thrombus - None: Flow - Phasic: Augmentation -Normal: Reflux - None. 4. Posterior Tibial Vein: 4.1. Compressibility - Fully compressible: Thrombus - None: Flow - Phasic: Augmentation -Normal: Reflux - None. 5. Peroneal Vein: 5.1. Compressibility - Fully compressible: Thrombus - None: Flow - Phasic: Augmentation -Normal: Reflux - None. 6. Great Saphenous Vein: 6.1. Compressibility - Fully compressible: Thrombus - None: Flow - Phasic: Augmentation - Normal: Reflux - None. OTHER FINDINGS: IMPRESSION: No evidence of deep or superficial vein thrombosis of the left lower extremity with excellent venous flow. Normal valve function noted of the left side. Normal venous flow noted in the right common femoral vein.
[2018-03-23] MEDS: Vancomycin 1 GM in Sodium Chloride 0.9% 200 ML IVPB SCH (22:48)
--- NOTE | 2018-03-24 00:22 | HP ---
HISTORY OF PRESENT ILLNESS: This is a 63 years old male with history of multiple medical problems including metastatic cancer of lung, hypertension, type 2 diabetes mellitus, morbid obesity, smoker, was admitted through emergency room after referred by Infectious Disease specialist, Dr. Auguste due to non improvement rather worsening of the left leg cellulitis. The patient has been complaining of this since last admission when he was treated as an outpatient with Augmentin without response. The patient was admitted to the hospital for IV antibiotics and was discharged on p.o. antibiotics. The patient presented to the ID specialist for followup where he was found to have worsening of cellulitis, subsequently, the patient was referred to the emergency room for evaluation and admission. Other review of system is negative. ALLERGIES: NO KNOWN ALLERGY. MEDICATIONS: Reviewed and ordered as per MAR. SOCIAL HISTORY: Smoker. Denies EtOH or any substance abuse. FAMILY HISTORY Not contributory. PAST MEDICAL HISTORY: As above. PHYSICAL EXAMINATION: GENERAL: The patient was in bed, not in any cardiopulmonary distress. VITAL SIGNS: Blood pressure 143/84, temperature 98.8, respiratory rate 18 and pulse 66. HEENT: Pupils equal, reactive to light. Normal-appearing mucosa of the conjunctivae, oropharynx and nasal membrane mucosa. NECK: Supple. No JVD. No carotid bruit. No lymph node. No thyromegaly. CHEST AND LUNGS: Bilateral symmetrical expansion. Good air exchange. No rales, no rhonchi. CARDIOVASCULAR SYSTEM: PMI not localized. S1, S2. No additional sounds. ABDOMEN: Normoactive bowel sounds. No tenderness. No organomegaly. No masses. EXTREMITIES: No cyanosis, no clubbing. There is diffuse cellulitis of the left lower extremity. ENTERPRISE SALES EXECUTIVE: Alert, awake, oriented x3. No neurological deficit could be appreciated. ASSESSMENT: 1. Nonresolving cellulitis of the left lower extremity. 2. Metastatic cancer lung on chemotherapy. 3. Type 2 diabetes mellitus, hypertension, morbid obesity, smoker. PLAN: Continue antibiotics as ordered by Dr. Auguste. Resume the patient's home medications and Accu-Cheks with insulin coverage. Lucero Leonard MD
[2018-03-24] MEDS: Piperacill/Tazo 2.25gm in Dex 2.25 GM/50 ML BAG IVPB SCH ×4 (05:21→22:08)
[2018-03-24] MEDS: Vancomycin 1 GM in Sodium Chloride 0.9% 200 ML IVPB SCH ×2 (10:06→22:11)
[2018-03-24] MEDS: Enoxaparin 40 mg Syringe SC SCH (10:08)
--- NOTE | 2018-03-24 16:42 | CP.PCM.PN ---
Subjective - Date & Time of Evaluation Date of Evaluation: 03/24/18 Time of Evaluation: 16:42 - Subjective Subjective: CHIEF COMPLAINTS TODAY : AFEBRILE. LT. LE CELLULITUS/AND EDEMA +VE ROS. HEENT : N. Resp : No cough, wheezing ,pleuritic CP ,or hemoptysis Cardio : No anginal CP, PND, orthopnea, palpitation GI : No abd.pain, n/v ,diarrhea or GI bleeding . 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 Musculoskel : No joint swelling , Derm : CELLULITIS LLE /EDEMA+VE Psych : Normal affect. Ext : No swelling ,calf pain PE. Pt. is alert awake in no distress. V.S As noted in the chart Head ,ear nose,throat and eyes : Normal. Neck : Supple with normal carotids. Lungs: Clear air entry. Heart : S1 & S2 normal with S4. No murmur. Abd : Soft non tender with normal bowel sounds. Neuro : Moves all ext. with no localized deficit. Ext :Non tender calves CELLULITIS LLE /EDEMA+VE Derm : No rashes or decubitus ulcer. LABS/RADIOLOGY: REVIEWED Objective - Vital Signs/Intake and Output Vital Signs (last 24 hours): Temp Pulse Resp BP Pulse Ox 98.2 F 71 20 135/76 95 03/24/18 15:00 03/24/18 15:00 03/24/18 15:00 03/24/18 15:00 03/24/18 15:00 Intake and Output: 03/24/18 03/24/18 06:59 18:59 Intake Total 230 Balance 230 - Medications Medications: Current Medications Acetaminophen (Tylenol 325mg Tab) 650 mg PO Q6 PRN PRN Reason: Fever >100.4 F Aspirin (Ecotrin) 81 mg PO DAILY [facility] Last Admin: 03/24/18 10:08 Dose: 81 mg Bisoprolol Fumarate (Zebeta) 5 mg PO BID [facility] Last Admin: 03/24/18 10:09 Dose: 5 mg Enoxaparin Sodium (Lovenox) 40 mg SC DAILY [facility] Last Admin: 03/24/18 10:08 Dose: 40 mg Folic Acid (Folic Acid) 1 mg PO DAILY [facility] Last Admin: 03/24/18 10:08 Dose: 1 mg Hydralazine HCl (Apresoline) 50 mg PO BID [facility] Last Admin: 03/24/18 10:08 Dose: 50 mg Piperacillin Sod/Tazobactam Sod (Zosyn 2.25 Gm Iv Premix) 2.25 gm in 50 mls @ 100 mls/hr IVPB Q6H LILLIAM PRN Reason: Protocol Last Admin: 03/24/18 10:05 Dose: 100 mls/hr Vancomycin HCl 1 gm/ Sodium (Chloride) 200 mls @ 133.333 mls/hr IVPB Q12H LILLIAM PRN Reason: Protocol Last Admin: 03/24/18 10:06 Dose: 133.333 mls/hr Oxycodone HCl (Oxycodone Immediate Release Tab) 5 mg PO Q6H PRN PRN Reason: Pain, moderate (4-7) Pantoprazole Sodium (Protonix Inj) 40 mg IVP DAILY [facility] Last Admin: 03/24/18 10:08 Dose: 40 mg Pneumococcal Polyvalent Vaccine (Pneumovax 23 Vaccine) 0.5 ml IM .ONCE ONE Stop: 03/25/18 10:01 Tamsulosin HCl (Flomax) 0.4 mg PO DAILY [facility] Last Admin: 03/24/18 10:12 Dose: 0.4 mg - Labs Labs: 03/23/18 10:05 03/23/18 10:05 PT 12.0 SECONDS (9.7-12.2) 03/23/18 10:05 INR 1.1 03/23/18 10:05 APTT 36 SECONDS (21-34) H 03/23/18 10:05 Assessment and Plan (1) Erysipelas of lower extremity Assessment & Plan: GOT ONE DOSE iv zOSYN 3.375 EVERY 8 HOURLY 02/20/18 CONTINUE IV zOSYN 2.25 IVPB q6 HOURLY. CONTINUE iv VANCOMYCIN 1 G EVERY 12 HOURLY. 02/20/18 fOLLOW-UP VANCO TROUGH PRIOR TO THE FOURTH DOSE AND KEEP BETWEEN 10 AND 20. F/U RENAL FUNCTIONS CLOSELY. DUPLEX VENOUS -VE DVT. PT FOR CT RLE R/O GAS IN TISSUES VS ANY OSSEOUS PROCESS. Status: Acute (2) Diabetes mellitus Status: Acute (3) HTN (hypertension) Status: Acute (4) Non-small cell lung cancer (NSCLC) Status: Acute (5) Obesity, morbid Status: Acute
[2018-03-24] MEDS: Pantoprazole 40 mg EC Tab PO SCH (18:55)
--- NOTE | 2018-03-25 01:41 | PN ---
DATE: 03/24/2018 DAILY PROGRESS NOTE SUBJECTIVE: The patient is seen today, 03/24/2018. He has less pain and swelling of the left lower extremity. The patient is on both vancomycin and Zosyn as per ID. PHYSICAL EXAMINATION: VITAL SIGNS: Blood pressure is 135/76, temperature 98.2, respiratory rate 20, and pulse 71. HEENT: Pupils are equal and reactive to light. Normal-appearing mucosa of the conjunctivae, oropharynx, and nasal membrane mucosa. NECK: Supple. No JVD. No carotid bruit. No lymph nodes. No thyromegaly. CHEST AND LUNGS: Bilateral symmetrical expansion. Good air exchange. No rales. No rhonchi. CARDIOVASCULAR SYSTEM: PMI not localized. S1, S2. No additional sounds. ABDOMEN: Normoactive bowel sounds. No tenderness. No organomegaly. No masses. EXTREMITIES: Decreased swelling and redness of the left lower extremity. CENTRAL NERVOUS SYSTEM: Alert, awake, oriented x3. No neurological deficit could be appreciated. ASSESSMENT: 1. Cellulitis of the left lower extremity. 2. Metastatic cancer of lung. 3. Type 2 diabetes mellitus. 4. Hypertension. PLAN: We will order CT scan of the lower extremity and continue current medications including sliding scale with insulin coverage. Follow ID recommendations. Lucero Leonard MD
[2018-03-25] MEDS: Piperacill/Tazo 2.25gm in Dex 2.25 GM/50 ML BAG IVPB SCH ×4 (05:05→22:20)
[2018-03-25] MEDS: Enoxaparin 40 mg Syringe SC SCH (09:05)
[2018-03-25] MEDS: Pantoprazole 40 mg EC Tab PO SCH ×2 (09:06→17:39)
[2018-03-25] MEDS ORDERED: Pneumococcal 23-Valent Vaccine IM ONE (10:00)
--- NOTE | 2018-03-25 10:48 | CT ---
Date of service: 03/24/2018 PROCEDURE: CT of the Left lower extremity. HISTORY: chronic cellulitis on left leg COMPARISON: None available. TECHNIQUE: Contiguous axial images of the left lower extremity were obtained. Coronal and sagittal reformats were generated. Radiation dose: 246.[address] exam was performed using one or more of the following dose reduction techniques: Automated exposure control, adjustment of the mA and/or kV according to patient size, and/or use of iterative reconstruction technique. FINDINGS: BONES: There is no acute displaced fracture or bone destruction. Bone alignment is normal. There is diffuse bone demineralization. There are subarticular cystic changes in the medial tibial plateau related to degenerative osteoarthrosis. There is degenerative osteoarthrosis in the medial tarsal metatarsal joints. SOFT TISSUES: There is diffuse subcutaneous edema in the foot and leg and mild skin thickening. IMPRESSION: Findings are most compatible with cellulitis in the leg and foot. No drainable abscess or fluid collection. No CT evidence for osteomyelitis. A preliminary report was provided by [email or web address] services.
[2018-03-25] MEDS: Vancomycin 1 GM in Sodium Chloride 0.9% 200 ML IVPB SCH ×2 (11:23→22:58)
--- NOTE | 2018-03-25 23:09 | CP.PCM.PN ---
Subjective - Date & Time of Evaluation Date of Evaluation: 03/25/18 Time of Evaluation: 23:08 - Subjective Subjective: CHIEF COMPLAINTS TODAY : AFEBRILE. LT. LE CELLULITUS/AND EDEMA improving. ROS. HEENT : N. Resp : No cough, wheezing ,pleuritic CP ,or hemoptysis Cardio : No anginal CP, PND, orthopnea, palpitation GI : No abd.pain, n/v ,diarrhea or GI bleeding . DELINQUENCY COUNSELOR : No headache, vertigo, focal deficit. Musculoskel : No joint swelling , Derm : CELLULITIS LLE /EDEMA+ve improving Psych : Normal affect. Ext : No swelling ,calf pain PE. Pt. is alert awake in no distress. V.S As noted in the chart Head ,ear nose,throat and eyes : Normal. Neck : Supple with normal carotids. Lungs: Clear air entry. Heart : S1 & S2 normal with S4. No murmur. Abd : Soft non tender with normal bowel sounds. Neuro : Moves all ext. with no localized deficit. Ext :Non tender calves CELLULITIS LLE /EDEMA+VE IMPROVING Derm : No rashes or decubitus ulcer. LABS/RADIOLOGY: REVIEWED VANCO TROUGH 6.7 LOW. ( ON IV 1 GM IVPB Q 12HRLY. ) Objective - Vital Signs/Intake and Output Vital Signs (last 24 hours): Temp Pulse Resp BP Pulse Ox 99.2 F 60 20 149/83 98 03/25/18 15:00 03/25/18 15:00 03/25/18 15:00 03/25/18 15:00 03/25/18 15:00 Intake and Output: 03/25/18 03/26/18 18:59 06:59 Intake Total 840 600 Balance 840 600 - Medications Medications: Current Medications Acetaminophen (Tylenol 325mg Tab) 650 mg PO Q6 PRN PRN Reason: Fever >100.4 F Aspirin (Ecotrin) 81 mg PO DAILY [facility] Last Admin: 03/25/18 09:06 Dose: 81 mg Bisoprolol Fumarate (Zebeta) 5 mg PO BID [facility] Last Admin: 03/25/18 17:40 Dose: 5 mg Enoxaparin Sodium (Lovenox) 40 mg SC DAILY [facility] Last Admin: 03/25/18 09:05 Dose: 40 mg Folic Acid (Folic Acid) 1 mg PO DAILY [facility] Last Admin: 03/25/18 09:06 Dose: 1 mg Hydralazine HCl (Apresoline) 50 mg PO BID [facility] Last Admin: 03/25/18 17:39 Dose: 50 mg Piperacillin Sod/Tazobactam Sod (Zosyn 2.25 Gm Iv Premix) 2.25 gm in 50 mls @ 100 mls/hr IVPB Q6H [facility] PRN Reason: Protocol Last Admin: 03/25/18 22:20 Dose: 100 mls/hr Vancomycin HCl 1 gm/ Sodium (Chloride) 200 mls @ 133.333 mls/hr IVPB Q12H [facility] PRN Reason: Protocol Last Admin: 03/25/18 22:58 Dose: 133.333 mls/hr Oxycodone HCl (Oxycodone Immediate Release Tab) 5 mg PO Q6H PRN PRN Reason: Pain, moderate (4-7) Pantoprazole Sodium (Protonix Ec Tab) 40 mg PO BID [facility] Last Admin: 03/25/18 17:39 Dose: 40 mg Tamsulosin HCl (Flomax) 0.4 mg PO BID [facility] Last Admin: 03/25/18 17:40 Dose: 0.4 mg - Labs Labs: 03/23/18 10:05 03/23/18 10:05 PT 12.0 SECONDS (9.7-12.2) 03/23/18 10:05 INR 1.1 03/23/18 10:05 APTT 36 SECONDS (21-34) H 03/23/18 10:05 Assessment and Plan (1) Erysipelas of lower extremity Assessment & Plan: CT RT.LE CONSISTENT W CELLULITIS/STI . NO OSSEOUS PATHOLOGY. CONTINUE IV zOSYN 2.25 IVPB q6 HOURLY. INCREASE iv VANCOMYCIN 1350MG IVPB EVERY 12 HOURLY. 02/20/18. F/U VANCO TROUGH LEVEL PRIOR TO 4TH DOSE AND KEEP BETWEEN 10 - 20MG/ML F/U RENAL FUNCTIONS CLOSELY. F/U BLOOD WORKS. Status: Acute (2) Diabetes mellitus Status: Acute (3) HTN (hypertension) Status: Acute (4) Non-small cell lung cancer (NSCLC) Status: Acute (5) Obesity, morbid Status: Acute
[2018-03-26] MEDS: Piperacill/Tazo 2.25gm in Dex 2.25 GM/50 ML BAG IVPB SCH ×2 (05:40→11:45)
[2018-03-26 07:21] LABS: BASO % 0.6 % (0.0-2.0); EOS # 0.5 K/uL (0.0-0.7); EOS % 7.5 % (0.0-4.0); HEMOGLOBIN 14.2 g/dL (12.0-18.0); LYMPH # 1.1 K/uL (1.0-4.3); LYMPH % 17.8 % (20.0-40.0); MEAN CELL VOLUME 96.1 fL (80.0-94.0); MEAN CORPUSCULAR HGB CONC 34.4 g/dL (33.0-37.0); MEAN PLATELET VOLUME 9.3 fL (7.2-11.7); MONO # 0.6 K/uL (0.0-0.8); MONO % 9.4 % (0.0-10.0); NEUT % 64.7 % (50.0-75.0); RBC 4.29 Mil/uL (4.40-5.90); RED CELL DISTRIBUTION WIDTH 15.5 % (11.5-14.5); WHITE BLOOD COUNT 6.2 K/uL (4.8-10.8)
[2018-03-26 07:50] LABS: ALB/GLOB RATIO 1.1 (1.0-2.1); ALBUMIN 3.8 g/dL (3.5-5.0); ALT/SGPT 33 U/L (21-72); AST/SGOT 25 U/L (17-59); BLOOD UREA NITROGEN 11 mg/dL (9-20); GFR NON-AFRICAN AMERICAN > 60
[2018-03-26] MEDS: Pantoprazole 40 mg EC Tab PO SCH ×2 (09:25→17:43)
[2018-03-26] MEDS: Enoxaparin 40 mg Syringe SC SCH (09:25)
[2018-03-26] MEDS ORDERED: VANCOMYCIN IVPB SCH (10:00)
[2018-03-26] MEDS ORDERED: Vancomycin 1,350 MG in Sodium Chloride 0.9% 500 ML IVPB ONE (10:00)
[2018-03-26] MEDS ORDERED: SODIUM CHLORIDE 0.9% IVPB SCH (10:00)
--- NOTE | 2018-03-26 20:25 | PN ---
DATE: 03/25/2018 SUBJECTIVE: The patient was not in any cardiopulmonary distress. PHYSICAL EXAMINATION: VITAL SIGNS: Blood pressure 137/76, temperature 98.5, respiratory rate 20 and pulse 70. HEENT: Pupils equal, reactive to light. Normal-appearing mucosa of the conjunctivae, oropharynx and nasal membrane mucosa. NECK: Supple. No JVD. No carotid bruit. No lymph nodes, no thyromegaly. CHEST AND LUNGS: Bilateral symmetrical expansion. Good air exchange. No rales, no rhonchi. CARDIOVASCULAR: PMI not localized. S1 and S2. No additional sounds. ABDOMEN: Normoactive bowel sounds. No tenderness. No organomegaly. No masses. EXTREMITIES: No cyanosis, no clubbing. There is swelling and redness of the left lower extremity. PORCELAIN ENAMEL INSTALLER: Alert, awake, oriented x2. No neurological deficit could be appreciated. ASSESSMENT: 1. Cellulitis of the left lower extremity on Zosyn and vancomycin. 2. Type 2 diabetes mellitus. 3. Hypertension. PLAN: Continue current IV antibiotics. CT of the left lower extremity was ordered, we will follow the results. Monitor electrolytes. Lucero Leonard MD
--- NOTE | 2018-03-26 20:29 | PN ---
DATE: 03/26/2018 SUBJECTIVE: He is not in any cardiopulmonary distress. CAT scan of the left lower extremity was done that did not show any abscess or drainable collection. PHYSICAL EXAMINATION: VITAL SIGNS: Blood pressure 124/71, temperature 98.3, respiratory rate 20 and pulse 62. HEENT: Pupils equal, reactive to light. Normal-appearing mucosa of the conjunctivae, oropharynx and nasal membrane mucosa. NECK: Supple. No JVD. No carotid bruit. No lymph nodes. No thyromegaly. CHEST AND LUNGS: Bilateral symmetrical expansion. Good air exchange. No rales, no rhonchi. CARDIOVASCULAR: PMI not localized. S1, S2. No additional sounds. ABDOMEN: Normoactive bowel sounds. No tenderness. No organomegaly. No masses. EXTREMITIES: No cyanosis, no clubbing, no edema. The redness in the left lower extremity is decreasing. BUS ANALYST: Alert, awake, oriented x3. No neurological deficit could be appreciated. ASSESSMENT: Cellulitis of the left lower extremity, hypertension, type 2 diabetes mellitus, benign prostate hypertrophy, metastatic cancer lung. PLAN: Continue current antibiotics and follow ID recommendations. Lucero Leonard MD
[2018-03-26] MEDS: Piperacillin/Tazobact 2.25 GM in Sodium Chloride 100 ML IVPB SCH (21:47)
--- NOTE | 2018-03-26 22:28 | CP.PCM.PN ---
Subjective - Date & Time of Evaluation Date of Evaluation: 03/26/18 Time of Evaluation: 22:27 - Subjective Subjective: CHIEF COMPLAINTS TODAY : AFEBRILE. LT. LE CELLULITUS/AND EDEMA IMPROVING GRADUALLY ROS. HEENT : N. Resp : No cough, wheezing ,pleuritic CP ,or hemoptysis Cardio : No anginal CP, PND, orthopnea, palpitation GI : No abd.pain, n/v ,diarrhea or GI bleeding . ELECTROMECHANICAL TECHNICIAN : No headache, vertigo, focal deficit. Musculoskel : No joint swelling , Derm : CELLULITIS LLE /EDEMA+ve improving Psych : Normal affect. Ext : No swelling ,calf pain PE. Pt. is alert awake in no distress. V.S As noted in the chart Head ,ear nose,throat and eyes : Normal. Neck : Supple with normal carotids. Lungs: Clear air entry. Heart : S1 & S2 normal with S4. No murmur. Abd : Soft non tender with normal bowel sounds. Neuro : Moves all ext. with no localized deficit. Ext :Non tender calves CELLULITIS LLE /EDEMA+VE IMPROVING Derm : No rashes or decubitus ulcer. LABS/RADIOLOGY: REVIEWED VANCO TROUGH 6.7 LOW. ( ON IV 1 GM IVPB Q 12HRLY. ) Objective - Vital Signs/Intake and Output Vital Signs (last 24 hours): Temp Pulse Resp BP Pulse Ox 98.8 F 55 L 20 136/81 95 03/26/18 16:00 03/26/18 16:00 03/26/18 16:00 03/26/18 16:00 03/26/18 16:00 Intake and Output: 03/26/18 03/27/18 18:59 06:59 Intake Total 550 Balance 550 - Medications Medications: Current Medications Acetaminophen (Tylenol 325mg Tab) 650 mg PO Q6 PRN PRN Reason: Fever >100.4 F Aspirin (Ecotrin) 81 mg PO DAILY [facility] Last Admin: 03/26/18 09:25 Dose: 81 mg Bisoprolol Fumarate (Zebeta) 5 mg PO BID [facility] Last Admin: 03/26/18 17:42 Dose: 5 mg Enoxaparin Sodium (Lovenox) 40 mg SC DAILY [facility] Last Admin: 03/26/18 09:25 Dose: 40 mg Folic Acid (Folic Acid) 1 mg PO DAILY [facility] Last Admin: 03/26/18 09:25 Dose: 1 mg Hydralazine HCl (Apresoline) 50 mg PO BID [facility] Last Admin: 03/26/18 17:43 Dose: 50 mg Vancomycin HCl 1,350 mg/ (Sodium Chloride) 250 mls @ 166.6 mls/hr IVPB Q12H [facility] PRN Reason: Protocol Piperacillin Sod/Tazobactam (Sod 2.25 gm/ Sodium Chloride) 100 mls @ 200 mls/hr IVPB Q8H [facility] PRN Reason: Protocol Last Admin: 03/26/18 21:47 Dose: 200 mls/hr Oxycodone HCl (Oxycodone Immediate Release Tab) 5 mg PO Q6H PRN PRN Reason: Pain, moderate (4-7) Pantoprazole Sodium (Protonix Ec Tab) 40 mg PO BID [facility] Last Admin: 03/26/18 17:43 Dose: 40 mg Tamsulosin HCl (Flomax) 0.4 mg PO BID [facility] Last Admin: 03/26/18 17:42 Dose: 0.4 mg - Labs Labs: 03/26/18 07:10 03/26/18 07:10 PT 12.0 SECONDS (9.7-12.2) 03/23/18 10:05 INR 1.1 03/23/18 10:05 APTT 36 SECONDS (21-34) H 03/23/18 10:05 Assessment and Plan (1) Erysipelas of lower extremity Assessment & Plan: CT RT.LE CONSISTENT W CELLULITIS/STI . NO OSSEOUS PATHOLOGY. DECREASE IV zOSYN 2.25 IVPB q 8 HOURLY. INCREASE iv VANCOMYCIN 1350 MG IVPB EVERY 12 HOURLY. 02/20/18. F/U VANCO TROUGH LEVEL PRIOR TO 4TH DOSE AND KEEP BETWEEN 10 - 20MG/ML CASE DISCUSSED WITH STAFF. F/U RENAL FUNCTIONS CLOSELY. F/U BLOOD WORKS. WILL DISCUSS WITH DR UMANA TO CONSIDER [place]/OR OPD INFUSION FOR 7-10DAYS WITH IV VANCOMYCIN. SO THAT PT CAN GET HIS CHEMO THERAPY MICHELLE. Status: Acute (2) Diabetes mellitus Status: Acute (3) HTN (hypertension) Status: Acute (4) Non-small cell lung cancer (NSCLC) Status: Acute (5) Obesity, morbid Status: Acute
[2018-03-27] MEDS: Enoxaparin 40 mg Syringe SC SCH (09:23)
[2018-03-27] MEDS: Pantoprazole 40 mg EC Tab PO SCH ×2 (09:24→18:21)
[2018-03-27] MEDS: Piperacillin/Tazobact 2.25 GM in Sodium Chloride 100 ML IVPB SCH ×2 (14:11→21:49)
--- NOTE | 2018-03-27 14:11 | CP.PCM.PN ---
Subjective - Date & Time of Evaluation Date of Evaluation: 03/27/18 Time of Evaluation: 14:11 - Subjective Subjective: CHIEF COMPLAINTS TODAY : AFEBRILE. LT. LE CELLULITUS/AND EDEMA IMPROVING GRADUALLY ROS. HEENT : N. Resp : No cough, wheezing ,pleuritic CP ,or hemoptysis Cardio : No anginal CP, PND, orthopnea, palpitation GI : No abd.pain, n/v ,diarrhea or GI bleeding . GRAPHIC ARTIST : No headache, vertigo, focal deficit. Musculoskel : No joint swelling , Derm : CELLULITIS LLE /EDEMA+ve improving Psych : Normal affect. Ext : No swelling ,calf pain PE. Pt. is alert awake in no distress. V.S As noted in the chart Head ,ear nose,throat and eyes : Normal. Neck : Supple with normal carotids. Lungs: Clear air entry. Heart : S1 & S2 normal with S4. No murmur. Abd : Soft non tender with normal bowel sounds. Neuro : Moves all ext. with no localized deficit. Ext :Non tender calves CELLULITIS LLE /EDEMA+VE IMPROVING Derm : No rashes or decubitus ulcer. LABS/RADIOLOGY: REVIEWED REPEAT VANCO TROUGH 03/27/18 - 8.0 LOW,( WILL GET PEAK LEVEL TODAY TO DECIDE DOSAGE ) VANCO TROUGH 6.7 LOW. ( ON IV 1 GM IVPB Q 12HRLY. ) Objective - Vital Signs/Intake and Output Vital Signs (last 24 hours): Temp Pulse Resp BP Pulse Ox 98.8 F 61 20 144/77 98 03/27/18 08:23 03/27/18 08:23 03/27/18 08:23 03/27/18 08:23 03/27/18 08:23 Intake and Output: 03/27/18 03/27/18 06:59 18:59 Intake Total 800 Balance 800 - Medications Medications: Current Medications Acetaminophen (Tylenol 325mg Tab) 650 mg PO Q6 PRN PRN Reason: Fever >100.4 F Aspirin (Ecotrin) 81 mg PO DAILY [facility] Last Admin: 03/27/18 09:23 Dose: 81 mg Bisoprolol Fumarate (Zebeta) 5 mg PO BID [facility] Last Admin: 03/27/18 09:24 Dose: 5 mg Enoxaparin Sodium (Lovenox) 40 mg SC DAILY [facility] Last Admin: 09/24/18 09:23 Dose: 40 mg Folic Acid (Folic Acid) 1 mg PO DAILY [facility] Last Admin: 03/27/18 09:23 Dose: 1 mg Hydralazine HCl (Apresoline) 50 mg PO BID [facility] Last Admin: 03/27/18 09:24 Dose: 50 mg Vancomycin HCl 1,350 mg/ (Sodium Chloride) 250 mls @ 166.6 mls/hr IVPB Q12H [facility] PRN Reason: Protocol Last Admin: 03/27/18 10:04 Dose: 166.6 mls/hr Piperacillin Sod/Tazobactam (Sod 2.25 gm/ Sodium Chloride) 100 mls @ 200 mls/ hr IVPB Q8H [facility] PRN Reason: Protocol Last Admin: 03/26/18 21:47 Dose: 200 mls/hr Oxycodone HCl (Oxycodone Immediate Release Tab) 5 mg PO Q6H PRN PRN Reason: Pain, moderate (4-7) Pantoprazole Sodium (Protonix Ec Tab) 40 mg PO BID [facility] Last Admin: 03/27/18 09:24 Dose: 40 mg Tamsulosin HCl (Flomax) 0.4 mg PO BID [facility] Last Admin: 03/27/18 09:23 Dose: 0.4 mg - Labs Labs: 03/26/18 07:10 03/26/18 07:10 PT 12.0 SECONDS (9.7-12.2) 03/23/18 10:05 INR 1.1 03/23/18 10:05 APTT 36 SECONDS (21-34) H 03/23/18 10:05 Assessment and Plan (1) Erysipelas of lower extremity Assessment & Plan: CT RT.LE CONSISTENT W CELLULITIS/STI . NO OSSEOUS PATHOLOGY. DECREASE IV zOSYN 2.25 IVPB q 8 HOURLY. INCREASE iv VANCOMYCIN 1350 MG IVPB EVERY 12 HOURLY. 02/20/18. F/U VANCO TROUGH LEVEL PRIOR TO 4TH DOSE AND KEEP BETWEEN 10 - 20MG/ML F/U VANC PEAK ,1HOUR AFTER THE DOSE TODAY CASE DISCUSSED WITH PMD- PT FOR [facility] CATH IN AM . F/U RENAL FUNCTIONS CLOSELY. F/U BLOOD WORKS. Status: Acute (2) Diabetes mellitus Status: Acute (3) HTN (hypertension) Status: Acute (4) Non-small cell lung cancer (NSCLC) Assessment & Plan: ONCOLOGY EVALUATION PER DR UMANA. Status: Acute (5) Obesity, morbid Status: Acute
--- NOTE | 2018-03-27 14:42 | CP.PCM.CON ---
<RamiresMamta - Last Filed: 03/27/18 16:30> History of Present Illness - History of Present Illness History of Present Illness: 63 year old male with PMH of metastatic lung cancer, GERD, HTN, DM 2 and BPH was seen and examined for worsening of the left leg cellulitis and bilateral leg edema who was admitted on 03/23, Meds Allergies/Adverse Reactions: Allergies Allergy/AdvReac Type Severity Reaction Status Date / Time No Known Allergies Allergy Verified 03/23/18 09:23 - Medications Medications: Current Medications Acetaminophen (Tylenol 325mg Tab) 650 mg PO Q6 PRN PRN Reason: Fever >100.4 F Aspirin (Ecotrin) 81 mg PO DAILY [facility] Last Admin: 03/27/18 09:23 Dose: 81 mg Bisoprolol Fumarate (Zebeta) 5 mg PO BID [facility] Last Admin: 03/27/18 09:24 Dose: 5 mg Enoxaparin Sodium (Lovenox) 40 mg SC DAILY [facility] Last Admin: 03/27/18 09:23 Dose: 40 mg Folic Acid (Folic Acid) 1 mg PO DAILY [facility] Last Admin: 03/27/18 09:23 Dose: 1 mg Hydralazine HCl (Apresoline) 50 mg PO BID [facility] Last Admin: 03/27/18 09:24 Dose: 50 mg Vancomycin HCl 1,350 mg/ (Sodium Chloride) 250 mls @ 166.6 mls/hr IVPB Q12H [facility] PRN Reason: Protocol Last Admin: 03/27/18 10:04 Dose: 166.6 mls/hr Piperacillin Sod/Tazobactam (Sod 2.25 gm/ Sodium Chloride) 100 mls @ 200 mls/ hr IVPB Q8H [facility] PRN Reason: Protocol Last Admin: 03/27/18 14:11 Dose: 200 mls/hr Pantoprazole Sodium (Protonix Ec Tab) 40 mg PO BID [facility] Last Admin: 03/27/18 09:24 Dose: 40 mg Tamsulosin HCl (Flomax) 0.4 mg PO BID [facility] Last Admin: 03/27/18 09:23 Dose: 0.4 mg Results - Vital Signs Recent Vital Signs: Last Vital Signs Temp 98.8 F 03/27/18 08:23 Pulse 61 03/27/18 08:23 Resp 20 03/27/18 08:23 BP 144/77 03/27/18 08:23 Pulse Ox 98 03/27/18 08:23 - Labs Result Diagrams: 03/26/18 07:10 03/26/18 07:10 Labs: Laboratory Results - last 24 hr 03/26/18 03/26/18 03/27/18 16:20 21:08 16:13 POC Glucose (mg/dL) 110 127 H 146 H <StevoVladimir jamison Jayden - Last Filed: 03/27/18 16:55> History of Present Illness - History of Present Illness History of Present Illness: General Surgery: Dr Ingram 63 year old male with PMH of metastatic lung cancer, GERD, HTN, DM 2 and BPH was seen and examined for worsening of the left leg cellulitis and bilateral leg edema who was admitted on 03/23. 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 Surgery requested for chemoport insertion ROS -n/v, -f/c, -sob, -cp Review of Systems - Review of Systems All systems: reviewed and no additional remarkable complaints except (as per hpi ) Past Patient History - Past Medical History & Family History Past Medical History?: Yes - Past Social History Smoking Status: Former Smoker - CARDIAC Hx Hypertension: Yes - PULMONARY Hx Respiratory Disorders: No - NEUROLOGICAL Hx Neurological Disorder: No - HEENT Hx HEENT Problems: Yes Other/Comment: poor visio - RENAL Hx Chronic Kidney Disease: No - ENDOCRINE/METABOLIC Hx Endocrine Disorders: Yes Hx Diabetes Mellitus Type 2: Yes (diet controlled) - HEMATOLOGICAL/ONCOLOGICAL Hx Blood Disorders: No Hx Cancer: Yes (LUNG, SPINE PER PATIENT) - INTEGUMENTARY Hx Dermatological Problems: Yes Other/Comment: athlete's foot - MUSCULOSKELETAL/RHEUMATOLOGICAL Hx Falls: No - GASTROINTESTINAL Hx Gastrointestinal Disorders: Yes Hx Constipation: Yes Hx Gastroesophageal Reflux: Yes Other/Comment: Acid reflux - GENITOURINARY/GYNECOLOGICAL Hx Genitourinary Disorders: Yes Hx Prostate Problems: Yes - PSYCHIATRIC Hx Substance Use: No - SURGICAL HISTORY Hx Surgeries: Yes Other/Comment: cyst removed from neck, Lt. knee surgery; L 5th digit tendon repair,lung bx - ANESTHESIA Hx Anesthesia: Yes Hx Anesthesia Reactions: Yes (nausea,vomitting) Meds - Medications Medications: Current Medications Acetaminophen (Tylenol 325mg Tab) 650 mg PO Q6 PRN PRN Reason: Fever >100.4 F Aspirin (Ecotrin) 81 mg PO DAILY [facility] Last Admin: 03/27/18 09:23 Dose: 81 mg Bisoprolol Fumarate (Zebeta) 5 mg PO BID [facility] Last Admin: 03/27/18 09:24 Dose: 5 mg Enoxaparin Sodium (Lovenox) 40 mg SC DAILY [facility] Last Admin: 03/27/18 09:23 Dose: 40 mg Folic Acid (Folic Acid) 1 mg PO DAILY [facility] Last Admin: 03/27/18 09:23 Dose: 1 mg Hydralazine HCl (Apresoline) 50 mg PO BID [facility] Last Admin: 03/27/18 09:24 Dose: 50 mg Vancomycin HCl 1,350 mg/ (Sodium Chloride) 250 mls @ 166.6 mls/hr IVPB Q12H [facility] PRN Reason: Protocol Last Admin: 03/27/18 10:04 Dose: 166.6 mls/hr Piperacillin Sod/Tazobactam (Sod 2.25 gm/ Sodium Chloride) 100 mls @ 200 mls/ hr IVPB Q8H [facility] PRN Reason: Protocol Last Admin: 03/27/18 14:11 Dose: 200 mls/hr Oxycodone HCl (Oxycodone Immediate Release Tab) 5 mg PO Q6H [facility] PRN Reason: Pain, moderate (4-7) Pantoprazole Sodium (Protonix Ec Tab) 40 mg PO BID [facility] Last Admin: 03/27/18 09:24 Dose: 40 mg Tamsulosin HCl (Flomax) 0.4 mg PO BID [facility] Last Admin: 03/27/18 09:23 Dose: 0.4 mg Physical Exam - Constitutional Appears: Non-toxic, No Acute Distress - Eye Exam Eye Exam: Normal appearance - ENT Exam ENT Exam: Mucous Membranes Moist - Respiratory Exam Respiratory Exam: Clear to Auscultation Bilateral. absent: Accessory Muscle Use , Respiratory Distress - Cardiovascular Exam Cardiovascular Exam: REGULAR RHYTHM, +S1, +S2 - GI/Abdominal Exam GI & Abdominal Exam: Normal Bowel Sounds - Extremities Exam Extremities exam: Positive for: pedal pulses present - Skin Skin Exam: Warm Results - Vital Signs Recent Vital Signs: Last Vital Signs Temp 98.8 F 03/27/18 08:23 Pulse 61 03/27/18 08:23 Resp 20 03/27/18 08:23 BP 144/77 03/27/18 08:23 Pulse Ox 98 03/27/18 08:23 - Labs Result Diagrams: 03/26/18 07:10 03/26/18 07:10 Labs: Laboratory Results - last 24 hr 03/26/18 03/26/18 16:20 21:08 POC Glucose (mg/dL) 110 127 H Assessment & Plan - Assessment and Plan (Free Text) Assessment: 63M w/ small cell ca; needs chemoport Plan: npo @ [facility] on schedule for tomorrow d/w Dr Juan Jose Whiteside, PGY4
[2018-03-27] MEDS ORDERED: Vancomycin 1,350 MG in Sodium Chloride 0.9% 500 ML IVPB SCH ×2 (17:45→22:00)
--- NOTE | 2018-03-28 01:51 | PN ---
DATE: 03/27/2018 SUBJECTIVE: The patient is seen today 03/27/2018. He still has some redness and tenderness in the left lower extremity. The patient is on vancomycin as per ID PHYSICAL EXAMINATION: VITAL SIGNS: Blood pressure 166/78, temperature 98.2, respiratory rate 20 and pulse 61. HEENT: Pupils equal, reactive to light. Normal-appearing mucosa of the conjunctivae, oropharynx and nasal membrane mucosa. NECK: Supple. No JVD. No carotid bruit. No lymph node. No thyromegaly. CHEST AND LUNGS: Bilateral symmetrical expansion. Good air exchange. No rales, no rhonchi. CARDIOVASCULAR SYSTEM: PMI not localized. S1, S2. No additional sounds. ABDOMEN: Normoactive bowel sounds. No tenderness. No organomegaly. No masses. EXTREMITIES: No cyanosis, no clubbing. There is slight swelling of the left lower extremity with redness and tenderness which is slightly better. SHIPPING ROOM HELPER: Alert, awake, oriented x3. No neurological deficit could be appreciated. ASSESSMENT: 1. Nonresolving cellulitis of the left lower extremity. 2. Type 2 diabetes mellitus. 3. Hypertension. 4. Metastatic cancer of lung. PLAN: Discussed the patient's condition with Dr. Russell Auguste. We will arrange for Port-A-Cath insertion and we decided to have the patient continue IV antibiotics for 7 more days and have a dermatology consult as an outpatient for rashes on the right elbow area as well as the nonresolving cellulitis of the left lower extremity. Lucero Leonard MD
[2018-03-28] MEDS: Piperacillin/Tazobact 2.25 GM in Sodium Chloride 100 ML IVPB SCH ×4 (06:14→21:00)
[2018-03-28] MEDS ORDERED: ceFAZolin IV 1 gm in Dextrose 2 GM/100 ML BAG IVPB ONE (08:28)
[2018-03-28] MEDS ORDERED: Sodium Chloride 0.9% 20 ML IV ONE (08:28)
[2018-03-28] MEDS ORDERED: HEPARIN-NS 5,000 UNITS/500 ML 5,000 UNIT/500 ML BAG IV ONE (08:29)
[2018-03-28] MEDS ORDERED: Lidocaine Hydrochloride 0 ML INJ ONE ×2 (08:29→08:32)
[2018-03-28] MEDS ORDERED: Bupivacaine 0.25% 20 ML INJ IJ ONE (08:36)
[2018-03-28] MEDS ORDERED: Midazolam 2 MG/2 ML VIAL ONE (08:42)
[2018-03-28] MEDS ORDERED: Propofol 10 mg/ml Inj (20 ML) ONE ×2 (08:55→09:05)
[2018-03-28] MEDS ORDERED: Iohexol 240 (50 ml) ONE (09:40)
[2018-03-28] MEDS ORDERED: Neostigmine Methylsulfate 3mg/3ml Syringe IV ONE (09:44)
[2018-03-28] MEDS ORDERED: HYDROmorphone 0.5 mg/0.5 ml ISec IVP PRN (10:09)
[2018-03-28] MEDS ORDERED: Oxycodone/Acetaminophen 5/325 mg Tab PO PRN (10:15)
--- NOTE | 2018-03-28 10:16 | RAD ---
Date of service: 03/28/2018 PROCEDURE: Intraoperative Fluoroscopy. HISTORY: Small cell lung cancer FINDINGS: Fluoroscopic assistance was provided for right-sided PermCath placement. Please refer to the operative report from SHILA Banks.
--- NOTE | 2018-03-28 10:17 | PCM.SURG1 ---
Surgeon's Initial Post Op Note - Surgeon's Notes Surgeon: Dr. Ingram Cork Sorter: Concha Willson Type of Anesthesia: General Endo, Local Anesthesia Administered By: ZEYNEP Pre-Operative Diagnosis: metastatic lung CA needing chemotherapy Operative Findings: good R IJ vein Post-Operative Diagnosis: Same Operation Performed: portacath insertion to R IJ vein Specimen/Specimens Removed: none Estimated Blood Loss: EBL {In ML}: 10 Blood Products Given: N/A Drains Used: No Drains Post-Op Condition: Good Date of Surgery/Procedure: 03/28/18 Time of Surgery/Procedure: 10:17
[2018-03-28] MEDS: Pantoprazole 40 mg EC Tab PO SCH ×2 (11:21→18:42)
--- NOTE | 2018-03-28 11:22 | RAD ---
Date of service: 03/28/2018 HISTORY: in pacu , portacath COMPARISON: 10/31/2017 FINDINGS: LUNGS: No active pulmonary disease. PLEURA: No significant pleural effusion identified, no pneumothorax apparent. CARDIOVASCULAR: Cardiomegaly. No evidence of acute, significant cardiovascular disease. OSSEOUS STRUCTURES: No significant abnormalities. VISUALIZED UPPER ABDOMEN: Normal. OTHER FINDINGS: None. IMPRESSION: No active disease. No significant interval change compared to the prior examination(s).
[2018-03-28 13:31] VITALS: RESP 20
[2018-03-28 20:10] LABS: ALB/GLOB RATIO 1.1 (1.0-2.1); ALBUMIN 3.8 g/dL (3.5-5.0); ALT/SGPT 39 U/L (21-72); AST/SGOT 29 U/L (17-59); BLOOD UREA NITROGEN 10 mg/dL (9-20); CALCIUM 9.1 mg/dl (8.6-10.4); GFR NON-AFRICAN AMERICAN > 60
--- NOTE | 2018-03-28 20:40 | CP.PCM.PN ---
Subjective - Date & Time of Evaluation Date of Evaluation: 03/28/18 Time of Evaluation: 20:40 - Subjective Subjective: CHIEF COMPLAINTS TODAY : PATIENT SEEN POSTOP. S/P RIJ pORT-A-CATH INSERTION 03/28/18 C/O HEADACHE AND SOME BLURRY VISION / pOSTANESTHESIA AFEBRILE.VSS LT. LE CELLULITUS/AND EDEMA IMPROVING ROS. HEENT : N. Resp : No cough, wheezing ,pleuritic CP ,or hemoptysis Cardio : No anginal CP, PND, orthopnea, palpitation GI : No abd.pain, n/v ,diarrhea or GI bleeding . [employer] : No headache, vertigo, focal deficit. Musculoskel : No joint swelling , Derm : CELLULITIS LLE /EDEMA+ve improving Psych : Normal affect. Ext : No swelling ,calf pain PE. Pt. is alert awake in no distress. V.S As noted in the chart Head ,ear nose,throat and eyes : Normal. Neck : Supple with normal carotids. Lungs: Clear air entry. Heart : S1 & S2 normal with S4. No murmur. Abd : Soft non tender with normal bowel sounds. Neuro : Moves all ext. with no localized deficit. Ext :Non tender calves CELLULITIS LLE /EDEMA+VE IMPROVING Derm : No rashes or decubitus ulcer. LABS/RADIOLOGY: REVIEWED REPEAT VANCO TROUGH 03/27/18 - 8.0 LOW,( WILL GET PEAK LEVEL TODAY TO DECIDE DOSAGE ) VANCO TROUGH 6.7 LOW. ( ON IV 1 GM IVPB Q 12HRLY. ) Objective - Vital Signs/Intake and Output Vital Signs (last 24 hours): Temp Pulse Resp BP Pulse Ox 97.6 F 68 20 160/87 H 96 03/28/18 16:00 03/28/18 16:00 03/28/18 16:00 03/28/18 16:00 03/28/18 16:00 Intake and Output: 03/28/18 03/29/18 18:59 06:59 Intake Total 1200 Output Total 150 Balance 1050 - Medications Medications: Current Medications Acetaminophen (Tylenol 325mg Tab) 650 mg PO Q6 PRN PRN Reason: Fever >100.4 F Last Admin: 03/28/18 14:44 Dose: 650 mg Aspirin (Ecotrin) 81 mg PO DAILY [facility] Last Admin: 03/28/18 11:20 Dose: Not Given Bisoprolol Fumarate (Zebeta) 5 mg PO BID [facility] Last Admin: 03/28/18 18:42 Dose: 5 mg Clobetasol Propionate (Temovate 0.05% Ointment) 1 applic TOP BID [facility] Last Admin: 03/28/18 18:42 Dose: 1 applic Enoxaparin Sodium (Lovenox) 40 mg SC DAILY [facility] Last Admin: 03/27/18 09:23 Dose: 40 mg Folic Acid (Folic Acid) 1 mg PO DAILY [facility] Last Admin: 03/28/18 11:21 Dose: Not Given Hydralazine HCl (Apresoline) 50 mg PO BID [facility] Last Admin: 03/28/18 18:42 Dose: 50 mg Piperacillin Sod/Tazobactam (Sod 2.25 gm/ Sodium Chloride) 100 mls @ 200 mls/hr IVPB Q8H [facility]; Protocol Last Admin: 03/28/18 14:41 Dose: 200 mls/hr Vancomycin HCl 1,500 mg/ (Sodium Chloride) 500 mls @ 250 mls/hr IVPB Q12H [facility]; Protocol Last Admin: 03/28/18 12:40 Dose: 250 mls/hr Oxycodone/Acetaminophen (Percocet 5/325 Mg Tab) 2 tab PO Q4H PRN PRN Reason: Pain, moderate (4-7) Stop: 03/31/18 10:16 Pantoprazole Sodium (Protonix Ec Tab) 40 mg PO BID [facility] Last Admin: 03/28/18 18:42 Dose: 40 mg Tamsulosin HCl (Flomax) 0.4 mg PO BID [facility] Last Admin: 03/28/18 18:42 Dose: 0.4 mg - Labs Labs: 03/26/18 07:10 03/28/18 19:55 PT 12.0 SECONDS (9.7-12.2) 03/23/18 10:05 INR 1.1 03/23/18 10:05 APTT 36 SECONDS (21-34) H 03/23/18 10:05 Assessment and Plan (1) Erysipelas of lower extremity Status: Acute (2) Diabetes mellitus Status: Acute (3) HTN (hypertension) Status: Acute (4) Non-small cell lung cancer (NSCLC) Status: Acute (5) Obesity, morbid Status: Acute - Assessment and Plan (Free Text) Plan: D/C IV zOSYN 2.25 IVPB q 8 HOURLY. INCREASE iv VANCOMYCIN 1500 MG IVPB EVERY 12 HOURLY. 02/20/18. F/U VANCO TROUGH LEVEL PRIOR TO 4TH DOSE AND KEEP BETWEEN 10 - 20MG/ML CASE DISCUSSED WITH THE STAFF. PATIENT TO GET HOME iv INFUSION WITH VANCOMYCIN 1500 MG EVERY 12 HOURLY X 7 DAYS. FOLLOW-UP vANCO TROUGH LEVEL OUTPATIENT WITH cbc WITH DIFFERENTIAL, bmp ON tuesday / AND NOTIFY MD. PATIENT FOLLOW-UP WITH ONCOLOGY/AND DERMATOLOGY OUTPATIENT IF CELLULITIS DOES NOT RESOLVE FOR POSSIBLE SKIN BIOPSY. CASE DISCUSSED WITH THE STAFF. fOLLOW-UP CLOSELY FOR ANY VISUAL CHANGES OR ANY REACTION POSTOP.
--- NOTE | 2018-03-29 00:31 | PN ---
DATE: 03/28/2018 DAILY PROGRESS NOTE SUBJECTIVE: The patient is seen today, 03/28/2018. He is not in any cardiopulmonary distress. The patient is status post Port-A-Cath placement. PHYSICAL EXAMINATION: VITAL SIGNS: Blood pressure 160/87, temperature 97.6, respiratory rate 20 and pulse 68. HEENT: Pupils equal and reactive to light. Normal-appearing mucosa of the conjunctivae, oropharynx, and nasal membrane mucosa. NECK: Supple. No JVD. No carotid bruit. No lymph node. No thyromegaly. CHEST AND LUNGS: Bilateral symmetrical expansion. Good air exchange. No rales. No rhonchi. CARDIOVASCULAR SYSTEM: PMI not localized. S1, S2. No additional sounds. ABDOMEN: Normoactive bowel sounds. No tenderness. No organomegaly. No masses. EXTREMITIES: No cyanosis, no clubbing, no edema. The patient has redness and swelling of the left lower extremity is decreasing. CENTRAL NERVOUS SYSTEM: Alert, awake, oriented x2. No neurological deficit could be appreciated. ASSESSMENT: 1. Cellulitis of the left lower extremity. 2. Metastatic cancer of lung. 3. Type 2 diabetes mellitus, diet controlled. 4. Hypertension. PLAN: We are planning to discharge the patient on home IV antibiotic therapy, dermatology consultation as an outpatient, and to resume his home medications. Lucero Leonard MD
[2018-03-29] MEDS: Piperacillin/Tazobact 2.25 GM in Sodium Chloride 100 ML IVPB SCH (05:54)
[2018-03-29 07:42] VITALS: BP 136/79; PULSE 66; TEMP 97.8; O2SAT 95
[2018-03-29] MEDS: Pantoprazole 40 mg EC Tab PO SCH (09:07)
--- NOTE | 2018-03-29 17:17 | CP.PCM.PN ---
Subjective - Date & Time of Evaluation Date of Evaluation: 03/29/18 Time of Evaluation: 09:00 - Subjective Subjective: Alert and orientedx3, verbalized understanding of the instructions given, NAD. Objective - Vital Signs/Intake and Output Vital Signs (last 24 hours): Temp Pulse Resp BP Pulse Ox 97.8 F 66 20 136/79 95 03/29/18 07:39 03/29/18 07:39 03/29/18 07:39 03/29/18 07:39 03/29/18 07:39 Intake and Output: 03/29/18 03/29/18 06:59 18:59 Intake Total 1250 360 Balance 1250 360 - Labs Labs: 03/26/18 07:10 03/28/18 19:55 PT 12.0 SECONDS (9.7-12.2) 03/23/18 10:05 INR 1.1 03/23/18 10:05 APTT 36 SECONDS (21-34) H 03/23/18 10:05 Assessment and Plan - Assessment and Plan (Free Text) Assessment: Patient is seen and examined, alert and orientedx3, left leg swelling and pain improved. Discussed with DR Leonard, discharged home on iv antibiotics for 7 days via port a cath which was placed yesterday. Site is dry and clean. Home infusion is arranged as advised. Advised to follow up with PMD in 1 week. Also to follow up with DR Gallo for chemo plan.
== END 2018-03-29 09:32 | disposition home or self-care (01) | DRG 603 ==
LOC: C.ER 09:12 → C.9E 10:50 → C.3T 12:53
PROVIDERS: ADMIT Internal Medicine; ATTEND Internal Medicine
DX: L03.116 Cellulitis of left lower limb (principal); C34.90 Malignant neoplasm of unspecified part of unspecified bronchus or lung; E11.9 Type 2 diabetes mellitus without complications; I10 Essential (primary) hypertension; K21.9 Gastro-esophageal reflux disease without esophagitis; E66.01 Morbid (severe) obesity due to excess calories; F17.210 Nicotine dependence, cigarettes, uncomplicated; N40.0 Benign prostatic hyperplasia without lower urinary tract symptoms; A46 Erysipelas